=== PATIENT | female | born 1940 | race Caucasian/White ===

== ENCOUNTER → 2017-02-10 | Outpatient (CLI) | payer BC, OTHER ==
[~2017-02-10] MED LIST: ADVIN25050 INH; ALLGDUNK; ASPEC81 PO; ATEN50TA8 PO; CLCC1250 PO; DYZ PO; GLC500 PO; LEVAAER2 INH; LISI5TAB3 PO; MOME50SP5; PRED10TA PO; SIMV40TA2 PO
--- NOTE | 2017-02-10 16:16 | MAMMOGRAPHY REPORT ---
BILATERAL DIGITAL SCREENING MAMMOGRAM WITH CAD: 02/10/2017 CLINICAL HISTORY: Routine screening. TECHNIQUE: Bilateral CC and MLO views were obtained. Current study was also evaluated with a Compute r Aided Detection (CAD) system. COMPARISON: Comparison is made to exams dated: 04/10/2015 mammogram, 02/22/2014 mammogram, 02/21/2013 ma mmogram - [facility], 02/20/2012 mammogram, 02/18/2011 mammogram, and 02/14/2010 mammo gram. BREAST COMPOSITION: There are scattered areas of fibroglandular density in both breasts. FINDINGS: There is a 5 mm nodular asymmetry in the slightly inferior middle one third of the right b reast, only seen on the MLO view, that is increasingly prominent compared to prior mammograms. Altho ugh this could represent normal overlapping fibroglandular tissue, additional spot compression tomosy nthesis views and possibly ultrasound are recommended. No other suspicious mass, architectural distortion or cluster of microcalcifications is seen bilatera lly. IMPRESSION: ACR BI-RADS CATEGORY 0: INCOMPLETE EVALUATION: NEED ADDITIONAL IMAGING EVALUATION The 5 mm asymmetry in the inferior right breast needs additional evaluation. The patient will be called to schedule an appointment. Approximately 10% of breast cancers are not detected with mammography. A negative mammographic report should not delay biopsy if a clinically suggestive mass is present. Teodora Cornell M.D. ay/:02/10/2017 15:35:36 [employer] Inserter: Jenifer RESENDIZ(R)(Nitish), [facility] letter sent: Addl Imaging 0 BI-RADS Code: ACR BI-RADS Category 0: Incomplete Evaluation: Need Additional Imaging Evaluation
== END | disposition home or self-care (01) ==
LOC: C.MAMM 14:54
PROVIDERS: ATTEND Internal Medicine
DX: Z12.31 Encounter for screening mammogram for malignant neoplasm of breast (principal)

== ENCOUNTER → 2017-02-17 | Outpatient (CLI) | payer BC, OTHER ==
--- NOTE | 2017-02-17 14:43 | MAMMOGRAPHY REPORT ---
UNILATERAL RIGHT DIGITAL DIAGNOSTIC MAMMOGRAM TOMOSYNTHESIS AND TARGETED RIGHT ULTRASOUND: 02/17/2017 CLINICAL HISTORY: 76-year-old woman called back from screening mammography for an asymmetry in the in ferior right breast, best seen on the MLO view. TECHNIQUE: Spot compression right CC and MLO 2-D digital and tomosynthesis images were obtained. COMPARISON: Comparison is made to exams dated: 04/10/2015 mammogram, 02/22/2014 mammogram, 02/10/2017 margarita mogram, 02/21/2013 mammogram - [facility], 02/20/2012 mammogram, and 02/18/2011 mammog poornima. BREAST COMPOSITION: There are scattered areas of fibroglandular density in the right breast. FINDINGS: There is persistence of an oval circumscribed 5.1 x 7.9 x 6.3 mm mass in the 6:00 middle to anterior right breast. No associated architectural distortion or microcalcification. No other foca l area of architectural distortion or obvious mass is seen in the visualized right breast. Further e valuation with ultrasound was performed. Targeted ultrasound was performed in the 12:00, retroareolar and 6:00 axes of the right breast. In t he 6:00 periareolar right breast, there is an oval parallel circumscribed anechoic benign simple cyst with posterior acoustic enhancement. It measures 8.4 x 2.7 x 4.6 mm and correlates well in size, sh ape and location as the mammographic mass. This is benign and no further workup is needed at this ti me. IMPRESSION: ACR BI-RADS CATEGORY 2: BENIGN, TARGETED ULTRASOUND ACR BI-RADS CATEGORY 2: BENIGN The right inferior mammographic asymmetry represents a circumscribed oval mass, as seen on the additi onal mammographic views and tomosynthesis images, which correlates with a benign anechoic simple cyst on ultrasound. This is benign and no further workup is needed at this time. Recommend return to an nual screening mammography schedule. These results and recommendations were discussed with the patient at the time of the exam. Approximately 10% of breast cancers are not detected with mammography. A negative mammographic report should not delay biopsy if a clinically suggestive mass is present. Teodora Cornell M.D. ay/:02/17/2017 14:22:51 [place] Guide: Jenifer Feliciano, [facility] letter sent: Normal 09/08 BI-RADS Code: ACR BI-RADS Category 2: Benign Ultrasound BI-RADS: ACR BI-RADS Category 2: Benign
== END | disposition home or self-care (01) ==
LOC: C.MAMM 13:47
PROVIDERS: ATTEND Internal Medicine
DX: N64.89 Other specified disorders of breast (principal)

== ENCOUNTER 2024-05-01 13:24 | Inpatient (IN) ==
--- NOTE | 2024-05-01 13:48 | Emergency Department Note ---
Impression & Plan Acute and chronic respiratory failure with hypercapnia, Acute exacerbation of chronic obstructive pulmonary disease ED Provider Note Provider: Miles Gonzalez MD DATE OF SERVICE: 05/01/2024 CHIEF COMPLAINT: Trouble breathing, weakness HISTORY OF PRESENT ILLNESS: Patient is a 83-year-old female past medical history significant for COPD on chronic 2 L oxygen at home presenting here via ambulance from home. States increased weakness and losing weight the last several weeks at least. Last day or so has been more short of breath. Nebulizers at home not helping. No significant sick contacts at home. Reports some congestion that happens when she gets sick but chronic unchanged cough. States some palpitations today but no syncope or trauma. Chronic neuropathy of the lower legs but no new significant focal numbness or weakness or severe headache. Denies abdominal pain or nausea or vomiting but decreased intake and appetite. Received 3 DuoNebs for EMS with some improvement of her breathing. Still working to breathe and states hard to get out full sentences. Follows with pulmonary and [place]. States she was last this sick in 2007. PAST MEDICAL HISTORY: As noted above MEDICATIONS: Reviewed home medications SOCIAL HISTORY: lives at home with who is ill with cancer PHYSICAL EXAM: GENERAL: alert and oriented in no acute distress on stretcher Head: normocephalic and atraumatic EYES: No injection, discharge or icterus. EOMI. NECK: Trachea midline. Supple. ENT: Mucous membranes pink and moist. LUNGS: Airway patent. Significant work of breathing. 5-6 word dyspnea. Faint breath sounds bilaterally. HEART: Regular tachycardic rate and rhythm. No chest wall tenderness ABDOMEN: Soft and non-tender, without guarding or rebound. SKIN: Acyanotic, warm, dry, without rashes EXTREMITIES: Without swelling, tenderness or deformity NEUROLOGICAL: No focal deficits moving all extremities. No aphasia. No facial droop or slurred speech. EK bpm sinus tachycardia. LVH changes without clear acute ST segment elevation with some nonseptic inferior lateral T wave inversion. QTc 470. CONTINUOUS CARDIAC MONITORING: was ordered and showed a heart rate of 100s- 120spm in sinus tachycardia & later heart rate of the 90s in sinus rhythm. Patient's laboratory studies and imaging reviewed. Differential includes Reactive airway disease, pneumonia, pneumothorax, COPD, CHF, infections, cardiac ischemia, pulmonary embolism, musculoskeletal, gastrointestinal, as well as other pathologies. IMPRESSION/MEDICAL DECISION MAKING: Patient appears to be struggling to breathe but not hypoxic on her baseline 2 L oxygen. Some DuoNebs prior to arrival. Some tachycardia. Denies fever but concern for possible COPD exacerbation. X-ray to be obtained to exclude pneumonia or pneumothorax. Does not seem fluid overloaded on clinical exam. Denies significant chest pain. EKG obtained given the tachycardia but appears not to be A-fib or significant arrhythmia. Will give some steroid as well as additional breathing treatment. Given her work of breathing will initiate BiPAP. VBG sent but does not appear severely encephalopathic. Respiratory viral panel sent to look for possible viral etiology to her symptoms. Blood work here with minimal lactate elevation of 2.4 but a significant hypercarbia of 91 with a pH of 7.1. Again BiPAP was initiated. Small fluid bolus given. Chest x-ray per my review without evidence of pneumonia, pneumothorax, or significant fluid on the lungs. Troponin minimally up at 29 question demand related to her respiratory status. No significant electrolyte abnormality signs of renal dysfunction. Leukocytosis of 15.6. Unclear if this is reactive but do not again see an obvious pneumonia. Will cover with a dose of azithromycin given her COPD for any atypical component and anti-inflammatory effect. Does have a history of CAD-will avoid stronger antibiotics at this point without an elevated procalcitonin. Improving with BiPAP. Will admit for further care here at the hospital. Respiratory viral panel does later returned negative. VBG with improving acidosis and hypercarbia. DIAGNOSIS: Acute on chronic hypoxic respiratory failure, acute COPD exacerbation DISPOSITION: Hospitalist will evaluate Patient was agreeable with this plan. Critical Care I have personally spent 42 minutes of critical care time in the direct management of this patient. This includes bedside care, interpretation of diagnostic studies, and testing, discussion with consultants, patient, and family members, and other required patient management activities. These 42 minutes is in excess of all separately billable procedures. Past Med/Surg History Problem List (Updated 05/01/24 @ 16:58 by Radha Brown PA-C) Hyperglycemia Elevated troponin Acute respiratory acidosis Acute exacerbation of chronic obstructive pulmonary disease (Acute) Acute and chronic respiratory failure with hypercapnia (Acute) Medical History HLD (hyperlipidemia) HTN (hypertension) Anxiety COPD (chronic obstructive pulmonary disease) Surgical History No pertinent past surgical history Family History Other Hypertension Social History (Updated 05/01/24 @ 16:22 by Radha Brown PA-C) Smoking Status: Former smoker Tobacco Type: Cigarettes Smoking End Date: 2007; Hx Alcohol Use: Yes Alcohol Intake Frequency: Monthly or Less Hx Substance Use: No Feels Safe at Home: Yes Allergies Allergies Allergy/AdvReac Type Severity Reaction Status Date / Time No Known Allergies Allergy Mild Verified 05/25/08 10:49 bee venom protein (honey bee) AdvReac Intermediate SWELLING Verified 05/01/24 14:54 Home Meds Home Medications Medication Instructions Recorded Confirmed aspirin 81 mg tablet,delayed 81 mg PO DAILY ##0 05/25/08 05/01/24 release fexofenadine-pseudoephedrine ER 1 tab PO QAM ##0 05/25/08 05/01/24 180 mg-240 mg tablet,ext.release 24 hr (Katie-D 24 Hour) fluticasone fur. 100 mcg-umeclid 1 inh inhalation DAILY 05/01/24 05/01/24 62.5 mcg-vilant 25 mcg inhalat.powder (Trelegy Ellipta) food supplemt, lactose-reduced 1 ea PO DAILY 05/01/24 05/01/24 (Ensure oral liquid) hydrocortisone 2.5 % topical cream 1 applic topical DAILY 05/01/24 05/01/24 levalbuterol tartrate 45 1 puff inhalation DAILY 05/01/24 05/01/24 mcg/actuation aerosol inhaler lisinopril 10 mg tablet 10 mg PO DAILY 05/01/24 05/01/24 rosuvastatin 20 mg tablet 20 mg PO DAILY 05/01/24 05/01/24 Results & Data (ED) Vital Signs Vital Signs - 24 hr 05/01/24 13:31 05/01/24 13:35 05/01/24 13:35 Temperature 36.8 C Temperature Source Oral Pulse Rate 113 H 111 H Pulse Rate [Apical] Pulse Rate from SpO2 Sensor Respiratory Rate 28 H Respiratory Effort / Characteristics Respiratory Depth Blood Pressure 142/92 H Blood Pressure Mean 108 Pulse Oximetry 95 Oxygen Delivery Method Nasal Cannula Nasal Cannula Oxygen Flow Rate 2 Fraction of Inspired Oxygen Sepsis Recent Fever Within 48 Hours No Sepsis New/Unexplained Change in Mental Status No Sepsis Action Taken by Nursing Physician Notified 05/01/24 14:08 05/01/24 14:08 05/01/24 14:30 Temperature Temperature Source Pulse Rate 103 H 96 H Pulse Rate [Apical] 103 H Pulse Rate from SpO2 Sensor Respiratory Rate 22 22 19 Respiratory Effort / Characteristics Spontaneous Accessory Muscle Use Short of Breath Spontaneous Accessory Muscle Use Respiratory Depth Deep Blood Pressure 109/53 L Blood Pressure Mean 78 Pulse Oximetry 97 97 98 Oxygen Delivery Method BiPAP BiPAP Oxygen Flow Rate Fraction of Inspired Oxygen 30 30 Sepsis Recent Fever Within 48 Hours Sepsis New/Unexplained Change in Mental Status Sepsis Action Taken by Nursing 05/01/24 14:35 05/01/24 15:00 05/01/24 15:30 Temperature Temperature Source Pulse Rate 102 H 99 H Pulse Rate [Apical] Pulse Rate from SpO2 Sensor 97 H Respiratory Rate 27 H 24 Respiratory Effort / Characteristics Respiratory Depth Blood Pressure 114/78 119/86 Blood Pressure Mean 93 97 Pulse Oximetry 97 96 98 Oxygen Delivery Method BiPAP Oxygen Flow Rate Fraction of Inspired Oxygen Sepsis Recent Fever Within 48 Hours Sepsis New/Unexplained Change in Mental Status Sepsis Action Taken by Nursing 05/01/24 16:00 05/01/24 17:00 05/01/24 17:11 Temperature Temperature Source Pulse Rate 92 H 80 89 Pulse Rate [Apical] Pulse Rate from SpO2 Sensor 94 H 81 Respiratory Rate 26 H 17 Respiratory Effort / Characteristics Respiratory Depth Blood Pressure 122/61 129/66 Blood Pressure Mean 88 87 Pulse Oximetry 97 96 Oxygen Delivery Method Oxygen Flow Rate Fraction of Inspired Oxygen Sepsis Recent Fever Within 48 Hours Sepsis New/Unexplained Change in Mental Status Sepsis Action Taken by Nursing 05/01/24 17:42 Temperature Temperature Source Pulse Rate 94 H Pulse Rate [Apical] Pulse Rate from SpO2 Sensor 96 H Respiratory Rate 20 Respiratory Effort / Characteristics Respiratory Depth Blood Pressure 138/64 Blood Pressure Mean 88 Pulse Oximetry 93 Oxygen Delivery Method Oxygen Flow Rate Fraction of Inspired Oxygen Sepsis Recent Fever Within 48 Hours Sepsis New/Unexplained Change in Mental Status Sepsis Action Taken by Nursing Laboratory Data 05/01/24 13:30 05/01/24 13:30 Lab Results 05/01/24 05/01/24 05/01/24 Range/Units 13:30 14:04 15:21 WBC 15.68 H (4.8-10.8) K/ul RBC 4.92 (4.20-5.40) M/uL Hgb 15.2 (12.0-16.0) g/dl Hct 46.7 (37.0-47.0) % MCV 94.9 (80.0-100.0) fL MCH 30.9 (25.0-34.0) pg MCHC 32.5 (32.0-36.0) g/dL RDW Std Deviation 45.8 (36.4-46.3) fL RDW Coeff of Aries 13.1 (11.5-14.5) % Plt Count 235 (130-400) K/uL MPV 10.5 (9.4-12.4) fL Immature Gran % (Auto) 0.3 % Neut % (Auto) 85.7 % Lymph % (Auto) 8.1 % Donley % (Auto) 4.8 % Eos % (Auto) 0.6 % Baso % (Auto) 0.5 % Neut # (Auto) 13.43 H (1.40-6.50) K/uL Lymph # (Auto) 1.27 (1.20-3.40) K/uL Donley # (Auto) 0.75 H (0.11-0.59) K/uL Eos # (Auto) 0.10 (0.00-0.50) K/uL Baso # (Auto) 0.08 (0.00-0.20) K/uL Immature Gran # (Auto) 0.05 (0.01-0.20) K/uL PT 10.4 (9.0-12.0) Seconds INR 1.0 (0.9-1.1) APTT 24 (21-31) Seconds PTT Ratio 0.9 ABG pH (7.35-7.45) ABG pCO2 (35-46) mmHg ABG pO2 (80-95) mmHg ABG HCO3 (19-24) mmol/L ABG O2 Saturation (90-95) % ABG Base Excess (-9-1.8) mEq/L Yair Test (Pos) VBG pH 7.13 L (7.36-7.41) VBG pCO2 91 H (38-50) mmHg VBG pO2 25 mmHg VBG HCO3 30 mmol/L VBG O2 Saturation < 60.0 % VBG Base Excess -1.5 mEq/L Oxygen Given Sodium 140 (136-145) mmol/L Potassium 4.3 (3.5-5.1) mmol/L Chloride 102 (98-107) mmol/L Carbon Dioxide 32 (21-32) mmol/L Anion Gap 6 (3-11) BUN 18 (6-23) mg/dl Creatinine 0.82 (0.6-1.2) mg/dl Est Cr Clr Drug Dosing 34.0 ml/min Est GFR ( Amer) 76.2 ml/min Est GFR (Non-Af Amer) 65.7 ml/min BUN/Creatinine Ratio 22.0 H (10-20) Glucose 237 H (70-99(Fasting)) mg/dl Lactate 2.4 H* 2.2 H* (0.4-2.0) mmol/L Calcium 9.3 (8.6-10.3) mg/dl Magnesium 2.2 (1.7-2.4) mg/dl Total Bilirubin 0.6 (0.2-1.0) mg/dl AST 22 (13-39) U/L ALT 16 (7-52) U/L Alkaline Phosphatase 73 (34-104) U/L Troponin I High Sens 29.6 H 49.1 H D (0-14) pg/ml Total Protein 7.0 (6.0-8.3) gm/dl Albumin 4.3 (3.4-5.0) gm/dl Globulin 2.7 (2.5-4.0) gm/dl Albumin/Globulin Ratio 1.6 (0.9-2) Procalcitonin 0.03 (0-0.5) ng/ml Adenovirus (PCR) Not Detected (NotDetected) B. pertussis DNA (PCR) Not Detected (NotDetected) B.parapertussis DNA PCR Not Detected (NotDetected) C. pneumoniae DNA (PCR) Not Detected (NotDetected) Coronavirus OC43 (PCR) Not Detected (NotDetected) Coronavirus HKU1 (PCR) Not Detected (NotDetected) Coronavirus 229E (PCR) Not Detected (NotDetected) SARS-CoV-2 (PCR) Not Detected (NotDetected) Coronavirus NL63 (PCR) Not Detected (NotDetected) Human Metapneumovir PCR Not Detected (NotDetected) Influenza Type A (PCR) Not Detected (NotDetected) Influenza Type B (PCR) Not Detected (NotDetected) M. pneumoniae (PCR) Not Detected (NotDetected) Parainfluenza 1 (PCR) Not Detected (NotDetected) Parainfluenza 2 (PCR) Not Detected (NotDetected) Parainfluenza 3 (PCR) Not Detected (NotDetected) Parainfluenza 4 (PCR) Not Detected (NotDetected) RSV (PCR) Not Detected (NotDetected) Entero/Rhino (PCR) Not Detected (NotDetected) 05/01/24 05/01/24 05/01/24 Range/Units 16:16 17:49 18:02 WBC (4.8-10.8) K/ul RBC (4.20-5.40) M/uL Hgb (12.0-16.0) g/dl Hct (37.0-47.0) % MCV (80.0-100.0) fL MCH (25.0-34.0) pg MCHC (32.0-36.0) g/dL RDW Std Deviation (36.4-46.3) fL RDW Coeff of Aries (11.5-14.5) % Plt Count (130-400) K/uL MPV (9.4-12.4) fL Immature Gran % (Auto) % Neut % (Auto) % Lymph % (Auto) % Donley % (Auto) % Eos % (Auto) % Baso % (Auto) % Neut # (Auto) (1.40-6.50) K/uL Lymph # (Auto) (1.20-3.40) K/uL [place]ley # (Auto) (0.11-0.59) K/uL Eos # (Auto) (0.00-0.50) K/uL Baso # (Auto) (0.00-0.20) K/uL Immature Gran # (Auto) (0.01-0.20) K/uL PT (9.0-12.0) Seconds INR (0.9-1.1) APTT (21-31) Seconds PTT Ratio ABG pH 7.43 (7.35-7.45) ABG pCO2 47 H (35-46) mmHg ABG pO2 77 L (80-95) mmHg ABG HCO3 31 H (19-24) mmol/L ABG O2 Saturation 96.6 H (90-95) % ABG Base Excess 5.8 H (-9-1.8) mEq/L Yair Test Pos (Pos) VBG pH 7.29 L (7.36-7.41) VBG pCO2 73 H (38-50) mmHg VBG pO2 33 mmHg VBG HCO3 35 mmol/L VBG O2 Saturation < 60.0 % VBG Base Excess 5.9 mEq/L Oxygen Given 2 L Sodium (136-145) mmol/L Potassium (3.5-5.1) mmol/L Chloride (98-107) mmol/L Carbon Dioxide (21-32) mmol/L Anion Gap (3-11) BUN (6-23) mg/dl Creatinine (0.6-1.2) mg/dl Est Cr Clr Drug Dosing ml/min Est GFR ( Amer) ml/min Est GFR (Non-Af Amer) ml/min BUN/Creatinine Ratio (10-20) Glucose (70-99(Fasting)) mg/dl Lactate 3.1 H* (0.4-2.0) mmol/L Calcium (8.6-10.3) mg/dl Magnesium (1.7-2.4) mg/dl Total Bilirubin (0.2-1.0) mg/dl AST (13-39) U/L ALT (7-52) U/L Alkaline Phosphatase (34-104) U/L Troponin I High Sens (0-14) pg/ml Total Protein (6.0-8.3) gm/dl Albumin (3.4-5.0) gm/dl Globulin (2.5-4.0) gm/dl Albumin/Globulin Ratio (0.9-2) Procalcitonin (0-0.5) ng/ml Adenovirus (PCR) (NotDetected) B. pertussis DNA (PCR) (NotDetected) B.parapertussis DNA PCR (NotDetected) C. pneumoniae DNA (PCR) (NotDetected) Coronavirus OC43 (PCR) (NotDetected) Coronavirus HKU1 (PCR) (NotDetected) Coronavirus 229E (PCR) (NotDetected) SARS-CoV-2 (PCR) (NotDetected) Coronavirus NL63 (PCR) (NotDetected) Human Metapneumovir PCR (NotDetected) Influenza Type A (PCR) (NotDetected) Influenza Type B (PCR) (NotDetected) M. pneumoniae (PCR) (NotDetected) Parainfluenza 1 (PCR) (NotDetected) Parainfluenza 2 (PCR) (NotDetected) Parainfluenza 3 (PCR) (NotDetected) Parainfluenza 4 (PCR) (NotDetected) RSV (PCR) (NotDetected) Entero/Rhino (PCR) (NotDetected) Administered Medications Discontinued Medications Albuterol (Albut/Ipratrop 3mg/0.5mg Neb 3 Ml Vial) 12 ml NEB ONE ONE; Protocol Stop: 05/01/24 13:47 Last Admin: 05/01/24 13:57 Dose: 12 ml Documented By: JONATHAN Sodium Chloride (Nss) 250 mls @ 999 mls/hr IV .Q16M ONE Stop: 05/01/24 14:15 Last Infusion: 05/01/24 15:03 Dose: Infused Documented By: Admin: 05/01/24 14:10 Dose: 999 mls/hr Documented By: ANNY Azithromycin 500 mg/ Dextrose 255 mls @ 127.5 mls/hr IV NOW STA Stop: 05/01/24 16:25 Last Infusion: 05/01/24 17:06 Dose: Infused Documented By: Admin: 05/01/24 15:03 Dose: 127.5 mls/hr Documented By: ANNY Methylprednisolone (Methylprednisolone 125 Mg/2 Ml Vial) 60 mg IV NOW STA Stop: 05/01/24 13:47 Last Admin: 05/01/24 14:07 Dose: 60 mg Documented By: ANNY Imaging Data Radiologist's Impression: Chest X-Ray 05/01/24 13:46 XR chest 1V portable HISTORY: Dyspnea COMPARISON: Chest 05/28/2008. FINDINGS: No pneumothorax. No pleural effusions. Hyperexpanded lungs with emphysema again noted. No focal lung consolidations to suggest a pneumonia. No evidence for bone edema. The heart is normal in size. Calcifications within the aortic knob. No acute fractures. IMPRESSION: 1. No acute process within the chest. 2. Emphysema. ACT 112: Negative or not required by law. Electronically signed by: Noe Lloyd M.D. 05/01/2024 3:22 PM Discharge Plan Visit Data Chief Complaint: Respiratory Distress ED Provider: Miles Gonzalez Discharge Problem: Acute and chronic respiratory failure with hypercapnia, Acute exacerbation of chronic obstructive pulmonary disease Patient Disposition: Admitted As Inpatient Forms Stand Alone Forms: [facility] Prescriptions Prescriptions: No Action aspirin 81 mg Tablet,Delayed Release (Dr/Ec) 81 mg PO DAILY Qty: 0 fexofenadine-pseudoephedrine [Katie-D 24 Hour] 180-240 mg Tablet Extended Release 24 Hr 1 tab PO QAM Qty: 0 lisinopril 10 mg tablet 10 mg PO DAILY hydrocortisone 2.5 % cream 1 applic TOPICAL DAILY rosuvastatin 20 mg tablet 20 mg PO DAILY levalbuterol tartrate 45 mcg/actuation HFA aerosol inhaler 1 puff INHALATION DAILY Trelegy Ellipta 100-62.5-25 mcg blister with device 1 inh INHALATION DAILY Ensure Liquid 1 ea PO DAILY Referrals Referrals: Kerrie Kidd [Primary Care Provider] -
[2024-05-01 13:55] LABS: Base Excess VBG -1.5 mEq/L; HCO3 VBG 30 mmol/L; Oxygen Saturation VBG < 60.0 %; PCO2 VBG 91 mmHg (38-50); PO2 VBG 25 mmHg; pH VBG 7.13 (7.36-7.41)
[2024-05-01] MEDS: ALBUT/IPRATROP 3MG/0.5MG NEB 3 ML VIAL NEB ONE (13:57)
[2024-05-01 14:01] LABS: Basophils # (auto) 0.08 K/uL (0.00-0.20); Basophils % (auto) 0.5 %; Eosinophils % (auto) 0.6 %; Hematocrit (blood only) 46.7 % (37.0-47.0); Hemoglobin 15.2 g/dl (12.0-16.0); Immature Granulocytes # (auto) 0.05 K/uL (0.01-0.20); Immature Granulocytes % (auto) 0.3 %; Lymphocytes # (auto) 1.27 K/uL (1.20-3.40); Lymphocytes % (auto) 8.1 %; Mean Corpuscular Hemoglobin 30.9 pg (25.0-34.0); Mean Corpuscular Hgb Conc 32.5 g/dL (32.0-36.0); Mean Corpuscular Volume 94.9 fL (80.0-100.0); Mean Platelet Volume 10.5 fL (9.4-12.4); Monocytes # (auto) 0.75 K/uL (0.11-0.59); Monocytes % (auto) 4.8 %; Neutrophils # (auto) 13.43 K/uL (1.40-6.50); Neutrophils % (auto) 85.7 %; Platelet Count 235 K/uL (130-400); RDW Coefficient of Variation 13.1 % (11.5-14.5); RDW Standard Deviation 45.8 fL (36.4-46.3); Red Blood Count 4.92 M/uL (4.20-5.40); White Blood Count 15.68 K/ul (4.8-10.8)
[2024-05-01] MEDS: methylPREDNISolone 125 MG/2 ML VIAL IV STA (14:07)
[2024-05-01 14:09] LABS: Partial Thromboplastin Ratio 0.9; Partial Thromboplastin Time 24 Seconds (21-31); Prothrombin Time 10.4 Seconds (9.0-12.0)
[2024-05-01] MEDS: SODIUM CHLORIDE 0.9% 250 ML IV ONE (14:10)
[2024-05-01 14:15] LABS: Albumin Globulin Ratio 1.6 (0.9-2); Albumin Level 4.3 gm/dl (3.4-5.0); Bilirubin,Total 0.6 mg/dl (0.2-1.0); Calcium 9.3 mg/dl (8.6-10.3); Est GFR (African American) 76.2 ml/min; Est GFR (Non-African American) 65.7 ml/min; Globulin 2.7 gm/dl (2.5-4.0); Magnesium 2.2 mg/dl (1.7-2.4); Potassium 4.3 mmol/L (3.5-5.1)
[2024-05-01 14:21] LABS: Troponin I High Sensitivity 29.6 pg/ml (0-14)
[2024-05-01] MEDS: AZITHROMYCIN 500 MG in DEXTROSE 5% 250 ML IV STA (15:03)
--- NOTE | 2024-05-01 15:24 | XRay Report ---
XR chest 1V portable HISTORY: Dyspnea COMPARISON: Chest 05/28/2008. FINDINGS: No pneumothorax. No pleural effusions. Hyperexpanded lungs with emphysema again noted. No f ocal lung consolidations to suggest a pneumonia. No evidence for bone edema. The heart is normal in s ize. Calcifications within the aortic knob. No acute fractures. IMPRESSION: 1. No acute process within the chest. 2. Emphysema. ACT 112: Negative or not required by law. Electronically signed by: Noe Lloyd M.D. 05/01/2024 3:22 PM
--- NOTE | 2024-05-01 15:25 | History & Physical Report ---
Date of Service May 01, 2024 Assessment & Plan (1) Acute respiratory acidosis: (2) Acute exacerbation of chronic obstructive pulmonary disease: (3) Acute and chronic respiratory failure with hypercapnia: Plan: This is an 83-year-old female with PMH of COPD, chronic hypoxic respiratory failure on 2 L nasal cannula O2, hypertension, hyperlipidemia, anxiety and other medical problems listed below who presents with progressive shortness of breath over the past 3 to 4 days and was found to have a COPD exacerbation. Patient tachypneic on arrival, VBG pH 7.1 with pCO2 in 90s Afebrile, WBC 15.68K, procal 0.03, resp viral panel negative Meeting SIRs criteria but no clear infection Bipap initiated in ED with improvement, also received albuterol breathing tx, Solu-medrol 60mg IV and Azithromycin in ED Continue bipap with repeat VBG ABG at 1800, IV Solu-medrol 40mg Q8H, Duonebs QIDR, Azithromycin course, Mucinex, Mucomyst, incentive spirometry Remote hx of following with [facility] (4) Elevated troponin: Plan: Initial trop 29.6 -> 49.1 in setting of sinus tachycardia Continue trending troponin (5) Hyperglycemia: Plan: BSG 237, no known DM II hx, not on home meds Will obtain a1c, add SSI and glycemic consult given IV steroids and continue gentle IV fluids (6) HTN (hypertension): Plan: Normotensive. Continue lisinopril (7) HLD (hyperlipidemia): Plan: Continue statin (8) Anxiety: Plan: Previously on SSRI but discontinued weeks ago DVT Ppx: SQ heparin Code status: FULL PCP: Marti Dispo: Admitted to PCU Patient seen in collaboration with Dr. Paredes. Please see addendum. I spent a total of 75 minutes coordinating, documenting, and providing care for this patient excluding time spent in the performance of separately billed services. History of Present Illness Chief Complaint: SOB Primary Care Provider: Kerrie Kidd This is an 83-year-old female with PMH of COPD, chronic hypoxic respiratory failure on 2 L nasal cannula O2, hypertension, hyperlipidemia, anxiety and other medical problems listed below who presents with progressive shortness of breath over the past 3 to 4 days. Associated with productive cough with yellow sputum. Does have some pleuritic chest pain associated with it. No fever, chills, sore throat, nausea, vomiting, abdominal pain, dysuria. Struggles with chronic constipation, last bowel movement 2 days ago[address] with Dr[address] Kidd for primary care. Allergies Allergy/AdvReac Type Severity Reaction Status Date / Time No Known Allergies Allergy Mild Verified 05/25/08 10:49 bee venom protein (honey bee) AdvReac Intermediate SWELLING Verified 05/01/24 14:54 Home Medications Medication Instructions Recorded Confirmed Type aspirin 81 mg tablet,delayed 81 mg PO DAILY ##0 05/25/08 05/01/24 History release fexofenadine-pseudoephedrine ER 1 tab PO QAM ##0 05/25/08 05/01/24 History 180 mg-240 mg tablet,ext.release 24 hr (Katie-D 24 Hour) fluticasone fur. 100 mcg-umeclid 1 inh inhalation DAILY 05/01/24 05/01/24 History 62.5 mcg-vilant 25 mcg inhalat.powder (Trelegy Ellipta) food supplemt, lactose-reduced 1 ea PO DAILY 05/01/24 05/01/24 History (Ensure oral liquid) hydrocortisone 2.5 % topical cream 1 applic topical DAILY 05/01/24 05/01/24 History levalbuterol tartrate 45 1 puff inhalation DAILY 05/01/24 05/01/24 History mcg/actuation aerosol inhaler lisinopril 10 mg tablet 10 mg PO DAILY 05/01/24 05/01/24 History rosuvastatin 20 mg tablet 20 mg PO DAILY 05/01/24 05/01/24 History Past Med/Surg History Problem List (Updated 05/01/24 @ 16:58 by Radha Brown PA-C) Hyperglycemia Elevated troponin Acute respiratory acidosis Acute exacerbation of chronic obstructive pulmonary disease (Acute) Acute and chronic respiratory failure with hypercapnia (Acute) Medical History HLD (hyperlipidemia) HTN (hypertension) Anxiety COPD (chronic obstructive pulmonary disease) Surgical History No pertinent past surgical history Family History Other Hypertension Social History (Updated 05/01/24 @ 16:22 by Radha Brown PA-C) Smoking Status: Former smoker Tobacco Type: Cigarettes Smoking End Date: 2007; Hx Alcohol Use: Yes Alcohol Intake Frequency: Monthly or Less Hx Substance Use: No Feels Safe at Home: Yes Review of Systems Review of Systems: At least ten systems reviewed and negative except as noted in the HPI. Physical Exam Physical Exam: Please see Dr. Paredes's addendum for physical exam. Results & Data Results & Data Vital Signs (Past 12 Hours) Vital Signs Temp Pulse Pulse Resp BP Pulse Ox O2 Del Method 05/01/24 14:35 97 BiPAP 05/01/24 14:30 96 H 19 109/53 L 98 BiPAP 05/01/24 14:08 103 H 22 97 BiPAP 05/01/24 14:08 103 H 22 97 05/01/24 13:35 Nasal Cannula 05/01/24 13:35 36.8 C 111 H 28 H 142/92 H 95 Nasal Cannula 05/01/24 13:31 113 H O2 Flow Rate FiO2 05/01/24 14:35 05/01/24 14:30 05/01/24 14:08 30 05/01/24 14:08 30 05/01/24 13:35 05/01/24 13:35 2 05/01/24 13:31 Laboratory Results Short CBC 05/01/24 Range/Units 13:30 WBC 15.68 H (4.8-10.8) K/ul Hgb 15.2 (12.0-16.0) g/dl Hct 46.7 (37.0-47.0) % Plt Count 235 (130-400) K/uL BMP 05/01/24 13:30 Sodium 140 Potassium 4.3 Chloride 102 Carbon Dioxide 32 BUN 18 Creatinine 0.82 Glucose 237 H Calcium 9.3 Liver Function 05/01/24 Range/Units 13:30 Total Bilirubin 0.6 (0.2-1.0) mg/dl AST 22 (13-39) U/L ALT 16 (7-52) U/L Alkaline Phosphatase 73 (34-104) U/L Albumin 4.3 (3.4-5.0) gm/dl Diagnostic Findings Chest X-Ray 05/01/24 13:46 XR chest 1V portable HISTORY: Dyspnea COMPARISON: Chest 05/28/2008. FINDINGS: No pneumothorax. No pleural effusions. Hyperexpanded lungs with emphysema again noted. No focal lung consolidations to suggest a pneumonia. No evidence for bone edema. The heart is normal in size. Calcifications within the aortic knob. No acute fractures. IMPRESSION: 1. No acute process within the chest. 2. Emphysema. ACT 112: Negative or not required by law. Electronically signed by: Noe Lloyd M.D. 05/01/2024 3:22 PM ECG Additional Comments: EKG reviewed - sinus tach @ [address] elevation, inferior lateral T wave inversion. Supervising Physician Co-Signing Physician Notes 83-year-old lady with PMH of COPD, Chronic hypoxic resp failure on 2L NC O2, HTN, HLD, anxiety presented to the ED with complaint of shortness of breath. Patient reports having, worsening shortness of breath for the last 3 to 4 days, increased cough for about same duration with yellow sputum associated with chest tightness and palpitation. Patient utilizes 2 L oxygen at home, currently requiring BiPAP at bedside exam. Patient denies fever/ chest pain/sore throat. Patient reports quitting smoking in 2007, denies alcohol use. Is full code. Labs reviewed, leukocytosis noted, procalcitonin negative, lactate elevated. Respiratory pathogen panel negative. CXR with no acute process, emphysema noted. Active problems: Acute exacerbation of COPD likely secondary to viral bronchitis: VBG w/ CO2 of 91. Solu-Medrol 40 mg every 8 hours IV. DuoNebs every 6 hours, Mucomyst, Mucinex, formoterol and budesonide nebs twice daily, incentive spirometer. Utilize BPAP, repeat ABG at around 6 PM - shows improved CO2 clearance. Severe sepsis in the setting of likely viral bronchitis: Lactate elevated. Expect to improve with treatment of underlying condition. Continue with IV fluids at 60 mL an hour. On exam: GENERAL: Alert and oriented x3. NAD, on BPAP. Appears old/frail/weak. HEENT: No pallor, no icterus. Pupils equal, round and reactive to light. Oral mucosa moist. NECK: No JVD, no neck masses. HEART: S1 and S2 heard. Regular rate and rhythm. TAchy No murmur, no gallop. RESPIRATORY SYSTEM: Normal AP diameter. No accessory muscle use. No wheezing, no crackles. Severely decreased breath sound b/l. ABDOMEN: Soft, bowel sounds present, nontender, no distention. CENTRAL NERVOUS SYSTEM: No facial droop. Speech is clear. Obeys simple commands. Moves extremities. EXTREMITIES: No edema, no erythema seen. I have seen and examined the patient and have discussed the case with the provider above. I agree with the assessment and plan as stated.
[2024-05-01 15:35] LABS: Adenovirus PCR Not Detected (NotDetected); Bordetella parapertussis PCR Not Detected (NotDetected); Bordetella pertussis PCR Not Detected (NotDetected); Chlamydia pneumoniae PCR Not Detected (NotDetected); Coronavirus 229E PCR Not Detected (NotDetected); Coronavirus CoV-2 (COVID19)PCR Not Detected (NotDetected); Coronavirus HKU1 PCR Not Detected (NotDetected); Coronavirus NL63 PCR Not Detected (NotDetected); Coronavirus OC43PCR Not Detected (NotDetected); Human Metapneumovirus PCR Not Detected (NotDetected); Influenza A PCR Not Detected (NotDetected); Influenza B PCR Not Detected (NotDetected); Mycoplasma pneumoniae PCR Not Detected (NotDetected); Parainfluenza Virus 1 PCR Not Detected (NotDetected); Parainfluenza Virus 2 PCR Not Detected (NotDetected); Parainfluenza Virus 3 PCR Not Detected (NotDetected); Parainfluenza Virus 4 PCR Not Detected (NotDetected); Respiratory Syncytial VirusPCR Not Detected (NotDetected); Rhinovirus/Enterovirus PCR Not Detected (NotDetected)
[2024-05-01 16:31] LABS: Base Excess VBG 5.9 mEq/L; HCO3 VBG 35 mmol/L; Oxygen Saturation VBG < 60.0 %; PCO2 VBG 73 mmHg (38-50); PO2 VBG 33 mmHg; pH VBG 7.29 (7.36-7.41)
[2024-05-01 18:20] LABS: Base Excess ABG 5.8 mEq/L (-9-1.8); HCO3 ABG 31 mmol/L (19-24); Oxygen Saturation ABG 96.6 % (90-95); PCO2 ABG 47 mmHg (35-46); PO2 ABG 77 mmHg (80-95); pH ABG 7.43 (7.35-7.45)
[2024-05-01 18:26] LABS: Allen Test Pos (Pos)
[2024-05-01] MEDS ORDERED: ACETAMINOPHEN 325 MG TAB PO PRN (18:43)
[2024-05-01] MEDS ORDERED: ONDANSETRON INJ 2 MG/ML 2 ML VIAL IV PRN (18:43)
[2024-05-01 19:05] LABS: Estimated Average Glucose 123 mg/dl; Hemoglobin A1C 5.9 % (4.5-5.6)
[2024-05-01] MEDS: ACETYLCYSTEINE 20% INHAL SOLN 4ML ***DISPENSED BY RESP. INH SCH (20:19)
[2024-05-01] MEDS: ALBUT/IPRATROP 3MG/0.5MG NEB 3 ML VIAL NEB SCH (20:19)
[2024-05-01] MEDS: FORMOTEROL 20 MCG/2 ML VIAL NEB SCH (20:55)
[2024-05-01] MEDS: THIAMINE HCL 100 MG TAB PO SCH (20:59)
[2024-05-01] MEDS: guaiFENesin 600 MG TABCR PO SCH (20:59)
[2024-05-01] MEDS: methylPREDNISolone 40 MG in SYRINGE 0 ML IV SCH (20:59)
[2024-05-01] MEDS: SODIUM CHLORIDE 0.9% 1,000 ML IV SCH (21:01)
[2024-05-01] MEDS ORDERED: CARBOHYDRATES FOR HYPOGLYCEMIA PO PRN (23:30)
[2024-05-01] MEDS ORDERED: GLUCAGON FOR INJ 1 MG VIAL IM PRN (23:30)
[2024-05-01] MEDS ORDERED: DEXTROSE 50% 50 ML SYRINGE IV PRN (23:30)
[2024-05-01] MEDS ORDERED: GLUCOSE 40% GEL 15 GM TUBE PO PRN (23:30)
[2024-05-01] MEDS ORDERED: GLUCOSE 10 TAB/TUBE PO PRN (23:30)
[2024-05-02] MEDS: INSULIN ASPART PER UNIT CHARGE SC SCH (00:25)
[2024-05-02 06:13] LABS: Hematocrit (blood only) 42.5 % (37.0-47.0); Hemoglobin 13.9 g/dl (12.0-16.0); Mean Corpuscular Hemoglobin 30.3 pg (25.0-34.0); Mean Corpuscular Hgb Conc 32.7 g/dL (32.0-36.0); Mean Corpuscular Volume 92.6 fL (80.0-100.0); Mean Platelet Volume 10.5 fL (9.4-12.4); Platelet Count 190 K/uL (130-400); RDW Coefficient of Variation 13.2 % (11.5-14.5); RDW Standard Deviation 44.5 fL (36.4-46.3); Red Blood Count 4.59 M/uL (4.20-5.40)
[2024-05-02 06:27] LABS: BUN Creatinine Ratio 26.2 (10-20); Calcium 9.4 mg/dl (8.6-10.3); Creatinine Clr Calc Pharmacy 43.1 ml/min; Est GFR (African American) 94.5 ml/min; Est GFR (Non-African American) 81.5 ml/min; Potassium 4.6 mmol/L (3.5-5.1)
[2024-05-02] MEDS: BUDESONIDE 0.5 MG/2 ML VIAL (PULMICORT) NEB SCH (07:24)
[2024-05-02] MEDS ORDERED: PHARMACY GLYCEMIC MGMT CONSULT PRN (08:00)
[2024-05-02] MEDS: UMECLIDINIUM/VILANTEROL 62.5/25MCG 7 PUFFS/INHALER INH SCH (08:07)
[2024-05-02] MEDS: lisinopril 10 MG TAB PO SCH (08:08)
[2024-05-02] MEDS: ROSUVASTATIN CALCIUM 20 MG TAB PO SCH (08:08)
[2024-05-02] MEDS: ASPIRIN 81 MG ECTAB PO SCH (08:08)
[2024-05-02] MEDS ORDERED: FLUTICASONE FUROATE 100MCG 14 PUFFS/INHALER INH SCH (09:00)
[2024-05-02] MEDS ORDERED: NON-FORMULARY MEDICATION (Fluticasone-Umeclidin-Vilanter [Trelegy Ellipta] 100-62.5-25 mcg INH SCH (09:00)
[2024-05-02] MEDS ORDERED: LEVALBUTEROL TARTRATE 15 GM HFA.AER.AD INH SCH (09:00)
--- NOTE | 2024-05-02 09:04 | Hospitalist Progress Note ---
Date of Service May 02, 2024 Assessment & Plan (1) Acute respiratory acidosis: (2) Acute exacerbation of chronic obstructive pulmonary disease: (3) Acute and chronic respiratory failure with hypercapnia: (4) Elevated troponin: (5) Hyperglycemia: (6) HTN (hypertension): (7) HLD (hyperlipidemia): (8) Anxiety: Plan This is an 83-year-old female with PMH of COPD, chronic hypoxic respiratory failure on 2 L nasal cannula O2, hypertension, hyperlipidemia, anxiety and other medical problems listed below who presents with progressive shortness of breath over the past 3 to 4 days and was found to have a COPD exacerbation. Acute respiratory acidosis Acute exacerbation of chronic obstructive pulmonary disease Acute and chronic respiratory failure with hypercapnia Possible sepsis Patient tachypneic on arrival, tachycardic, VBG pH 7.1 with pCO2 in 90s Afebrile, WBC 15.68K resp viral panel negative Chest XR with no acute process, noting emphysema CTA chest pending UA pending Lactate elevated at 2.4, downtrended Meeting SIRs criteria but no clear infection Bipap initiated in ED with improvement, also received albuterol breathing tx, Solu-medrol 60mg IV and Azithromycin in ED Continue bipap, IV Solu-medrol 40mg Q8H, Duonebs QIDR, Azithromycin course, Mucinex, Mucomyst, incentive spirometry Remote hx of following with [place] Pulmonology consulted, appreciate recs Elevated troponin Initial trop 29.6 -> 49.1 in setting of sinus tachycardia Likely demand, doubt ACS Prediabetes Hyperglycemia BSG 237, no known DM II hx, not on home meds hgba1c of 5.9,, add SSI and glycemic consult given IV steroids and continue gentle IV fluids HTN (hypertension) Normotensive. Continue lisinopril HLD (hyperlipidemia) Continue statin Anxiety Previously on SSRI but discontinued weeks ago DVT Ppx: SQ heparin Code status: FULL PCP: Marti Dispo: Admitted to PCU Admission and Anticipated Discharge Date Admission Date: May 01, 2024 Subjective Pt was seen while sitting in bed. Mild distress at the time, using accessory muscles to breathe. States she had a rough episode with this many years ago. Review of Systems Review of Systems: All systems reviewed & are unremarkable except as noted in Subjective Physical Exam Physical Exam: General: Alert, oriented. mild distress, cachectic Psych: Appropriate mood and affect HEENT: NC/AT CV: RRR Resp: Breath sounds decreased bilaterally, no increased effort of breathing. Abdomen: Soft Extremities: No edema in lower extremities bilaterally. Results & Data Results & Data Vital Signs (Past 12 Hours) Vital Signs Temp Pulse Pulse Resp BP Pulse Ox O2 Del Method 05/02/24 07:59 36.6 C 91 H 17 152/73 H 96 Nasal Cannula 05/02/24 07:29 71 19 94 05/02/24 07:24 70 19 94 BiPAP 05/02/24 04:36 86 24 96 05/02/24 04:20 36.5 C 70 17 133/64 97 BiPAP 05/02/24 00:17 74 22 96 05/02/24 00:17 70 18 96 BiPAP 05/01/24 23:01 36.8 C 82 20 148/74 H 96 Nasal Cannula 05/01/24 21:58 89 05/01/24 21:34 98 H O2 Flow Rate FiO2 05/02/24 07:59 3 05/02/24 07:29 30 05/02/24 07:24 30 05/02/24 04:36 30 05/02/24 04:20 05/02/24 00:17 30 05/02/24 00:17 30 05/01/24 23:01 3 05/01/24 21:58 05/01/24 21:34 Diagnostic Findings Chest X-Ray 05/01/24 13:46 XR chest 1V portable HISTORY: Dyspnea COMPARISON: Chest 05/28/2008. FINDINGS: No pneumothorax. No pleural effusions. Hyperexpanded lungs with emphysema again noted. No focal lung consolidations to suggest a pneumonia. No evidence for bone edema. The heart is normal in size. Calcifications within the aortic knob. No acute fractures. IMPRESSION: 1. No acute process within the chest. 2. Emphysema. ACT 112: Negative or not required by law. Electronically signed by: Noe Lloyd M.D. 05/01/2024 3:22 PM
[2024-05-02] MEDS: OPTIRAY 320 125ml IV ONE (11:42)
[2024-05-02 11:46] LABS: Appearance Urine Clear (Clear); Bilirubin Urine Negative (Negative); Blood Urine Negative (Negative); Color Urine Yellow; Glucose Urine UA Negative (Negative); Ketones Urine Negative (Negative); Leukocyte Esterase Urine Negative (Negative); Nitrite Urine Negative (Negative); Protein Urine Negative (Negative); Urobilinogen Urine Negative (Negative)
--- NOTE | 2024-05-02 12:01 | Pulmonary Consultation ---
Date of Consultation May 02, 2024 Assessment & Plan (1) COPD with exacerbation: Patient with longstanding previous diagnosis of COPD. She does have significant emphysematous changes appreciated on plain films as well as CTA. Unable to appreciate any outpatient PFTs as she has not within network. 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 She uses Trelegy daily with Xopenex and and/or nebulized therapies daily as well. Presenting with COPD and acute exacerbation. Agree with continuing performance and budesonide for now. Can add Incruse while inpatient. She is without wheeze today. Would transition the patient to oral steroids starting tomorrow. Complete course of antibiotics with transition to oral therapy sooner than later. Can follow-up with her established outpatient pulmonary team at the time of discharge. (2) Acute and chronic respiratory failure with hypercapnia: Patient with 2 L supplemental oxygen at all times. During recent COPD exacerbation, she did turn her supplemental oxygen up to 3 L. She reports that she previously had an in home concentrator, however she had it removed as she uses an Inogen device slowly at this time. I did educate her that those are mainly used for portability rather than her continual oxygen supply. This may be something needs to be looked into in the outpatient setting. Additionally, when she arrived she was noted to be hypercapnic. Certainly this could be in the setting of an acute COPD exacerbation. That being said, consideration for follow-up outpatient sleep study and/or explosive ordnance handler ABG to assess possible need for NIV may be considered. As the patient has recovered at this time and is doing well without ongoing NIV needs, can discharge to home on her typical therapy otherwise. This can be managed by her outpatient pulmonary service if needed. Plan Thank you for allowing us to precipitate in the care of this pleasant patient. History of Present Illness Reason for Consultation: hypoxic, hypercap resp failure Requesting Physician: Dr. Del Castillo Attending Physician: Dora Del Castillo MD History of Present Illness Patient is an 83-year-old female with significant past medical history of COPD, chronic hypoxic respiratory failure on supplemental oxygen, hypertension, hyperlipidemia, anxiety who presented to the emergency department in the setting of acute on chronic hypoxic respiratory failure with hypercapnia. Patient notes that she had been having difficulty with breathing for the few days prior. She also reported productive cough with yellow sputum. She had no hemoptysis. No fevers or chills. She does carry a history of COPD for which she is managed by [facility]. She is currently on Trelegy, Xopenex, and as needed nebulizer therapies. She states that she uses her rescue inhaler at least daily. Her last hospitalization related to her breathing was 15 years ago at this institution. She previously followed with Dr. Alejo locally, but [facility] and [facility] Difficult to obtain history from the patient as a pertains to her pulmonary status. Allergies Allergy/AdvReac Type Severity Reaction Status Date / Time No Known Allergies Allergy Mild Verified 05/25/08 10:49 bee venom protein (honey bee) AdvReac Intermediate SWELLING Verified 05/01/24 14:54 Home Medications Medication Instructions Recorded Confirmed Type aspirin 81 mg tablet,delayed 81 mg PO DAILY ##0 05/25/08 05/01/24 History release fexofenadine-pseudoephedrine ER 1 tab PO QAM ##0 05/25/08 05/01/24 History 180 mg-240 mg tablet,ext.release 24 hr (Katie-D 24 Hour) fluticasone fur. 100 mcg-umeclid 1 inh inhalation DAILY 05/01/24 05/01/24 History 62.5 mcg-vilant 25 mcg inhalat.powder (Trelegy Ellipta) food supplemt, lactose-reduced 1 ea PO DAILY 05/01/24 05/01/24 History (Ensure oral liquid) hydrocortisone 2.5 % topical cream 1 applic topical DAILY 05/01/24 05/01/24 History levalbuterol tartrate 45 1 puff inhalation DAILY 05/01/24 05/01/24 History mcg/actuation aerosol inhaler lisinopril 10 mg tablet 10 mg PO DAILY 05/01/24 05/01/24 History rosuvastatin 20 mg tablet 20 mg PO DAILY 05/01/24 05/01/24 History Patient History Medical History HLD (hyperlipidemia) HTN (hypertension) Anxiety COPD (chronic obstructive pulmonary disease) Surgical History No pertinent past surgical history Family History Other Hypertension Social History (Updated 05/01/24 @ 16:22 by Radha Brown PA-C) Smoking Status: Former smoker Tobacco Type: Cigarettes Smoking End Date: 2007; Hx Alcohol Use: Yes Alcohol Intake Frequency: Monthly or Less Hx Substance Use: No Feels Safe at Home: Yes Review of Systems Review of Systems: A complete 10 point review of systems was reviewed with the patient with pertinent positives and negatives as per history of present illness. All else were negative. Physical Exam Physical Exam: VITAL SIGNS Vital signs and nursing notes were reviewed. GENERAL 83-year-old female appearing her stated age who is in no acute distress. Cachectic appearing. Communicates well with provider and answers questions appropriately. SKIN Without rashes or lesions. NOSE Midline and without cyanosis. MOUTH/OROPHARYNX Without perioral cyanosis. NECK Neck with FROM. LUNGS Chest wall evaluation demonstrates increased chest wall A:P diameter. Auscultation reveals delayed air entry without wheeze. CARDIAC RRR with S1/S2. No murmur, rubs, or gallops appreciated. ABDOMEN Abdominal inspection demonstrates a flat abdomen. BS normoactive all four quadrants. No tenderness, palpable masses, or ascites noted. EXTREMITIES Nail clubbing not present. No peripheral cyanosis. No pretibial edema present. +3/5 radial palpated throughout. PSYCH A&Ox3 and cooperates fully with examiner. Pt is very pleasant and interacts well with examiner. Results & Data Results & Data Vital Signs (Past 12 Hours) Vital Signs Temp Pulse Pulse Resp BP Pulse Ox O2 Del Method 05/02/24 11:11 36.4 C L 79 20 148/60 H 97 Nasal Cannula 05/02/24 08:00 Nasal Cannula 05/02/24 07:59 36.6 C 91 H 17 152/73 H 96 Nasal Cannula 05/02/24 07:29 71 19 94 05/02/24 07:24 70 19 94 BiPAP 05/02/24 04:36 86 24 96 05/02/24 04:20 36.5 C 70 17 133/64 97 BiPAP 05/02/24 00:17 74 22 96 05/02/24 00:17 70 18 96 BiPAP O2 Flow Rate FiO2 05/02/24 11:11 3 05/02/24 08:00 3 05/02/24 07:59 3 05/02/24 07:29 30 05/02/24 07:24 30 05/02/24 04:36 30 05/02/24 04:20 05/02/24 00:17 30 05/02/24 00:17 30 PG Care Time/CCT Total # of Minutes Spent Total Time Spent with Patient: Total time spent is greater than 50% in coordination of care (as documented) at patient's floor/unit and/or counseling patient: Coding Level of Care Code 43758 INT INP/OBS CARE 375MIN Diagnoses COPD with exacerbation J44.1 Acute and chronic respiratory failure with hypercapnia J96.22
--- NOTE | 2024-05-02 12:28 | CT Scan Report ---
CT ANGIOGRAM OF THE CHEST CLINICAL HISTORY: Dyspnea COMPARISON STUDY: Chest x-ray dated 05/01/2024. Chest CT dated 05/25/2008. TECHNIQUE: Following the IV administration of 118 cc of Optiray 320, CT angiogram of the chest was pe rformed from the upper abdomen to the thoracic inlet utilizing the pulmonary embolus protocol. Images are reviewed in the axial, sagittal, and coronal planes. 3-D MIPS images are created and assessed. I V contrast was administered without complication. A dose lowering technique was utilized adhering to the principles of ALARA. There is streak artifact from the left arm which could not be elevated abov e the chest. CT DOSE: 233.4 mGy.cm FINDINGS: Thyroid: Imaged portions of the thyroid gland are normal in size and attenuation. Thoracic aorta: There is atherosclerotic calcification of the thoracic area. There is mild ectasia of the ascending thoracic aorta which measures up to 3.8 cm in diameter. The remainder of the thoracic aorta is normal in caliber, and in the arch demonstrates standard 3-vessel anatomy. No dissection is seen. 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 Pulmonary vasculature: The main pulmonary arteries are dilated suggesting pulmonary artery hypertensi on. There are no filling defects identified in main, lobar, or segmental pulmonary branches to sugges t pulmonary embolus. Heart: The heart is enlarged and without pericardial effusion. The coronary arteries are densely calc ified. Lungs and pleural spaces: Evaluation of the lung parenchyma is modestly degraded by motion artifact. There is advanced emphysematous change. The trachea and central airways are clear. Subsegmental atele ctasis is noted in the lingula. There are scattered calcified granulomas. Scarring/atelectasis is not ed at the lung bases. Mediastinum: There is no mediastinal lymphadenopathy. Marla: Clear. Axillae: There is no axillary lymphadenopathy. Upper abdomen: Partially visualized upper abdominal viscera is within normal limits. Skeletal structures: The skeletal structures are osteopenic. Degenerative change and kyphoscoliosis i s noted in the thoracic spine. No lytic or blastic bony lesions are seen. IMPRESSION: 1. There is no evidence of pulmonary embolus in the main, lobar, or segmental pulmonary arteries. 2. Cardiomegaly and advanced emphysema. 3. Advanced coronary artery atherosclerosis. 4. There is no airspace consolidation or pleural effusion. 5. 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 6. Additional findings as above. ACT 112: Negative or not required by law. Electronically signed by: Kenneth Lam M.D. 05/02/2024 12:26 PM
--- NOTE | 2024-05-02 13:55 | Pharmacy Report ---
Pharmacy Glycemic Short Note 2 - Date of Service May 02, 2024 - Glycemic Short BSG Results (Last 24 hours): 05/01/24 05/02/24 05/02/24 13:30 00:17 05:35 Glucose 237 H 162 H POC Glucose 176 H OUTPATIENT ANTIDIABETIC REGIMEN: * none * HbA1c 5.9% (05/01/24) ASSESSMENT: * Barbara is an 83 YOF admitted with shortness of breath/weakness/weight loss. Pharmacy has been consulted to assist with glycemic management while inpatient. She does not have a history of diabetes, but her current A1c is suggestive of pre-diabetes. Considering her age, A1c is excellent. * She was started on high-dose IV Solumedrol 40mg Q8H, BSGs slightly elevated, Novolog initiated at a weight based stress of 2, will hold basal insulin at this time and continue to monitor. PLAN FOR INPATIENT GLYCEMIC CONTROL: * Basal insulin * Hold * Bolus insulin * NovoLog per scale ACHS or Q6hrs while NPO * Goal Range: Low 110 mg/dL - High 140 mg/dL * Correction Factor: 55 mg/dL/unit * Nutritional / Prandial insulin per carb ratio of 1 unit per 19 grams CHO consumed
[2024-05-02] MEDS: AZITHROMYCIN 250 MG in DEXTROSE 5% 250 ML IV SCH (16:12)
[2024-05-02] MEDS: BUTT PASTE (ZINC OXIDE 16%) 171 APPLN/57 GM JAR EXT PRN (21:04)
[2024-05-03 03:08] LABS: Magnesium 2.1 mg/dl (1.7-2.4)
[2024-05-03] MEDS: POLYETHYLENE (MIRALAX) 17 GM PACK PO PRN (06:25)
[2024-05-03 06:52] LABS: Calcium 8.4 mg/dl (8.6-10.3); Magnesium 2.3 mg/dl (1.7-2.4)
[2024-05-03 06:58] LABS: BUN Creatinine Ratio 32.8 (10-20); Creatinine Clr Calc Pharmacy 44.4 ml/min; Est GFR (Non-African American) 81.9 ml/min; Phosphorus 2.8 mg/dl (2.5-4.9)
[2024-05-03] MEDS: IPRATROPIUM BROMIDE NEB SOLN 0.02% 0.5MG/2.5ML VIAL NEB SCH (07:03)
[2024-05-03] MEDS: LEVALBUTEROL 1.25 MG/3 ML NEB NEB SCH (07:03)
[2024-05-03 07:19] LABS: Basophils # (auto) 0.02 K/uL (0.00-0.20); Basophils % (auto) 0.1 %; Hematocrit (blood only) 41.5 % (37.0-47.0); Hemoglobin 13.3 g/dl (12.0-16.0); Immature Granulocytes # (auto) 0.45 K/uL (0.01-0.20); Immature Granulocytes % (auto) 2.5 %; Lymphocytes # (auto) 0.88 K/uL (1.20-3.40); Mean Corpuscular Hemoglobin 30.6 pg (25.0-34.0); Mean Corpuscular Volume 95.6 fL (80.0-100.0); Mean Platelet Volume 10.7 fL (9.4-12.4); Monocytes # (auto) 0.48 K/uL (0.11-0.59); Monocytes % (auto) 2.7 %; Neutrophils # (auto) 15.83 K/uL (1.40-6.50); Neutrophils % (auto) 89.7 %; Platelet Count 170 K/uL (130-400); RDW Coefficient of Variation 13.2 % (11.5-14.5); RDW Standard Deviation 46.6 fL (36.4-46.3); Red Blood Count 4.34 M/uL (4.20-5.40); White Blood Count 17.66 K/ul (4.8-10.8)
[2024-05-03] MEDS: predniSONE 20 MG TAB PO SCH (09:37)
[2024-05-03] MEDS ORDERED: LORazepam 2 MG/1 ML VIAL IV PRN (13:56)
[2024-05-03] MEDS ORDERED: LORazepam 0.5 MG TAB PO PRN (13:57)
--- NOTE | 2024-05-03 13:58 | Hospitalist Progress Note ---
Date of Service May 03, 2024 Assessment & Plan (1) Acute respiratory acidosis: (2) Acute exacerbation of chronic obstructive pulmonary disease: (3) Acute and chronic respiratory failure with hypercapnia: (4) Elevated troponin: (5) Hyperglycemia: (6) HTN (hypertension): (7) HLD (hyperlipidemia): (8) Anxiety: Plan This is an 83-year-old female with PMH of COPD, chronic hypoxic respiratory failure on 2 L nasal cannula O2, hypertension, hyperlipidemia, anxiety and other medical problems listed below who presents with progressive shortness of breath over the past 3 to 4 days and was found to have a COPD exacerbation. Acute respiratory acidosis Acute exacerbation of chronic obstructive pulmonary disease Acute and chronic respiratory failure with hypercapnia Possible sepsis Patient tachypneic on arrival, tachycardic, VBG pH 7.1 with pCO2 in 90s Afebrile, WBC 15.68K resp viral panel negative Chest XR with no acute process, noting emphysema CTA chest with no PE, but notes advanced emphysema UA unremarkable Blood Cx NGTD Lactate elevated at 2.4, downtrended Meeting SIRs criteria but no clear infection Bipap initiated in ED with improvement, also received albuterol breathing tx, Solu-medrol 60mg IV and Azithromycin in ED Continue bipap, IV Solu-medrol 40mg Q8H, Duonebs QIDR, Azithromycin course, Mucinex, Mucomyst, incentive spirometry Remote hx of following with [place] pul Pulmonology consulted, appreciate recs Saccular aneurysm Noted on CTA chest, "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 Continue lisinopril HLD (hyperlipidemia) Continue statin Anxiety Previously on SSRI but discontinued weeks ago DVT Ppx: SQ heparin Code status: FULL PCP: Marti Dispo: PT/OT ordered for further recs Admission and Anticipated Discharge Date Admission Date: May 01, 2024 Subjective pt was seen with at bedside. States she feels like she is currently back to her baseline. Notes she uses 2L at home. Review of Systems Review of Systems: All systems reviewed & are unremarkable except as noted in Subjective Physical Exam Physical Exam: General: Alert, oriented. mild distress, cachectic Psych: Appropriate mood and affect HEENT: NC/AT CV: RRR Resp: Breath sounds decreased bilaterally, no increased effort of breathing. Abdomen: Soft Extremities: No edema in lower extremities bilaterally. Results & Data Results & Data Vital Signs (Past 12 Hours) Vital Signs Temp Pulse Pulse Resp BP Pulse Ox O2 Del Method 05/03/24 12:11 36.8 C 87 18 138/71 95 Nasal Cannula 05/03/24 11:10 81 18 95 Nasal Cannula 05/03/24 07:45 36.7 C 77 20 149/79 H 96 Nasal Cannula 05/03/24 07:04 67 18 98 Nasal Cannula 05/03/24 03:32 71 05/03/24 02:50 36 C L 60 17 131/68 97 BiPAP O2 Flow Rate FiO2 05/03/24 12:11 2 05/03/24 11:10 2 05/03/24 07:45 2 05/03/24 07:04 3 05/03/24 03:32 05/03/24 02:50 30 Diagnostic Findings Chest X-Ray 05/01/24 13:46 XR chest 1V portable HISTORY: Dyspnea COMPARISON: Chest 05/28/2008. FINDINGS: No pneumothorax. No pleural effusions. Hyperexpanded lungs with emphysema again noted. No focal lung consolidations to suggest a pneumonia. No evidence for bone edema. The heart is normal in size. Calcifications within the aortic knob. No acute fractures. IMPRESSION: 1. No acute process within the chest. 2. Emphysema. ACT 112: Negative or not required by law. Electronically signed by: Noe Lloyd M.D. 05/01/2024 3:22 PM Chest CTA 05/02/24 09:09 CT ANGIOGRAM OF THE CHEST CLINICAL HISTORY: Dyspnea COMPARISON STUDY: Chest x-ray dated 05/01/2024. Chest CT dated 05/25/2008. TECHNIQUE: Following the IV administration of 118 cc of Optiray 320, CT angiogram of the chest was performed from the upper abdomen to the thoracic inlet utilizing the pulmonary embolus protocol. Images are reviewed in the axial, sagittal, and coronal planes. 3-D MIPS images are created and assessed. IV contrast was administered without complication. A dose lowering technique was utilized adhering to the principles of ALARA. There is streak artifact from the left arm which could not be elevated above the chest. CT DOSE: 233.4 mGy.cm FINDINGS: Thyroid: Imaged portions of the thyroid gland are normal in size and attenuation. Thoracic aorta: There is atherosclerotic calcification of the thoracic area. There is mild ectasia of the ascending thoracic aorta which measures up to 3.8 cm in diameter. The remainder of the thoracic aorta is normal in caliber, and in the arch demonstrates standard 3-vessel anatomy. No dissection is seen. 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 Pulmonary vasculature: The main pulmonary arteries are dilated suggesting pulmonary artery hypertension. There are no filling defects identified in main, lobar, or segmental pulmonary branches to suggest pulmonary embolus. Heart: The heart is enlarged and without pericardial effusion. The coronary arteries are densely calcified. Lungs and pleural spaces: Evaluation of the lung parenchyma is modestly degraded by motion artifact. There is advanced emphysematous change. The trachea and central airways are clear. Subsegmental atelectasis is noted in the lingula. There are scattered calcified granulomas. Scarring/atelectasis is noted at the lung bases. Mediastinum: There is no mediastinal lymphadenopathy. Marla: Clear. Axillae: There is no axillary lymphadenopathy. Upper abdomen: Partially visualized upper abdominal viscera is within normal limits. Skeletal structures: The skeletal structures are osteopenic. Degenerative change and kyphoscoliosis is noted in the thoracic spine. No lytic or blastic bony lesions are seen. IMPRESSION: 1. There is no evidence of pulmonary embolus in the main, lobar, or segmental pulmonary arteries. 2. Cardiomegaly and advanced emphysema. 3. Advanced coronary artery atherosclerosis. 4. There is no airspace consolidation or pleural effusion. 5. 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 6. Additional findings as above. ACT 112: Negative or not required by law. Electronically signed by: Kenneth Lam M.D. 05/02/2024 12:26 PM
[2024-05-04 06:30] LABS: Basophils # (auto) 0.02 K/uL (0.00-0.20); Basophils % (auto) 0.1 %; Hematocrit (blood only) 41.5 % (37.0-47.0); Hemoglobin 13.2 g/dl (12.0-16.0); Immature Granulocytes # (auto) 0.13 K/uL (0.01-0.20); Immature Granulocytes % (auto) 0.8 %; Lymphocytes # (auto) 1.72 K/uL (1.20-3.40); Mean Corpuscular Hemoglobin 30.2 pg (25.0-34.0); Mean Corpuscular Hgb Conc 31.8 g/dL (32.0-36.0); Mean Platelet Volume 10.8 fL (9.4-12.4); Monocytes # (auto) 1.11 K/uL (0.11-0.59); Monocytes % (auto) 7.1 %; Platelet Count 169 K/uL (130-400); RDW Coefficient of Variation 13.6 % (11.5-14.5); RDW Standard Deviation 47.7 fL (36.4-46.3); Red Blood Count 4.37 M/uL (4.20-5.40); White Blood Count 15.68 K/ul (4.8-10.8)
[2024-05-04 07:10] LABS: BUN Creatinine Ratio 32.4 (10-20); Calcium 8.5 mg/dl (8.6-10.3); Creatinine Clr Calc Pharmacy 41.9 ml/min; Est GFR (African American) 93.1 ml/min; Est GFR (Non-African American) 80.3 ml/min; Magnesium 2.4 mg/dl (1.7-2.4); Phosphorus 2.2 mg/dl (2.5-4.9); Potassium 4.4 mmol/L (3.5-5.1)
--- NOTE | 2024-05-04 14:18 | Pharmacy Report ---
Pharmacy Glycemic Short Note 2 - Date of Service May 04, 2024 - Glycemic Short BSG Results (Last 24 hours): 05/03/24 05/03/24 05/04/24 17:21 20:20 05:37 Glucose 115 H POC Glucose 176 H 205 H 05/04/24 05/04/24 07:50 11:39 Glucose POC Glucose 98 165 H OUTPATIENT ANTIDIABETIC REGIMEN: * none * HbA1c 5.9% (05/01/24) ASSESSMENT: 05/04: * Patient received 14 units of insulin on 05/03 * Patient's fasting BSG was acceptable this AM, will continue to hold basal insulin. * Patient has been changed from Solumedrol to prednisone 40 mg daily. Given high BSGs throughout the day on 05/03 and use of steroids, parameters were tightened with a focus on carb ratio. Given patient's BSG dropping overnight from HS dose, correction factor was loosened to prevent hypoglycemia. 05/02: * Barbara is an 83 YOF admitted with shortness of breath/weakness/weight loss. Pharmacy has been consulted to assist with glycemic management while inpatient. She does not have a history of diabetes, but her current A1c is suggestive of pre-diabetes. Considering her age, A1c is excellent. * She was started on high-dose IV Solumedrol 40mg Q8H, BSGs slightly elevated, Novolog initiated at a weight based stress of 2, will hold basal insulin at this time and continue to monitor. PLAN FOR INPATIENT GLYCEMIC CONTROL: * Basal insulin * Hold * Bolus insulin * NovoLog per scale ACHS or Q6hrs while NPO * Goal Range: Low 110 mg/dL - High 140 mg/dL * Correction Factor: 55 mg/dL/unit * Nutritional / Prandial insulin per carb ratio of 1 unit per 15 grams CHO consumed
--- NOTE | 2024-05-04 15:42 | Electrocardiogram Report ---
Test Reason : Blood Pressure : */* mmHG Vent. Rate : 115 BPM Atrial Rate : 115 BPM P-R Int : 120 ms QRS Dur : 94 ms QT Int : 340 ms P-R-T Axes : 85 82 236 degrees QTcB Int : 470 ms Sinus tachycardia Left ventricular hypertrophy with repolarization abnormality ( Bradford product ) with QRS widening a nd strain pattern Right axis deviation Abnormal ECG When compared with ECG of 28-May-2008 13:19, LVH and QRS widening with strain pattern is now present Confirmed by Idania Holden (Jessica) on 05/01/2024 7:23:06 PM Referred By: REFERRED SELF Confirmed By: Idania Holden
--- NOTE | 2024-05-04 15:49 | Hospitalist Progress Note ---
Date of Service May 04, 2024 Assessment & Plan (1) Acute respiratory acidosis: (2) Acute exacerbation of chronic obstructive pulmonary disease: (3) Acute and chronic respiratory failure with hypercapnia: (4) Elevated troponin: (5) Hyperglycemia: (6) HTN (hypertension): (7) HLD (hyperlipidemia): (8) Anxiety: Plan This is an 83-year-old female with PMH of COPD, chronic hypoxic respiratory failure on 2 L nasal cannula O2, hypertension, hyperlipidemia, anxiety and other medical problems listed below who presents with progressive shortness of breath and was found to have a COPD exacerbation. #Acute exacerbation of chronic obstructive pulmonary disease #Acute and chronic respiratory failure with hypercapnia Patient tachypneic on arrival, tachycardic, VBG pH 7.1 with pCO2 in 90s Bipap initiated in ED with improvement, also received albuterol breathing tx, Solu-medrol 60mg IV and Azithromycin in ED Afebrile, WBC 15.68K resp viral panel negative Chest XR with no acute process, noting emphysema CTA chest with no PE, but notes advanced emphysema UA unremarkable Blood Cx NGTD Remote hx of following with [place] pulm Pulmonology consulted, appreciate recs Continue perforomist and budesonide Continue Incruse while inpatient Continue course of oral steroids Transition to PO azithromycin Transition levalbuterol to PRN #Abnormal EKG #Elevated troponin Initial trop 29.6 -> 49.1 in setting of sinus tachycardia and hypoxia Likely demand, doubt ACS ECHO ordered for eval #Prediabetes #Hyperglycemia BSG 237, no known DM II hx, not on home meds hgba1c of 5.9,, add SSI #HTN (hypertension) Continue lisinopril #HLD (hyperlipidemia) Continue statin #Anxiety Previously on SSRI but discontinued weeks ago behavioral liaison to aid in coping mechanisms #Saccular aneurysm Noted on CTA chest, "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" PCP/outpt follow up DVT Ppx: SQ heparin Code status: FULL PCP: Marti Dispo: PT/OT: recommends rehab Admission and Anticipated Discharge Date Admission Date: May 01, 2024 Subjective Anxious at bedside chair Initially declined rehab, but reports not feeling well enough overall to go home Reports multiple chronic concerns as well as shortness of breath, however, able to speak multiple complete sentences without taking a breath--encouraged patient to stop and inhale prior to continuing Denies chest pain at time of exam, but reports palpitations on exertion when trying to catch her breath Physical Exam Constitutional: WD/WN, vitals as above Respiratory: diminished bilaterally however no wheezing noted Results & Data Results & Data Vital Signs (Past 12 Hours) Vital Signs Temp Pulse Pulse Pulse Pulse Pulse Resp 05/04/24 15:22 110 H 20 05/04/24 13:07 05/04/24 12:36 05/04/24 11:36 36.9 C 94 H 20 05/04/24 11:09 118 H 92 H 83 05/04/24 11:08 118 H 26 H 05/04/24 08:00 52 L 05/04/24 07:52 36.8 C 75 21 05/04/24 07:34 68 16 Resp Resp Resp BP Pulse Ox Pulse Ox Pulse Ox 05/04/24 15:22 96 05/04/24 13:07 90 05/04/24 12:36 05/04/24 11:36 171/71 H 94 05/04/24 11:09 26 H 19 19 90 05/04/24 11:08 91 05/04/24 08:00 05/04/24 07:52 137/84 96 05/04/24 07:34 96 Pulse Ox Pulse Ox O2 Del Method O2 Flow Rate O2 Flow Rate O2 Flow Rate O2 Flow Rate 05/04/24 15:22 Nasal Cannula 2 05/04/24 13:07 3 05/04/24 12:36 Nasal Cannula 2 05/04/24 11:36 Nasal Cannula 2 05/04/24 11:09 91 87 L 3 2 05/04/24 11:08 Nasal Cannula 3 05/04/24 08:00 05/04/24 07:52 Nasal Cannula 3 05/04/24 07:34 Nasal Cannula 2 Laboratory Results Short CBC 05/04/24 Range/Units 05:37 WBC 15.68 H (4.8-10.8) K/ul Hgb 13.2 (12.0-16.0) g/dl Hct 41.5 (37.0-47.0) % Plt Count 169 (130-400) K/uL BMP 05/04/24 05:37 Sodium 142 Potassium 4.4 Chloride 108 H Carbon Dioxide 31 BUN 22 Creatinine 0.68 Glucose 115 H Calcium 8.5 L Medications Administered Home Medications Medication Instructions Recorded Confirmed Last Taken aspirin 81 mg tablet,delayed 81 mg PO DAILY ##0 05/25/08 05/01/24 Unknown release fexofenadine-pseudoephedrine ER 1 tab PO QAM ##0 05/25/08 05/01/24 Unknown 180 mg-240 mg tablet,ext.release 24 hr (Katie-D 24 Hour) fluticasone fur. 100 mcg-umeclid 1 inh inhalation DAILY 05/01/24 05/01/24 Unknown 62.5 mcg-vilant 25 mcg inhalat.powder (Trelegy Ellipta) food supplemt, lactose-reduced 1 ea PO DAILY 05/01/24 05/01/24 Unknown (Ensure oral liquid) hydrocortisone 2.5 % topical cream 1 applic topical DAILY 05/01/24 05/01/24 Unknown levalbuterol tartrate 45 1 puff inhalation DAILY 05/01/24 05/01/24 Unknown mcg/actuation aerosol inhaler lisinopril 10 mg tablet 10 mg PO DAILY 05/01/24 05/01/24 Unknown rosuvastatin 20 mg tablet 20 mg PO DAILY 05/01/24 05/01/24 Unknown Active Medications Generic Name Dose Route Start Last Admin Trade Name Freq PRN Reason Stop Dose Admin Acetylcysteine 5 ml 05/01/24 19:00 05/04/24 07:31 Acetylcysteine 20% Inhal Soln 4ml Dispensed By Resp. INH 05/31/24 18:59 5 ml Q12R NALDO Administration Aspirin 81 mg 05/02/24 09:00 05/04/24 08:50 Aspirin 81 Mg Ectab PO 06/01/24 08:59 81 mg DAILY NALDO Administration Budesonide 0.5 mg 05/02/24 07:00 05/04/24 07:31 Budesonide 0.5 Mg/2 Ml Vial (Pulmicort) NEB 06/01/24 06:59 0.5 mg BIDR NALDO Administration Formoterol Fumarate 20 mcg 05/01/24 21:00 05/04/24 07:31 Formoterol 20 Mcg/2 Ml Vial NEB 05/31/24 20:59 20 mcg BID NALDO Administration Guaifenesin 600 mg 05/01/24 21:00 05/04/24 08:50 Guaifenesin 600 Mg Tabcr PO 05/31/24 20:59 600 mg Q12 NALDO Administration Azithromycin 250 mg/ Dextrose 252.5 mls @ 125 mls/hr 05/02/24 14:00 05/04/24 15:35 IV 05/08/24 13:59 125 mls/hr Q24H NALDO Administration Insulin Aspart 0 units 05/01/24 23:30 05/04/24 12:45 Insulin Aspart Per Unit Charge SC 05/31/24 23:29 3 units ACHS NALDO Administration Ipratropium Kemp 0.5 mg 05/03/24 07:00 05/04/24 15:22 Ipratropium Kemp Neb Soln 0.02% 0.5mg/2.5ml Vial NEB 06/02/24 06:59 0.5 mg QIDR NALDO Administration Lisinopril 10 mg 05/02/24 09:00 05/04/24 08:50 Lisinopril 10 Mg Tab PO 06/01/24 08:59 10 mg DAILY NALDO Administration Petrolatum 1 appln 05/02/24 15:35 05/03/24 20:39 Butt Paste (Zinc Oxide 16%) 171 Appln/57 Gm Jar EXT 06/01/24 20:59 1 appln TID PRN Administration excoriated skin Polyethylene Glycol 17 gm 05/01/24 18:43 05/03/24 06:25 Polyethylene (Miralax) 17 Gm Pack PO 05/31/24 18:42 17 gm DAILY PRN Administration Constipation Prednisone 40 mg 05/03/24 09:00 05/04/24 08:50 Prednisone 20 Mg Tab PO 05/08/24 08:59 40 mg DAILY NALDO Administration Rosuvastatin Calcium 20 mg 05/02/24 09:00 05/04/24 08:50 Rosuvastatin Calcium 20 Mg Tab PO 06/01/24 08:59 20 mg DAILY NALDO Administration Thiamine HCl 100 mg 05/01/24 21:00 05/04/24 08:50 Thiamine Hcl 100 Mg Tab PO 05/08/24 20:59 100 mg BID NALDO Administration
[2024-05-04] MEDS: POT PHOSPHATE MONOBASIC W/ SOD TAB PO SCH (18:03)
--- NOTE | 2024-05-05 05:33 | Electrocardiogram Report ---
Test Reason : Blood Pressure : */* mmHG Vent. Rate : 72 BPM Atrial Rate : 72 BPM P-R Int : 126 ms QRS Dur : 118 ms QT Int : 402 ms P-R-T Axes : 73 -15 226 degrees QTcB Int : 440 ms Normal sinus rhythm Septal infarct , age undetermined Abnormal ECG When compared with ECG of 01-May-2024 13:58, Vent. rate has decreased by 43 bpm QRS duration has increased ST less depressed in Inferior leads Confirmed by Lobito Beavers ([id number]) on 05/05/2024 5:32:52 AM Referred By: REFERRED SELF Confirmed By: Lobito Beavers
[2024-05-05 07:26] LABS: Hematocrit (blood only) 41.3 % (37.0-47.0); Hemoglobin 13.6 g/dl (12.0-16.0); Mean Corpuscular Hemoglobin 30.5 pg (25.0-34.0); Mean Corpuscular Hgb Conc 32.9 g/dL (32.0-36.0); Mean Corpuscular Volume 92.6 fL (80.0-100.0); Mean Platelet Volume 10.5 fL (9.4-12.4); Platelet Count 156 K/uL (130-400); RDW Coefficient of Variation 13.3 % (11.5-14.5); RDW Standard Deviation 45.2 fL (36.4-46.3); Red Blood Count 4.46 M/uL (4.20-5.40); White Blood Count 14.43 K/ul (4.8-10.8)
[2024-05-05 08:02] LABS: BUN Creatinine Ratio 35.1 (10-20); Calcium 8.4 mg/dl (8.6-10.3); Creatinine Clr Calc Pharmacy 49.6 ml/min; Est GFR (African American) 98.7 ml/min; Est GFR (Non-African American) 85.1 ml/min; Magnesium 2.2 mg/dl (1.7-2.4); Phosphorus 2.7 mg/dl (2.5-4.9); Potassium 3.8 mmol/L (3.5-5.1)
[2024-05-05] MEDS: AZITHROMYCIN 250 MG TAB PO SCH (09:11)
[2024-05-05] MEDS: THIAMINE HCL 100 MG TAB PO SCH (09:13)
[2024-05-05] MEDS: IPRATROPIUM BROMIDE NEB SOLN 0.02% 0.5MG/2.5ML VIAL NEB PRN (12:41)
[2024-05-05] MEDS: LEVALBUTEROL 1.25 MG/3 ML NEB NEB PRN (12:42)
--- NOTE | 2024-05-05 13:08 | Discharge Summary ---
Discharge Summary Date of Service May 05, 2024 Principal Dx & Hospital Course #1 = Principal Diagnosis (1) Acute respiratory acidosis: (2) Acute exacerbation of chronic obstructive pulmonary disease: (3) Acute and chronic respiratory failure with hypercapnia: (4) Elevated troponin: (5) Hyperglycemia: (6) HTN (hypertension): (7) HLD (hyperlipidemia): (8) Anxiety: Plan This is an 83-year-old female with PMH of COPD, chronic hypoxic respiratory failure on 2 L nasal cannula O2, hypertension, hyperlipidemia, anxiety and other medical problems listed below who presents with progressive shortness of breath and was found to have a COPD exacerbation. Patient required Bipap and IV steroids. Pulm consulted who felt patient is likely endstage paged upon ct findings, pulm cachexia and o2 use. Patient improved and back at baseline. Patient's course complicated by anxiety. Patient is able to speak in multiple full sentences without inhalation, then reports palpitations and further exacerbates symptoms. No events noted on telemetry. Encouraged patient to consider rehab, but declined for home health services. Patient encouraged to follow up with Pulm, but reports displeasure with most label pinker--gave information for patient to contact for follow up. PCP follow up arranged. Patient denied any further questions. #Acute exacerbation of chronic obstructive pulmonary disease #Acute and chronic respiratory failure with hypercapnia Patient tachypneic on arrival, tachycardic, VBG pH 7.1 with pCO2 in 90s Bipap initiated in ED with improvement, also received albuterol breathing tx, Solu-medrol 60mg IV and Azithromycin in ED Afebrile, WBC 15.68K resp viral panel negative Chest XR with no acute process, noting emphysema CTA chest with no PE, but notes advanced emphysema UA unremarkable Blood Cx NGTD Remote hx of following with [facility] Pulmonology consulted, appreciate recs -encouraged op Follow Transition to PO azithromycin, one day left of course Resume home inhalers Prednisone taper recommended #Abnormal EKG #Elevated troponin Initial trop 29.6 -> 49.1 in setting of sinus tachycardia and hypoxia Likely demand, doubt ACS ECHO stable EF, no other acute abnormalities, Follow up OP #Prediabetes #Hyperglycemia BSG 237, no known DM II hx, not on home meds hgba1c of 5.9 Stable #HTN (hypertension) Continue lisinopril #HLD (hyperlipidemia) Continue statin #Anxiety Previously on SSRI but discontinued weeks ago behavioral liaison to aid in coping mechanisms -declined therapy or other medications to aid in coping #Saccular aneurysm Noted on CTA chest, "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" PCP/outpt follow up Notes For Next Care Provider Prescription for home o2 ordered Inogen not "working well" per patient Consider Palliative OP consult for endstage COPD Medication Changes From Visit Azithromycin 250mg tablet, 1 dose left to take tomorrow morning 05/06 Prednisone 10mg tablets: Take 4 tablets (40mg) tomorrow 05/06, then take 2 tablets (20mg) for three days, then take 1 tablet (10mg) for three days Admission HPI Per Admitting Provider This is an 83-year-old female with PMH of COPD, chronic hypoxic respiratory failure on 2 L nasal cannula O2, hypertension, hyperlipidemia, anxiety and other medical problems listed below who presents with progressive shortness of breath over the past 3 to 4 days. Associated with productive cough with yellow sputum. Does have some pleuritic chest pain associated with it. No fever, chills, sore throat, nausea, vomiting, abdominal pain, dysuria. Struggles with chronic constipation, last bowel movement 2 days ago[address] Follow[address] with Dr. Kidd for primary care. Admission Exam Per Admitting Provider GENERAL: Alert and oriented x3. NAD, on BPAP. Appears old/frail/weak. HEENT: No pallor, no icterus. Pupils equal, round and reactive to light. Oral mucosa moist. NECK: No JVD, no neck masses. HEART: S1 and S2 heard. Regular rate and rhythm. TAchy No murmur, no gallop. RESPIRATORY SYSTEM: Normal AP diameter. No accessory muscle use. No wheezing, no crackles. Severely decreased breath sound b/l. ABDOMEN: Soft, bowel sounds present, nontender, no distention. CENTRAL NERVOUS SYSTEM: No facial droop. Speech is clear. Obeys simple commands. Moves extremities. EXTREMITIES: No edema, no erythema seen. Discharge Exam Constitutional WD/WN, vitals as above thin cachectic Respiratory diminshed, however, able to converse without breathlessness Cardiovascular RRR, no murmur, no edema Updated Medication List Medication Instructions Recorded Confirmed Type aspirin 81 mg tablet,delayed 81 mg PO DAILY ##0 05/25/08 05/01/24 History release fexofenadine-pseudoephedrine ER 1 tab PO QAM ##0 05/25/08 05/01/24 History 180 mg-240 mg tablet,ext.release 24 hr (Katie-D 24 Hour) fluticasone fur. 100 mcg-umeclid 1 inh inhalation DAILY 05/01/24 05/01/24 History 62.5 mcg-vilant 25 mcg inhalat.powder (Trelegy Ellipta) food supplemt, lactose-reduced 1 ea PO DAILY 05/01/24 05/01/24 History (Ensure oral liquid) hydrocortisone 2.5 % topical cream 1 applic topical DAILY 05/01/24 05/01/24 History levalbuterol tartrate 45 1 puff inhalation DAILY 05/01/24 05/01/24 History mcg/actuation aerosol inhaler lisinopril 10 mg tablet 10 mg PO DAILY 05/01/24 05/01/24 History rosuvastatin 20 mg tablet 20 mg PO DAILY 05/01/24 05/01/24 History azithromycin 250 mg tablet 250 mg PO QAM #1 tab 05/05/24 Rx guaifenesin 600 mg tablet, 600 mg PO Q12 #60 tabs 05/05/24 Rx extended release 12 hr (Mucinex) prednisone 10 mg tablet See Rx Instructions .Route 05/05/24 Rx .COMPLEX #13 tabs Hospital Stay Data Consultations 05/01/24 14:47 ED Decision to Admit Stat 05/02/24 11:25 Consult Pulmonology Routine 05/04/24 15:59 Consult Behavioral Health Liaison Routine Diagnostic Imagining Performed 05/02/24 09:09 CT angio chest PE protocol Urgent Pending Results Patient Have Any Pending Studies at Discharge: No Discharge Instructions Given to Patient (Per Discharging Provider) You were admitted for a severe COPD exacerbation. You were treated with steriods and antibiotics You will need to continue the following Azithromycin 250mg tablet, 1 dose left to take tomorrow morning 05/06 Prednisone 10mg tablets: Take 4 tablets (40mg) tomorrow 05/06, then take 2 tablets (20mg) for three days, then take 1 tablet (10mg) for three days You can continue mucinex two times a day to help keep mucus thin. Please resume your home medications a previously prescribed. Total Time Total Time Spent Total Time Spent (In Minutes): 45
--- NOTE | 2024-05-09 14:02 | Coding Query ---
CODING QUERY To promote full compliance with coding requirements relating to patient care, provider participation is requested in all cases of electrical installer uncertainty. Please assist us with the question(s) below: Clinical Indicators: ED Note: * 115 bpm sinus tachycardia * Leukocytosis of 15.6. Unclear if this is reactive but do not again see an obvious pneumonia. * lactate elevation of 2.4 * significant hypercarbia of 91 with a pH of 7.1 H&P: * Vitals: Temp - 36.8; Pulse - 96; Resp - 19; BP - 109/53 * Acute and chronic respiratory failure with hypercapnia * Acute respiratory acidosis * Afebrile, WBC 15.68K, procal 0.03, resp viral panel negative * Meeting SIRs criteria but no clear infection * Acute exacerbation of COPD likely secondary to viral bronchitis * Severe sepsis in the setting of likely viral bronchitis Coding Question(s): Based on the above clinical indicators, are you able to clarify if severe sepsis was: (x ) Ruled in [severe sepsis was documented in admitting note by myself] ( ) Ruled out ( ) Other (please specify): ( ) Unable to determine. Thank you Lalita Sepulveda Principal Diagnosis: "that condition established after study, to be chiefly responsible for occasioning the admission of the patient to the hospital for care." Co-Existing Principal Diagnosis: "when two or more diagnoses equally meet the criteria for principal diagnosis as determined by the circumstances of admission, diagnostic work up, and/or therapy provided, and the Alphabetic Index, Tabular List, or another coding guideline does not provide sequencing direction, any one of the diagnoses may be sequenced first." "When the physician has documented what appears to be a current diagnosis in the body of the record, but has not included the diagnosis in the final diagnostic statement, the physician should be asked whether the diagnosis should be added." (Source [facility] 2 QTR90. p3-4) JOSÉ MIGUEL
== END 2024-05-05 14:47 | disposition home health service (06) | DRG 871 ==
LOC: ED 13:24 → 4W 15:28 → SUATTDRO 15:28 → 4W 17:51

== ENCOUNTER 2025-07-18 13:47 | Inpatient (IN) ==
--- NOTE | 2025-07-18 14:08 | Emergency Department Note ---
Impression & Plan COPD with exacerbation Plan for hospitalization for COPD, troponin elevation ED Provider Note NAME: GALA BARRETT AGE: 84 SEX: F ARRIVES VIA: Ambulance INFORMANT: [Patient][, ] ED PROVIDER(S): Emile Bui MD CHIEF COMPLAINT: Shortness of breath PLAN: Disposition: Hospitalized Condition: [Good] Outpatient prescription management: [none] Referral: [] MEDICAL DECISION MAKING: Patient with shortness of breath that she attributes more to anxiety and being out of the house, she does have chronic ongoing dyspnea. She was given Solu- Medrol prehospital, DuoNebs and she is at her baseline oxygenation although she appears somewhat dyspneic. Will check a VBG, lab work, EKG shows some chronic LVH. Plan to reassess after medications, oral lorazepam. Patient with an elevated troponin, has trended up. Will continue to trend, will give aspirin will hold off on heparinization for now. Patient at her baseline oxygenation. Plan to do CTA as well to rule out pulmonary embolism. Triage Nursing notes reviewed and agree them. [Additional history obtained from] [] [Prior medical records reviewed] [] Vital Signs: reviewed and remarkable for [no significant abnormalities] Differential diagnosis: COPD, acute coronary syndrome, pulmonary embolism, pneumonia. ER treatment provided: Given Ativan, breathing treatment, was given Solu-Medrol prehospital, 145 mg Laboratory studies: [See below] Troponin with positive delta, minimal leukocytosis. Imaging studies: [See below] [] Consultation(s): [none] HPI: Patient is a 84-year-old with history of COPD, presents to the emergency department with shortness of breath. 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 She was then referred to the emergency department for evaluation. She states this feels like her anxiety. She has tried medication in the past and none of them have been very helpful. She does have a mild cough which is not atypical for her. Denies any fevers, denies pain, specifically no chest pain or lower extremity pain or swelling. ROS: See above HPI for pertinent positives & negatives. A total of [10] systems reviewed and were otherwise negative. PAST MEDICAL HISTORY:[See Below] PAST SURGICAL HISTORY:[See Below] FAMILY HISTORY:[See Below] SOCIAL HISTORY:[See Below] HOME MEDICATIONS:[See Below] ALLERGIES:[See Below] VITALS:[See Below] PHYSICAL EXAMINATION: Gen: No acute distress, generally well appearing Eyes: PERRL, no redness or injection, EOMI Neck: Supple, normal ROM CV: S1, S2, No murmurs, no lower extremity edema Pulm: Decreased air entry bilaterally, mild tachypnea, slight increased work of breathing but able to speak in full sentences. GI: Abd soft, nontender, normal bowel sounds, no distension : No CVA tenderness, no suprapubic abdominal tenderness or distension Neuro: No acute focal neuro deficits, normal strength and sensation Skin: No rashes, wounds, or erythema. ED COURSE: Times/Reassessments: Patient reassessed, she is feeling markedly improved, Ativan seem to help and she attributes her symptoms to anxiety. She does have significant COPD history, chest x-ray consistent with emphysema but no active pneumonia, blood work is reassuring. Plan to treat with a course of steroids, but if troponin remains flat, likely could be discharged home. We also do an ambulatory trial to assess for work of breathing. 1645: Patient reassessed, she feels like her breathing is improved. However her troponin did bump from 30-62. I suspect that the troponin elevation is due to some tachycardia that she had prehospital and some hypoxia. Her EKG shows a slight change in V6, but this may be positional. We are repeating EKG now. She denied chest pain on arrival and continues to deny any chest pain. When she was admitted 1 year ago, had a similar troponin elevation that was attributed to her COPD. Emile Bui MD Past Med/Surg History Problem List (Updated 07/18/25 @ 18:52 by Kenney Gould MD) Severe malnutrition COPD with exacerbation (Acute) Medical History HLD (hyperlipidemia) HTN (hypertension) Anxiety COPD (chronic obstructive pulmonary disease) Surgical History No pertinent past surgical history Family History Other Hypertension Social History (Updated 05/01/24 @ 16:22 by Radha Brown PA-C) Smoking Status: Former smoker Tobacco Type: Cigarettes Cigarettes Per Day: 2-3; Hx Alcohol Use: Yes Alcohol type: wine Alcohol Intake Frequency: Monthly or Less Hx Substance Use: No Preferred Language: Dominican Communication Ability: Effective Dial Printer Required: No Beliefs That Will Affect Care: None Current Living Situation: Spouse Other Information That Helps Us Care for You: No Feels Safe at Home: Yes Assistive Devices: Glasses and Oxygen - Continuous Allergies Allergies Allergy/AdvReac Type Severity Reaction Status Date / Time bee venom protein (honey bee) Allergy Intermediate EXTRA Verified 07/18/25 16:33 SWELLING AT SITES Home Meds Home Medications Medication Instructions Recorded Confirmed fluticasone fur. 100 mcg-umeclid 1 inh inhalation DAILY 05/01/24 07/18/25 62.5 mcg-vilant 25 mcg inhalat.powder (Trelegy Ellipta) levalbuterol tartrate 45 1 puff inhalation DAILY PRN 05/01/24 07/18/25 mcg/actuation aerosol inhaler Shortness Of Breath Or Wheezing rosuvastatin 20 mg tablet 20 mg PO HS 05/01/24 07/18/25 aspirin 81 mg chewable tablet 81 mg PO DAILY PRN CHEST 07/18/25 07/18/25 PAIN/PALPATATIONS cholecalciferol (vitamin D3) 25 25 mcg PO DAILY 07/18/25 07/18/25 mcg (1,000 unit) capsule (Vitamin D3) ipratropium 0.5 mg-albuterol 3 mg 3 ml inhalation DIRECTED PRN 07/18/25 07/18/25 (2.5 mg base)/3 mL nebulization Shortness Of Breath Or Wheezing soln lisinopril 5 mg tablet 5 mg PO DAILY 07/18/25 07/18/25 montelukast 10 mg tablet 10 mg PO DAILY PRN Congestion 07/18/25 07/18/25 nitroglycerin 0.4 mg sublingual 0.4 mg sublingual DIRECTED PRN 07/18/25 07/18/25 tablet Chest Pain Results & Data (ED) Vital Signs Vital Signs - 24 hr 07/18/25 13:48 07/18/25 14:20 07/18/25 14:22 Temperature 36.9 C Temperature Source Oral Pulse Rate 80 Pulse Rate from SpO2 Sensor Respiratory Rate 30 H Respiratory Effort / Characteristics Short of Breath Short of Breath Blood Pressure 154/95 H Blood Pressure Mean 114 Blood Pressure Position Semi-fowlers Pulse Oximetry 95 Oxygen Delivery Method Nasal Cannula Nasal Cannula Nasal Cannula Oxygen Flow Rate 4 4 4 Sepsis Recent Fever Within 48 Hours No Sepsis New/Unexplained Change in Mental Status No Sepsis Action Taken by Nursing No Action Required 07/18/25 14:51 07/18/25 15:00 07/18/25 15:00 Temperature Temperature Source Pulse Rate 106 H 108 H 109 H Pulse Rate from SpO2 Sensor 106 H 110 H Respiratory Rate 32 H 30 H Respiratory Effort / Characteristics Blood Pressure 163/92 H 171/92 H Blood Pressure Mean 115 118 Blood Pressure Position Pulse Oximetry 93 93 Oxygen Delivery Method Nasal Cannula Nasal Cannula Oxygen Flow Rate 2 2 Sepsis Recent Fever Within 48 Hours Sepsis New/Unexplained Change in Mental Status Sepsis Action Taken by Nursing 07/18/25 15:15 07/18/25 15:15 07/18/25 15:15 Temperature Temperature Source Pulse Rate Pulse Rate from SpO2 Sensor Respiratory Rate Respiratory Effort / Characteristics Blood Pressure 154/80 H 154/80 H 154/80 H Blood Pressure Mean 116 116 116 Blood Pressure Position Pulse Oximetry Oxygen Delivery Method Oxygen Flow Rate Sepsis Recent Fever Within 48 Hours Sepsis New/Unexplained Change in Mental Status Sepsis Action Taken by Nursing 07/18/25 15:15 07/18/25 15:15 07/18/25 15:30 Temperature Temperature Source Pulse Rate 103 H Pulse Rate from SpO2 Sensor 103 H Respiratory Rate 29 H Respiratory Effort / Characteristics Blood Pressure 154/80 H 142/77 H Blood Pressure Mean 116 99 Blood Pressure Position Pulse Oximetry 93 Oxygen Delivery Method Nasal Cannula Oxygen Flow Rate 2 Sepsis Recent Fever Within 48 Hours Sepsis New/Unexplained Change in Mental Status Sepsis Action Taken by Nursing 07/18/25 15:30 07/18/25 15:30 07/18/25 15:30 Temperature Temperature Source Pulse Rate Pulse Rate from SpO2 Sensor Respiratory Rate Respiratory Effort / Characteristics Blood Pressure 142/77 H 142/77 H 142/77 H Blood Pressure Mean 99 99 99 Blood Pressure Position Pulse Oximetry Oxygen Delivery Method Oxygen Flow Rate Sepsis Recent Fever Within 48 Hours Sepsis New/Unexplained Change in Mental Status Sepsis Action Taken by Nursing 07/18/25 15:30 07/18/25 15:30 07/18/25 16:00 Temperature Temperature Source Pulse Rate 103 H 100 H Pulse Rate from SpO2 Sensor 101 H 102 H Respiratory Rate 28 H 24 Respiratory Effort / Characteristics Blood Pressure 142/77 H 148/80 H Blood Pressure Mean 99 102 Blood Pressure Position Pulse Oximetry 94 90 Oxygen Delivery Method Nasal Cannula Nasal Cannula Oxygen Flow Rate 2 2 Sepsis Recent Fever Within 48 Hours Sepsis New/Unexplained Change in Mental Status Sepsis Action Taken by Nursing 07/18/25 16:15 07/18/25 17:00 07/18/25 17:45 Temperature Temperature Source Pulse Rate 96 H 87 85 Pulse Rate from SpO2 Sensor 98 H 92 H Respiratory Rate 19 22 22 Respiratory Effort / Characteristics Blood Pressure 117/66 116/67 122/67 Blood Pressure Mean 83 83 85 Blood Pressure Position Pulse Oximetry 94 92 94 Oxygen Delivery Method Nasal Cannula Nasal Cannula Nasal Cannula Oxygen Flow Rate 2 2 2 Sepsis Recent Fever Within 48 Hours Sepsis New/Unexplained Change in Mental Status Sepsis Action Taken by Nursing 07/18/25 18:00 Temperature Temperature Source Pulse Rate 92 H Pulse Rate from SpO2 Sensor 94 H Respiratory Rate 24 Respiratory Effort / Characteristics Blood Pressure 127/72 Blood Pressure Mean 90 Blood Pressure Position Pulse Oximetry 94 Oxygen Delivery Method Nasal Cannula Oxygen Flow Rate 2 Sepsis Recent Fever Within 48 Hours Sepsis New/Unexplained Change in Mental Status Sepsis Action Taken by [facility] Medications Current Medication List: was personally reviewed by me Laboratory Data Attestation: I reviewed the patient's lab results. Uptrending troponins, mild leukocytosis 07/18/25 14:04 07/18/25 14:04 Lab Results 07/18/25 07/18/25 Range/Units 14:04 15:49 WBC 14.01 H (4.8-10.8) K/ul RBC 4.99 (4.20-5.40) M/uL Hgb 15.3 (12.0-16.0) g/dL Hct 46.6 (37.0-47.0) % MCV 93.4 (80.0-100.0) fL MCH 30.7 (25.0-34.0) pg MCHC 32.8 (32.0-36.0) g/dL RDW Std Deviation 43.8 (36.4-46.3) fL RDW Coeff of Aries 12.8 (11.5-14.5) % Plt Count 182 (130-400) K/uL MPV 10.7 (9.4-12.4) fL Immature Gran % (Auto) 0.5 % Neut % (Auto) 83.9 % Lymph % (Auto) 7.9 % Zapata % (Auto) 6.9 % Eos % (Auto) 0.2 % Baso % (Auto) 0.6 % Neut # (Auto) 11.76 H (1.40-6.50) K/uL Lymph # (Auto) 1.11 L (1.20-3.40) K/uL Zapata # (Auto) 0.96 H (0.11-0.59) K/uL Eos # (Auto) 0.03 (0.00-0.50) K/uL Baso # (Auto) 0.08 (0.00-0.20) K/uL Immature Gran # (Auto) 0.07 (0.01-0.20) K/uL VBG pH 7.33 L (7.36-7.41) VBG pCO2 63 H (38-50) mmHg VBG pO2 51 mmHg VBG HCO3 33 mmol/L VBG O2 Saturation 77.8 % VBG Base Excess 5.3 mEq/L Sodium 141 (136-145) mmol/L Potassium 3.8 (3.5-5.1) mmol/L Chloride 105 (98-107) mmol/L Carbon Dioxide 30 (21-32) mmol/L Anion Gap 6 (3-11) BUN 20 (6-23) mg/dl Creatinine 0.73 (0.6-1.2) mg/dl Est Cr Clr Drug Dosing 36.5 ml/min eGFR 80.54 BUN/Creatinine Ratio 27.4 H (10-20) Glucose 219 H (70-99(Fasting)) mg/dl Calcium 9.5 (8.6-10.3) mg/dl Total Bilirubin 0.7 (0.2-1.0) mg/dl AST 21 (13-39) U/L ALT 12 (7-52) U/L Alkaline Phosphatase 70 (34-104) U/L Troponin I High Sens 35.9 H 62.5 H* D (0-14) pg/ml B-Natriuretic Peptide 86 (0-100) pg/ml Total Protein 6.6 (6.0-8.3) gm/dl Albumin 4.1 (3.4-5.0) gm/dl Globulin 2.5 (2.5-4.0) gm/dl Albumin/Globulin Ratio 1.6 (0.9-2) Administered Medications Albuterol (Albut/Ipratrop 3mg/0.5mg Neb 3 Ml Vial) 3 ml INH Q6H NALDO; Protocol Stop: 08/17/25 20:39 Last Admin: 07/18/25 22:15 Dose: 3 ml Documented By: LGB Fluticasone Furoate (Fluticasone Furoate 100mcg 14 Puffs/Inhaler) 1 puffs INH DAILY NALDO; Protocol Stop: 08/17/25 20:59 Last Admin: 07/18/25 21:32 Dose: 1 puffs Documented By: TASIA Heparin Sodium (Porcine) (Heparin Sod 5,000 Unit/0.5 Ml Vial) 5,000 units SQ Q12 NALDO Stop: 08/17/25 20:59 Last Admin: 07/18/25 21:36 Dose: 5,000 units Documented By: TASIA Methylprednisolone 40 mg/ (Syringe) 0.64 mls @ 1.5 mls/min IV BID NALDO Stop: 08/17/25 20:59 Last Admin: 07/18/25 21:34 Dose: 1.5 mls/min Documented By: TASIA Rosuvastatin Calcium (Rosuvastatin Calcium 20 Mg Tab) 20 mg PO HS NALDO Stop: 08/17/25 20:59 Last Admin: 07/18/25 21:34 Dose: 20 mg Documented By: TASIA Umeclidinium/Vilanterol (Umeclidinium/Vilanterol 62.5/25mcg 7 Puffs/Inhaler) 1 puffs INH DAILY NALDO; Protocol Stop: 08/17/25 20:59 Last Admin: 07/18/25 21:33 Dose: 1 puffs Documented By: TASIA Discontinued Medications Albuterol (Albut/Ipratrop 3mg/0.5mg Neb 3 Ml Vial) 3 ml INH NOW STA Stop: 07/18/25 14:09 Last Admin: 07/18/25 14:28 Dose: 3 ml Documented By: [id number] Aspirin (Aspirin Chew 324 Mg) 324 mg PO NOW STA Stop: 07/18/25 16:51 Last Admin: 07/18/25 16:56 Dose: 324 mg Documented By: [id number] Digoxin (Digoxin 0.125 Mg Tab) 0.125 mg PO NOW ONE Stop: 07/18/25 17:26 Last Admin: 07/18/25 17:37 Dose: Not Given Documented By: [id number] Sodium Chloride (Nss) 500 mls @ 999 mls/hr IV .Q31M STA Stop: 07/18/25 14:38 Last Infusion: 07/18/25 15:28 Dose: Infused Documented By: [id number] Admin: 07/18/25 14:28 Dose: 999 mls/hr Documented By: [id number] Sodium Chloride (Nss) 500 mls @ 999 mls/hr IV .Q31M ONE Stop: 07/18/25 17:55 Last Admin: 07/18/25 17:37 Dose: Not Given Documented By: [id number] Ioversol (Optiray 320 125ml) 115 ml IV ONCE ONE Stop: 07/18/25 17:21 Last Admin: 07/18/25 17:21 Dose: 115 ml Documented By: REGGIE Lorazepam (Lorazepam 1 Mg Tab) 1 mg PO NOW STA Stop: 07/18/25 14:09 Last Admin: 07/18/25 14:28 Dose: 1 mg Documented By: [id number] Imaging Data Attestation: I personally reviewed and interpreted this imaging study as follows: My Impression: Emphysema, no active pneumonia, Negative for PE Radiologist's Impression: Chest X-Ray 07/18/25 14:08 XR chest 1V portable CLINICAL HISTORY: Dyspnea COMPARISON STUDY: 05/01/2024 FINDINGS: Heart size and pulmonary vasculature are normal. Stable hyperexpanded lungs. No consolidation or pleural effusion. No pneumothorax. IMPRESSION: Emphysema without evidence of acute pneumonia. ACT 112: Negative or not required by law. Electronically signed by: Florentino Carvajal M.D. 07/18/2025 2:23 PM Chest CTA 07/18/25 16:50 Clinical history: Rule out pulmonary embolism Technique: Axial computed tomography images were obtained of the chest after the administration of intravenous contrast according to the CT angiogram protocol Comparison is made to the prior CT dated 05/02/2024 Findings: There is no definite sign of pulmonary embolism. There is severe emphysema. There is mild atelectasis or scar in the lingula and left lower lobe. There is a small calcified granuloma in the right upper lobe anterior segment. There is no pleural effusion or pneumothorax. There is no sign of pulmonary fibrosis or other diffuse interstitial process. No endobronchial lesion is seen There is no mediastinal, hilar, or axillary adenopathy. The thoracic aorta appears unremarkable with no sign of aneurysm or dissection. 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 There is no pericardial effusion. There is coronary atherosclerosis The visualized upper abdomen appears unremarkable. No fracture is seen. No focal osseous lesion is evident Impression: 1. No definite sign of pulmonary embolism 2. Emphysema Electronically signed by Eh Cason 07-18-2025 6:58 PM Discharge Plan Visit Data Chief Complaint: Shortness of Breath/Dyspnea Stated Complaint: sob,wheezing ED Provider: Emile Bui Discharge Problem: COPD with exacerbation Patient Disposition: Admitted As Inpatient Condition: Serious Discharge Instructions Interventions: ED Discharge Assessment Last Done: 07/18/25 20:54
[2025-07-18 14:14] LABS: Base Excess VBG 5.3 mEq/L; HCO3 VBG 33 mmol/L; Oxygen Saturation VBG 77.8 %; PCO2 VBG 63 mmHg (38-50); PO2 VBG 51 mmHg; pH VBG 7.33 (7.36-7.41)
[2025-07-18 14:19] LABS: Hematocrit (blood only) 46.6 % (37.0-47.0); Hemoglobin 15.3 g/dL (12.0-16.0); Immature Granulocytes # (auto) 0.07 K/uL (0.01-0.20); Immature Granulocytes % (auto) 0.5 %; Mean Corpuscular Hemoglobin 30.7 pg (25.0-34.0); Mean Corpuscular Volume 93.4 fL (80.0-100.0); Platelet Count 182 K/uL (130-400); RDW Standard Deviation 43.8 fL (36.4-46.3); Red Blood Count 4.99 M/uL (4.20-5.40); White Blood Count 14.01 K/ul (4.8-10.8)
--- NOTE | 2025-07-18 14:24 | XRay Report ---
XR chest 1V portable CLINICAL HISTORY: Dyspnea COMPARISON STUDY: 05/01/2024 FINDINGS: Heart size and pulmonary vasculature are normal. Stable hyperexpanded lungs. No consolidati on or pleural effusion. No pneumothorax. IMPRESSION: Emphysema without evidence of acute pneumonia. ACT 112: Negative or not required by law. Electronically signed by: Florentino Carvajal M.D. 07/18/2025 2:23 PM
[2025-07-18] MEDS: SODIUM CHLORIDE 0.9% 500 ML IV STA (14:28)
[2025-07-18] MEDS: LORazepam 1 MG TAB PO STA (14:28)
[2025-07-18] MEDS: ALBUT/IPRATROP 3MG/0.5MG NEB 3 ML VIAL INH STA (14:28)
[2025-07-18 14:37] LABS: Alanine Aminotransferase 12.0 U/L (7-52); Albumin Globulin Ratio 1.6 (0.9-2); Albumin Level 4.1 gm/dl (3.4-5.0); Alkaline Phosphatase 70.0 U/L (34-104); Anion Gap 6.0 (3-11); Bilirubin,Total 0.7 mg/dl (0.2-1.0); Blood Urea Nitrogen 20.0 mg/dl (6-23); Calcium 9.5 mg/dl (8.6-10.3); Carbon Dioxide 30.0 mmol/L (21-32); Chloride 105.0 mmol/L (98-107); Creatinine Clr Calc Pharmacy 36.5 ml/min; Globulin 2.5 gm/dl (2.5-4.0); Glucose 219.0 mg/dl (70-99(Fasting)); Potassium 3.8 mmol/L (3.5-5.1); Sodium 141.0 mmol/L (136-145); Total Protein 6.6 gm/dl (6.0-8.3)
[2025-07-18] MEDS: ASPIRIN CHEW 324 MG PO STA (16:56)
[2025-07-18] MEDS: OPTIRAY 320 125ml IV ONE (17:21)
--- NOTE | 2025-07-18 17:25 | History & Physical Report ---
Date of Service July 18, 2025 Assessment & Plan (1) COPD with exacerbation: Plan: Has been complaining of more than usual shortness of breath recently with minimal cough but no phlegm Was seen in [facility] office and was very anxious Started to have more shortness of breath with chest tightness but no definitive chest pain Was sent in from [facility] office to emergency room Noted to have acute exacerbation of COPD likely noninfective CTA-NO PE Started with intravenous Solu-Medrol and will be continued 40 mg IV twice daily Uses 2 L nasal cannula at home continuously Will use nebulized bronchodilators [id number] and continue with her other m edications (2) Elevated troponin: Plan: Noted to have tachycardia and also minimally elevated troponin at 35.9 Second troponin came further elevation to 62.5 EKG was in sinus rhythm with nonspecific ST-T wave changes Will get serial troponins Will get cardiology consult as she was in the cardiology office prior to admission (3) Anxiety: Plan: Has significant anxiety disorder Gets anxiety attack easily in the form of palpitation and shortness of breath Not been taking any medications for anxiety Will try hydroxyzine and try to avoid benzodiazepines (4) HTN (hypertension): Plan: Blood pressure seems to be well-controlled and will continue current medications (5) Severe malnutrition: Plan: Nutritional assessment (6) HLD (hyperlipidemia): Plan: Continue statin DVT prophylaxis Subcu heparin CODE STATUS Full Discussed with the in the room History of Present Illness Chief Complaint: Shortness of breath Primary Care Provider: Elvia Kidd MD She is an 84-year-old female with significant past medical history of COPD, chronic hypoxic respiratory failure on 2 L of nasal cannula at home, hypertension, hyperlipidemia, anxiety and other medical problems as mentioned below was sent in from the [facility] office with increasing shortness of breath and anxiety. She denies any chest pain or palpitation or any swelling of the legs. denies any fever and/or chills, does not have any abdominal pain nausea or vomiting. She was noted to have acute exacerbation of COPD and needed to rule out pulmonary embolism. She received intravenous Solu-Medrol and nebulized bronchodilator and was admitted to medical telemetry unit for continuation of care. She also received oral dose of lorazepam for anxiety. She also complained that she has been losing weight along for a long time. She was explained that this is more likely her chronic respiratory failure and COPD. Allergies Allergy/AdvReac Type Severity Reaction Status Date / Time bee venom protein (honey bee) Allergy Intermediate EXTRA Verified 07/18/25 16:33 SWELLING AT SITES Home Medications Medication Instructions Recorded Confirmed Type fluticasone fur. 100 mcg-umeclid 1 inh inhalation DAILY 05/01/24 07/18/25 History 62.5 mcg-vilant 25 mcg inhalat.powder (Trelegy Ellipta) levalbuterol tartrate 45 1 puff inhalation DAILY PRN 05/01/24 07/18/25 History mcg/actuation aerosol inhaler Shortness Of Breath Or Wheezing rosuvastatin 20 mg tablet 20 mg PO HS 05/01/24 07/18/25 History aspirin 81 mg chewable tablet 81 mg PO DAILY PRN CHEST 07/18/25 07/18/25 History PAIN/PALPATATIONS cholecalciferol (vitamin D3) 25 25 mcg PO DAILY 07/18/25 07/18/25 History mcg (1,000 unit) capsule (Vitamin D3) ipratropium 0.5 mg-albuterol 3 mg 3 ml inhalation DIRECTED PRN 07/18/25 07/18/25 History (2.5 mg base)/3 mL nebulization Shortness Of Breath Or Wheezing soln lisinopril 5 mg tablet 5 mg PO DAILY 07/18/25 07/18/25 History montelukast 10 mg tablet 10 mg PO DAILY PRN Congestion 07/18/25 07/18/25 History nitroglycerin 0.4 mg sublingual 0.4 mg sublingual DIRECTED PRN 07/18/25 07/18/25 History tablet Chest Pain Past Med/Surg History Problem List (Updated 07/18/25 @ 18:52 by Kenney Gould MD) Severe malnutrition COPD with exacerbation (Acute) Medical History HLD (hyperlipidemia) HTN (hypertension) Anxiety COPD (chronic obstructive pulmonary disease) Surgical History No pertinent past surgical history Family History Other Hypertension Social History (Updated 05/01/24 @ 16:22 by Radha Kevin, PA-C) Smoking Status: Former smoker Tobacco Type: Cigarettes Hx Alcohol Use: Yes Alcohol Intake Frequency: Monthly or Less Hx Substance Use: No Preferred Language: Icelandic Communication Ability: Effective Feels Safe at Home: Yes Assistive Devices: Oxygen - Continuous and Walker Review of Systems Review of Systems: All systems reviewed and are unremarkable except as noted below Physical Exam Physical Exam: Lying in bed with moderate shortness of breath at rest Constitutional: + ill appearing and + thin Eyes: PERRL, conjunctivae normal, anicteric sclerae Neck: trachea midline, no thyromegaly Respiratory: + respiratory distress, + labored breath ing and + retractions Auscultation: lungs clear to auscultation bilaterally and + wheezes (Minimal wheezing bilaterally) Cardiovascular: Rate/Rhythm: regular rate and regular rhythm; not tachycardic Heart Sounds: normal S1 and normal S2; no murmur Extremities: no edema Gastrointestinal (Abdomen): Inspection/Auscultation: normal bowel sounds; a bdomen not distended Percussion/Palpation: abdomen soft; abdomen nontender Musculoskeletal: Osteoarthritic changes but no acute arthritis involving any of the joint Skin: Scattered bruising generalized Neurologic: normal touch/pain/proprioception and moves all extremities; no focal motor deficits Lymphatic: no cervical or axillary lymphadenopathy Results & Data Results & Data Vital Signs (Past 12 Hours) Vital Signs Temp Pulse Resp BP Pulse Ox O2 Del Method O2 Flow Rate 07/18/25 16:00 100 H 27 H 148/80 H 90 Room Air 2 07/18/25 15:30 103 H 28 H 94 07/18/25 15:30 142/77 H 07/18/25 15:30 142/77 H 07/18/25 15:30 142/77 H 07/18/25 15:30 142/77 H 07/18/25 15:30 142/77 H 07/18/25 15:15 103 H 29 H 93 07/18/25 15:15 154/80 H 07/18/25 15:15 154/80 H 07/18/25 15:15 154/80 H 07/18/25 15:15 154/80 H 07/18/25 15:00 109 H 30 H 171/92 H 93 Nasal Cannula 2 07/18/25 15:00 108 H 07/18/25 14:51 106 H 32 H 163/92 H 93 Nasal Cannula 2 07/18/25 14:22 Nasal Cannula 4 07/18/25 14:20 Nasal Cannula 4 07/18/25 13:48 36.9 C 80 30 H 154/95 H 95 Nasal Cannula 4 Laboratory Results Short CBC 07/18/25 Range/Units 14:04 WBC 14.01 H (4.8-10.8) K/ul Hgb 15.3 (12.0-16.0) g/dL Hct 46.6 (37.0-47.0) % Plt Count 182 (130-400) K/uL BMP 07/18/25 14:04 Sodium 141 Potassium 3.8 Chloride 105 Carbon Dioxide 30 BUN 20 Creatinine 0.73 Glucose 219 H Calcium 9.5 Liver Function 07/18/25 Range/Units 14:04 Total Bilirubin 0.7 (0.2-1.0) mg/dl AST 21 (13-39) U/L ALT 12 (7-52) U/L Alkaline Phosphatase 70 (34-104) U/L Albumin 4.1 (3.4-5.0) gm/dl Diagnostic Findings Laboratory Results WBC 14.01 K/ul (4.8-10.8) H 07/18/25 14:04 RBC 4.99 M/uL (4.20-5.40) 07/18/25 14:04 Hgb 15.3 g/dL (12.0-16.0) 07/18/25 14:04 Hct 46.6 % (37.0-47.0) 07/18/25 14:04 MCV 93.4 fL (80.0-100.0) 07/18/25 14:04 MCH 30.7 pg (25.0-34.0) 07/18/25 14:04 MCHC 32.8 g/dL (32.0-36.0) 07/18/25 14:04 RDW Std Deviation 43.8 fL (36.4-46.3) 07/18/25 14:04 RDW Coeff of Aries 12.8 % (11.5-14.5) 07/18/25 14:04 Plt Count 182 K/uL (130-400) 07/18/25 14:04 MPV 10.7 fL (9.4-12.4) 07/18/25 14:04 Immature Gran % (Auto) 0.5 % 07/18/25 14:04 Neut % (Auto) 83.9 % 07/18/25 14:04 Lymph % (Auto) 7.9 % 07/18/25 14:04 Price % (Auto) 6.9 % 07/18/25 14:04 Eos % (Auto) 0.2 % 07/18/25 14:04 Baso % (Auto) 0.6 % 07/18/25 14:04 Neut # (Auto) 11.76 K/uL (1.40-6.50) H 07/18/25 14:04 Lymph # (Auto) 1.11 K/uL (1.20-3.40) L 07/18/25 14:04 Price # (Auto) 0.96 K/uL (0.11-0.59) H 07/18/25 14:04 Eos # (Auto) 0.03 K/uL (0.00-0.50) 07/18/25 14:04 Baso # (Auto) 0.08 K/uL (0.00-0.20) 07/18/25 14:04 Immature Gran # (Auto) 0.07 K/uL (0.01-0.20) 07/18/25 14:04 VBG pH 7.33 (7.36-7.41) L 07/18/25 14:04 VBG pCO2 63 mmHg (38-50) H 07/18/25 14:04 VBG pO2 51 mmHg 07/18/25 14:04 VBG HCO3 33 mmol/L 07/18/25 14:04 VBG O2 Saturation 77.8 % 07/18/25 14:04 VBG Base Excess 5.3 mEq/L 07/18/25 14:04 Sodium 141 mmol/L (136-145) 07/18/25 14:04 Potassium 3.8 mmol/L (3.5-5.1) 07/18/25 14:04 Chloride 105 mmol/L (98-107) 07/18/25 14:04 Carbon Dioxide 30 mmol/L (21-32) 07/18/25 14:04 Anion Gap 6 (3-11) 07/18/25 14:04 BUN 20 mg/dl (6-23) 07/18/25 14:04 Creatinine 0.73 mg/dl (0.6-1.2) 07/18/25 14:04 Est Cr Clr Drug Dosing 36.5 ml/min 07/18/25 14:04 eGFR 80.54 07/18/25 14:04 BUN/Creatinine Ratio 27.4 (10-20) H 07/18/25 14:04 Glucose 219 mg/dl (70-99(Fasting)) H 07/18/25 14:04 Calcium 9.5 mg/dl (8.6-10.3) 07/18/25 14:04 Total Bilirubin 0.7 mg/dl (0.2-1.0) 07/18/25 14:04 AST 21 U/L (13-39) 07/18/25 14:04 ALT 12 U/L (7-52) 07/18/25 14:04 Alkaline Phosphatase 70 U/L (34-104) 07/18/25 14:04 Troponin I High Sens 62.5 pg/ml (0-14) H* D 07/18/25 15:49 B-Natriuretic Peptide 86 pg/ml (0-100) 07/18/25 14:04 Total Protein 6.6 gm/dl (6.0-8.3) 07/18/25 14:04 Albumin 4.1 gm/dl (3.4-5.0) 07/18/25 14:04 Globulin 2.5 gm/dl (2.5-4.0) 07/18/25 14:04 Albumin/Globulin Ratio 1.6 (0.9-2) 07/18/25 14:04 Impressions Chest X-Ray 07/18/25 14:08 XR chest 1V portable CLINICAL HISTORY: Dyspnea COMPARISON STUDY: 05/01/2024 FINDINGS: Heart size and pulmonary vasculature are normal. Stable hyperexpanded lungs. No consolidation or pleural effusion. No pneumothorax. IMPRESSION: Emphysema without evidence of acute pneumonia. ACT 112: Negative or not required by law. Electronically signed by: Florentino Carvajal M.D. 07/18/2025 2:23 PM
[2025-07-18] MEDS: SODIUM CHLORIDE 0.9% 500 ML IV ONE (17:37)
[2025-07-18] MEDS: DIGOXIN 0.125 MG TAB PO ONE (17:37)
--- NOTE | 2025-07-18 18:59 | CT Scan Report ---
Clinical history: Rule out pulmonary embolism Technique: Axial computed tomography images were obtained of the chest after the administration of intravenous contrast according to the CT angiogram protocol Comparison is made to the prior CT dated 05/02/2024 Findings: There is no definite sign of pulmonary embolism. There is severe emphysema. There is mild atelectasis or scar in the lingula and left lower lobe. There is a small calcified granuloma in the right upper lobe anterior segment. There is no pleural effusion or pneumothorax. There is no sign of pulmonary fibrosis or other diffuse interstitial process. No endobronchial lesion is seen There is no mediastinal, hilar, or axillary adenopathy. The thoracic aorta appears unremarkable with no sign of aneurysm or dissection. 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 There is no pericardial effusion. There is coronary atherosclerosis The visualized upper abdomen appears unremarkable. No fracture is seen. No focal osseous lesion is evident Impression: 1. No definite sign of pulmonary embolism 2. Emphysema Electronically signed by Eh Cason 07-18-2025 6:58 PM
[2025-07-18] MEDS ORDERED: NON-FORMULARY MEDICATION (Fluticasone-Umeclidin-Vilanter [Trelegy Ellipta] 100-62.5-25 mcg INH SCH (20:40)
[2025-07-18] MEDS: FLUTICASONE FUROATE 100MCG 14 PUFFS/INHALER INH SCH (21:32)
[2025-07-18] MEDS: UMECLIDINIUM/VILANTEROL 62.5/25MCG 7 PUFFS/INHALER INH SCH (21:33)
[2025-07-18] MEDS: ROSUVASTATIN CALCIUM 20 MG TAB PO SCH (21:34)
[2025-07-18] MEDS: HEPARIN SOD 5,000 UNIT/0.5 ML VIAL SQ SCH (21:36)
[2025-07-18] MEDS: ALBUT/IPRATROP 3MG/0.5MG NEB 3 ML VIAL INH SCH (22:15)
[2025-07-19 06:03] LABS: Appearance Urine Clear (Clear); Glucose Urine UA Negative (Negative)
[2025-07-19] MEDS: ALBUT/IPRATROP 3MG/0.5MG NEB 3 ML VIAL INH SCH (07:02)
[2025-07-19] MEDS: CHOLECALCIFEROL 25 MCG (1000 UNITS) TAB PO SCH (08:00)
[2025-07-19] MEDS: NITROGLYCERIN SL 0.4 MG/TAB TAB SL PRN (08:15)
[2025-07-19] MEDS ORDERED: LEVALBUTEROL HCL 0.63 MG/3 ML NEB NEB PRN (08:21)
[2025-07-19 08:27] LABS: Hematocrit (blood only) 43.2 % (37.0-47.0); Hemoglobin 14.7 g/dL (12.0-16.0); Mean Corpuscular Hemoglobin 31.3 pg (25.0-34.0); Mean Corpuscular Volume 92.1 fL (80.0-100.0); Platelet Count 184 K/uL (130-400); RDW Standard Deviation 42.7 fL (36.4-46.3); Red Blood Count 4.69 M/uL (4.20-5.40); White Blood Count 9.67 K/ul (4.8-10.8)
[2025-07-19 08:46] LABS: Anion Gap 7.0 (3-11); Blood Urea Nitrogen 16.0 mg/dl (6-23); Calcium 10.1 mg/dl (8.6-10.3); Carbon Dioxide 31.0 mmol/L (21-32); Chloride 102.0 mmol/L (98-107); Creatinine Clr Calc Pharmacy 38.2 ml/min; Glucose 151.0 mg/dl (70-99(Fasting)); Magnesium 2.3 mg/dl (1.7-2.4); Potassium 4.3 mmol/L (3.5-5.1); Sodium 140.0 mmol/L (136-145)
[2025-07-19 08:51] LABS: Immature Granulocytes # (auto) 0.03 K/uL (0.01-0.20); Immature Granulocytes % (auto) 0.3 %
--- NOTE | 2025-07-19 12:05 | Cardiology Consultation ---
Date of Consultation July 19, 2025 Assessment & Plan (1) NSTEMI (non-ST elevated myocardial infarction): (2) Intermittent palpitations: Plan NSTEMI - likely type II in nature given significant COPD exacerbation - troponin elevation is minimal, likely in response to respiratory distress - I would consider obtaining her previous cardiology records through [facility]. - Last echocardiogram performed on 05/05/2024, a new order has been placed for reassessment. - Obtain lipid panel. Palpitations - Per patient, these appear frequently and there may be a degree of associated symptoms - Upon discharge, would recommend for the patient to follow-up with cardiology and be placed on an outpatient monitor to assess her burden. From there, we can determine treatment options if any. Supervising Physician Co-Signing Physician Notes Patient interviewed and examined, reviewed in detail with Vidya Baez. Her symptoms are not likely related to CAD, her troponin elevation is most consistent with demand ischemia. I would not investigate further. History of Present Illness Reason for Consultation: increased trop Requesting Physician: Jose Gould Attending Physician: Dameon Davalos MD History of Present Illness Barbara is an 84-year-old female past medical history significant for COPD with chronic oxygen dependence who was admitted yesterday on 07/18/25 after being sent to the ER from our office. She had an appointment with our office yesterday though she was found to be in respiratory distress in which she was transferred to the ER and was subsequently admitted. Cardiology was consulted given she was to be seen in our office earlier in the day. In the ER, her EKG revealed sinus tachycardia with a rate of 109. There are minimal ST depressions present to the lateral leads. She had a troponin peak of 63.3 with the most recent being 29. CTA of the chest simply revealed her known emphysema. Per review of telemetry, she appears to be in normal sinus rhythm today with a rate ranging from 60s to 70s. Her last echocardiogram was completed in April 2024. LV and LVSF were normal. EF 55 to 60%. Grade 1 diastolic function. Abnormal septal motion noted. Mild MR. Mild aortic sclerosis. She was to be established with Dr. Garcia on the day of hospital admission for further evaluation of her palpitations. Barbara tells me that her palpitations occur almost on a daily basis. When her palpitations began she starts to feel short of breath and has to sit down. She states her palpitations make her feel quite anxious. She does not experience any dizziness or near syncope with her palpitations. She has never had a syncopal event before. She does not develop any chest pain or pressure with these palpitations. She has not noticed any swelling to her lower extremities. Previously, she followed with Dr. Pemberton through [facility] for palpitations from the early 1999s to about 2018 she believes. She tells me she had 2 cardiac catheterizations completed and a dobutamine stress test in the past all of which did not show any concerns. Since Dr. Pemberton had retired, she had not followed with any cardiologists. Allergies Allergy/AdvReac Type Severity Reaction Status Date / Time bee venom protein (honey bee) Allergy Intermediate EXTRA Verified 07/18/25 16:33 SWELLING AT SITES Home Medications Medication Instructions Recorded Confirmed Type fluticasone fur. 100 mcg-umeclid 1 inh inhalation DAILY 05/01/24 07/18/25 History 62.5 mcg-vilant 25 mcg inhalat.powder (Trelegy Ellipta) levalbuterol tartrate 45 1 puff inhalation DAILY PRN 05/01/24 07/18/25 History mcg/actuation aerosol inhaler Shortness Of Breath Or Wheezing rosuvastatin 20 mg tablet 20 mg PO HS 05/01/24 07/18/25 History aspirin 81 mg chewable tablet 81 mg PO DAILY PRN CHEST 07/18/25 07/18/25 History PAIN/PALPATATIONS cholecalciferol (vitamin D3) 25 25 mcg PO DAILY 07/18/25 07/18/25 History mcg (1,000 unit) capsule (Vitamin D3) ipratropium 0.5 mg-albuterol 3 mg 3 ml inhalation DIRECTED PRN 07/18/25 07/18/25 History (2.5 mg base)/3 mL nebulization Shortness Of Breath Or Wheezing soln lisinopril 5 mg tablet 5 mg PO DAILY 07/18/25 07/18/25 History montelukast 10 mg tablet 10 mg PO DAILY PRN Congestion 07/18/25 07/18/25 History nitroglycerin 0.4 mg sublingual 0.4 mg sublingual DIRECTED PRN 07/18/25 07/18/25 History tablet Chest Pain Patient History Medical History HLD (hyperlipidemia) HTN (hypertension) Anxiety COPD (chronic obstructive pulmonary disease) Surgical History No pertinent past surgical history Family History Other Hypertension Social History (Updated 05/01/24 @ 16:22 by Radha Brown PA-C) Smoking Status: Former smoker Tobacco Type: Cigarettes Cigarettes Per Day: 2-3; Hx Alcohol Use: Yes Alcohol type: wine Alcohol Intake Frequency: Monthly or Less Hx Substance Use: No Preferred Language: Latvian Communication Ability: Effective Water Trainer Required: No Beliefs That Will Affect Care: None Current Living Situation: Spouse Other Information That Helps Us Care for You: No Feels Safe at Home: Yes Assistive Devices: Hospital Bed, Oxygen - Continuous and Walker Review of Systems Review of Systems: per HPI Physical Exam Physical Exam: Physical Exam: Thin, frail elderly woman AOx3. Mood affect appear normal. All questions appropriately. HEENT: Sclerae are anicteric. Pupils are equal and reactive to light and accommodation. Extraocular movements were intact. Neuro: Cranial nerves intact Lungs: Harsh expiratory wheezes are present bilaterally. Able to talk in 3-4 word sentences before becoming short of breath. Cardiac: The rhythm was regular. S1 and S2 were normal. There are no murmurs on examination. The PMI was not markedly displaced on palpation. Extremities: Patient has bilateral radial pulses that are equal in intensity. There is no evidence cyanosis or clubbing. There was no evidence of significant peripheral edema bilaterally. Skin: There are no rashes noted on examination today. Results & Data Vital Signs (Past 12 Hours) Vital Signs Temp Pulse Pulse Resp BP Pulse Ox O2 Del Method 07/19/25 11:16 36.7 C 80 20 128/71 91 Nasal Cannula 07/19/25 08:27 87 126/73 91 Nasal Cannula 07/19/25 08:14 81 147/67 H 96 Nasal Cannula 07/19/25 08:03 36.4 C L 74 20 136/80 92 Nasal Cannula 07/19/25 08:00 Nasal Cannula 07/19/25 07:02 73 18 95 Nasal Cannula 07/19/25 06:45 75 07/19/25 03:34 36.8 C 76 20 150/72 H 90 Nasal Cannula O2 Flow Rate 07/19/25 11:16 2 07/19/25 08:27 2 07/19/25 08:14 2 07/19/25 08:03 2 07/19/25 08:00 2 07/19/25 07:02 2 07/19/25 06:45 07/19/25 03:34 2 PG Care Time/CCT Total # of Minutes Spent Total Time Spent with Patient: Total time spent is greater than 50% in coordination of care (as documented) at patient's floor/unit and/or counseling patient: Coding [place] [address] INT INP/OBS CARE 3/75MIN Patient Type Established Diagnoses NSTEMI (non-ST elevated myocardial infarction) I21.4 Intermittent palpitations R00.2
--- NOTE | 2025-07-19 14:01 | Hospitalist Progress Note ---
Date of Service July 19, 2025 Assessment & Plan (1) COPD with exacerbation: Plan: Acute COPD Exacerbation --Chest CTA:No definite sign of pulmonary embolism. Emphysema - BioFire pending - Procalcitonin pending check sputum culture Continue IV Solu-Medrol, nebs Xopenex as needed Continue supplemental oxygen to keep saturations 88 to 92% Pulmonology consulted (2) Elevated troponin: Plan: NSTEMI type II OK PACs --Palpitations likely due to above --ECHO pending --Lipid Panel pending Troponin trended down Appreciate cardiology input Needs follow-up with cardiology on discharge Monitor and replete electrolytes as needed (3) Anxiety: Plan: Not been taking any medications for anxiety Will try hydroxyzine and try to avoid benzodiazepines Monitor (4) HTN (hypertension): Plan: Continue lisinopril Monitor BP (5) Severe malnutrition: Plan: Nutritional assessment (6) HLD (hyperlipidemia): Plan: Continue statin DVT Px: SQ Heparin CODE STATUS Full Code Admission and Anticipated Discharge Date Admission Date: July 18, 2025 Subjective Patient is seen and examined at bedside States having transient chest pain associated with palpitations Also reports shortness of breath No significant cough today Family at bedside Saturating well on 2 L supplemental oxygen Review of Systems Review of Systems: All systems reviewed & are unremarkable except as noted in Subjective Physical Exam Physical Exam: Physical Exam: Vitals signs as noted above General Appearance:Thin, frail, Elderly, no apparent distress Head: normocephalic, Atraumatic Eyes: normal inspection, EOMI Neck: supple, Trachea midline Respiratory/Chest: Diminished breath sounds, wheezes, mild accessory muscle use Cardiovascular: S1, S2, No murmur Abdomen/GI:Soft, Non tender, Bowel sounds present Extremities/Musculoskeletal:normal inspection, no edema Neurologic/Psych:AAOX3, grossly no focal neurological deficits Skin: normal color, warm Results & Data Results & Data Vital Signs (Past 12 Hours) Vital Signs Temp Pulse Pulse Resp BP Pulse Ox O2 Del Method 07/19/25 13:25 92 H 24 94 Nasal Cannula 07/19/25 11:16 36.7 C 80 20 128/71 91 Nasal Cannula 07/19/25 08:27 87 126/73 91 Nasal Cannula 07/19/25 08:14 81 147/67 H 96 Nasal Cannula 07/19/25 08:03 36.4 C L 74 20 136/80 92 Nasal Cannula 07/19/25 08:00 Nasal Cannula 07/19/25 07:02 73 18 95 Nasal Cannula 07/19/25 06:45 75 07/19/25 03:34 36.8 C 76 20 150/72 H 90 Nasal Cannula O2 Flow Rate 07/19/25 13:25 2 07/19/25 11:16 2 07/19/25 08:27 2 07/19/25 08:14 2 07/19/25 08:03 2 07/19/25 08:00 2 07/19/25 07:02 2 07/19/25 06:45 07/19/25 03:34 2 Laboratory Results Short CBC 07/18/25 07/19/25 Range/Units 14:04 07:19 WBC 14.01 H 9.67 (4.8-10.8) K/ul Hgb 15.3 14.7 (12.0-16.0) g/dL Hct 46.6 43.2 (37.0-47.0) % Plt Count 182 184 (130-400) K/uL BMP 07/18/25 07/19/25 14:04 07:19 Sodium 141 140 Potassium 3.8 4.3 Chloride 105 102 Carbon Dioxide 30 31 BUN 20 16 Creatinine 0.73 0.65 Glucose 219 H 151 H Calcium 9.5 10.1 Liver Function 07/18/25 Range/Units 14:04 Total Bilirubin 0.7 (0.2-1.0) mg/dl AST 21 (13-39) U/L ALT 12 (7-52) U/L Alkaline Phosphatase 70 (34-104) U/L Albumin 4.1 (3.4-5.0) gm/dl Urine 07/19/25 Range/Units 05:49 Urine Color Yellow Urine Appearance Clear (Clear) Urine pH 6.0 (4.5-7.5) Ur Specific [place] 1.042 H (1.000-1.030) Urine Protein Negative (Negative) Urine Glucose (UA) Negative (Negative)
[2025-07-19 15:28] LABS: Chlamydia pneumoniae PCR Not Detected (NotDetected); Coronavirus 229E PCR Not Detected (NotDetected); Coronavirus CoV-2 (COVID19)PCR Not Detected (NotDetected); Coronavirus HKU1 PCR Not Detected (NotDetected); Coronavirus NL63 PCR Not Detected (NotDetected); Coronavirus OC43PCR Not Detected (NotDetected); Human Metapneumovirus PCR Not Detected (NotDetected); Parainfluenza Virus 1 PCR Not Detected (NotDetected); Parainfluenza Virus 2 PCR Not Detected (NotDetected); Parainfluenza Virus 3 PCR Not Detected (NotDetected); Parainfluenza Virus 4 PCR Not Detected (NotDetected); Respiratory Syncytial VirusPCR Not Detected (NotDetected); Rhinovirus/Enterovirus PCR Not Detected (NotDetected)
--- NOTE | 2025-07-19 16:02 | Pulmonary Consultation ---
Date of Consultation July 19, 2025 Assessment & Plan (1) COPD with exacerbation: * Unlikely infectious * Adding Azithromycin was considered, but the patient has prolonged QR-interval (2) End stage chronic obstructive pulmonary disease: * Continue home bronchodilators (3) Pulmonary cachexia due to chronic obstructive pulmonary disease: * Patient counseled regarding need to improve nutrition * Consider Nutrition consult for Pulmonary Cachexia (4) Chronic hypoxic respiratory failure, on home oxygen therapy: * Continue home Oxygen (5) Chronic hypercapnic respiratory failure: * This can be contributing to patient's dyspnea and anxiety * Will try BiPAP, and consider qualifying patient for NIV if tolerated * Patient counseled regarding potential benefit from BiPAP, and she is willing to try it. History of Present Illness Reason for Consultation: COPD Attending Physician: Dameon Davalos MD History of Present Illness The patient is a very pleasant 85-year-old male who presented to the ED with hemoptysis. He reported a several-day history of cough and worsening shortness of breath, requiring continuous supplemental oxygen, whereas he typically used oxygen only at night. Over the preceding 24 hours, he began to notice blood in his sputum. CXR in the ED was interpreted as being stable when compared to study from January 21, 2025. However, chest CTA was compared to study from January 11, 2025 and was interpreted as showing mild RML and RLL ground-glass opacities, increase in small bilateral pleural effusions, and slight increase in several LLL densities. The patient was treated with IV antibiotics initially, but antibiotics were later held as his presentation was not suggestive of bacterial pneumonia. He was started on IV Lasix for volume overload, prednisone for reactive airway disease, and Duoneb, with continuation of his home inhalers and Roflumilast. Echocardiogram was mostly unremarkable except for septal motion abnormality, moderate Aortic stenosis, and slight increase in RVSP consistent with PASP of around 45 mmHg. Pulmonary consultation was requested due to concern for recurrent malignancy versus worsening radiation pneumonitis. 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 The patient had a prior admission in January 2025 for pneumonia. There is history of Pseudomonas aeruginosa growing from sputum back in March 2022 but not since then (at least not in our system). Note from 07/19/2025: The patient continues to report dyspnea on minimal exertion. Her dyspnea at rest is slightly better than at time of admission. She hasn't been able to expectorate any sputum. Allergies Allergy/AdvReac Type Severity Reaction Status Date / Time bee venom protein (honey bee) Allergy Intermediate EXTRA Verified 07/18/25 16:33 SWELLING AT SITES Home Medications Medication Instructions Recorded Confirmed Type fluticasone fur. 100 mcg-umeclid 1 inh inhalation DAILY 05/01/24 07/18/25 History 62.5 mcg-vilant 25 mcg inhalat.powder (Trelegy Ellipta) levalbuterol tartrate 45 1 puff inhalation DAILY PRN 05/01/24 07/18/25 History mcg/actuation aerosol inhaler Shortness Of Breath Or Wheezing rosuvastatin 20 mg tablet 20 mg PO HS 05/01/24 07/18/25 History aspirin 81 mg chewable tablet 81 mg PO DAILY PRN CHEST 07/18/25 07/18/25 History PAIN/PALPATATIONS cholecalciferol (vitamin D3) 25 25 mcg PO DAILY 07/18/25 07/18/25 History mcg (1,000 unit) capsule (Vitamin D3) ipratropium 0.5 mg-albuterol 3 mg 3 ml inhalation DIRECTED PRN 07/18/25 07/18/25 History (2.5 mg base)/3 mL nebulization Shortness Of Breath Or Wheezing soln lisinopril 5 mg tablet 5 mg PO DAILY 07/18/25 07/18/25 History montelukast 10 mg tablet 10 mg PO DAILY PRN Congestion 07/18/25 07/18/25 History nitroglycerin 0.4 mg sublingual 0.4 mg sublingual DIRECTED PRN 07/18/25 07/18/25 History tablet Chest Pain Patient History Medical History HLD (hyperlipidemia) HTN (hypertension) Anxiety COPD (chronic obstructive pulmonary disease) Surgical History No pertinent past surgical history Family History Other Hypertension Social History (Updated 05/01/24 @ 16:22 by Radha Brown PA-C) Smoking Status: Former smoker Tobacco Type: Cigarettes Cigarettes Per Day: 2-3; Hx Alcohol Use: Yes Alcohol type: wine Alcohol Intake Frequency: Monthly or Less Hx Substance Use: No Preferred Language: Occitan Communication Ability: Effective Forder Operator Required: No Beliefs That Will Affect Care: None Current Living Situation: Spouse Other Information That Helps Us Care for You: No Feels Safe at Home: Yes Assistive Devices: Hospital Bed, Oxygen - Continuous and Walker Review of Systems Review of Systems: All systems reviewed & are unremarkable except as noted in HPI & below Physical Exam Physical Exam: General: In no acute distress, using Oxygenvia nasal cannula. Cachectic. Skin: Warm and dry to touch. Noobvious lesions. Eyes: Anicteric.Noconjunctival hyperemia or exudates.No periorbital edema. ENT: No oral thrush. No oropharyngeal erythema or exudates. Neck: No palpable masses or adenopathy. Respiratory: Diffusely decreased breath sounds, no wheezing or crackles. Chronic use of accessory muscles but no prolonged exhalation. Cardiac: Distant sounds, regular rhythm, no murmurs, no gallops, no rubs; could not appreciate JV pulse elevation. GI: Soft, nontender. Extremities: Mild clubbing,no cyanosis,no edema. Neuro: No gross motor deficits. Seems appropriate. No facial-droop. Speech is clear. Results & Data Results & Data Vital Signs (Past 12 Hours) Vital Signs Temp Pulse Pulse Resp BP Pulse Ox O2 Del Method 07/19/25 15:17 36.6 C 86 20 129/73 92 Nasal Cannula 07/19/25 13:53 89 07/19/25 13:25 92 H 24 94 Nasal Cannula 07/19/25 11:16 36.7 C 80 20 128/71 91 Nasal Cannula 07/19/25 08:27 87 126/73 91 Nasal Cannula 07/19/25 08:14 81 147/67 H 96 Nasal Cannula 07/19/25 08:03 36.4 C L 74 20 136/80 92 Nasal Cannula 07/19/25 08:00 Nasal Cannula 07/19/25 07:02 73 18 95 Nasal Cannula 07/19/25 06:45 75 O2 Flow Rate 07/19/25 15:17 2 07/19/25 13:53 07/19/25 13:25 2 07/19/25 11:16 2 07/19/25 08:27 2 07/19/25 08:14 2 07/19/25 08:03 2 07/19/25 08:00 2 07/19/25 07:02 2 07/19/25 06:45 Laboratory Results 07/19/25 07/19/25 07/19/25 Unknown 07:19 05:49 WBC 9.67 RBC 4.69 Hgb 14.7 Hct 43.2 MCV 92.1 MCH 31.3 MCHC 34.0 RDW Std Deviation 42.7 RDW Coeff of Aries 12.7 Plt Count 184 MPV 11.2 Immature Gran % (Auto) 0.3 Neut % (Auto) 90.6 Lymph % (Auto) 7.3 [place] % (Auto) 1.7 Eos % (Auto) 0.0 Baso % (Auto) 0.1 Neut # (Auto) 8.76 H Lymph # (Auto) 0.71 L [place] # (Auto) 0.16 Eos # (Auto) 0.00 Baso # (Auto) 0.01 Immature Gran # (Auto) 0.03 Sodium 140 Potassium 4.3 Chloride 102 Carbon Dioxide 31 Anion Gap 7 BUN 16 Creatinine 0.65 Est Cr Clr Drug Dosing 38.2 eGFR 86.23 BUN/Creatinine Ratio 24.6 H Glucose 151 H Calcium 10.1 Phosphorus 3.1 Magnesium 2.3 Troponin I High Sens 29.0 H D Urine Color Yellow Urine Appearance Clear Urine pH 6.0 Ur Specific [place] 1.042 H Urine Protein Negative Urine Glucose (UA) Negative Urine Ketones Negative Urine Blood Negative Urine Nitrite Negative Urine Bilirubin Negative Urine Urobilinogen Negative Ur Leukocyte Esterase Negative Urine Comment Adenovirus (PCR) Not Detected B. pertussis DNA (PCR) Not Detected B.parapertussis DNA PCR Not Detected C. pneumoniae DNA (PCR) Not Detected Coronavirus OC43 (PCR) Not Detected Coronavirus HKU1 (PCR) Not Detected Coronavirus 229E (PCR) Not Detected SARS-CoV-2 (PCR) Not Detected Coronavirus NL63 (PCR) Not Detected Human Metapneumovir PCR Not Detected Influenza Type A (PCR) Not Detected Influenza Type B (PCR) Not Detected M. pneumoniae (PCR) Not Detected Parainfluenza 1 (PCR) Not Detected Parainfluenza 2 (PCR) Not Detected Parainfluenza 3 (PCR) Not Detected Parainfluenza 4 (PCR) Not Detected RSV (PCR) Not Detected Entero/Rhino (PCR) Not Detected 07/18/25 07/18/25 21:38 15:49 WBC RBC Hgb Hct MCV MCH MCHC RDW Std Deviation RDW Coeff of Aries Plt Count MPV Immature Gran % (Auto) Neut % (Auto) Lymph % (Auto) [place] % (Auto) Eos % (Auto) Baso % (Auto) Neut # (Auto) Lymph # (Auto) [place] # (Auto) Eos # (Auto) Baso # (Auto) Immature Gran # (Auto) Sodium Potassium Chloride Carbon Dioxide Anion Gap BUN Creatinine Est Cr Clr Drug Dosing eGFR BUN/Creatinine Ratio Glucose Calcium Phosphorus Magnesium Troponin I High Sens 63.3 H* 62.5 H* D Urine Color Urine Appearance Urine pH Ur Specific [place] Urine Protein Urine Glucose (UA) Urine Ketones Urine Blood Urine Nitrite Urine Bilirubin Urine Urobilinogen Ur Leukocyte Esterase Urine Comment Adenovirus (PCR) B. pertussis DNA (PCR) B.parapertussis DNA PCR C. pneumoniae DNA (PCR) Coronavirus OC43 (PCR) Coronavirus HKU1 (PCR) Coronavirus 229E (PCR) SARS-CoV-2 (PCR) Coronavirus NL63 (PCR) Human Metapneumovir PCR Influenza Type A (PCR) Influenza Type B (PCR) M. pneumoniae (PCR) Parainfluenza 1 (PCR) Parainfluenza 2 (PCR) Parainfluenza 3 (PCR) Parainfluenza 4 (PCR) RSV (PCR) Entero/Rhino (PCR) Diagnostic Findings Chest CTA 07/18/25 16:50 Clinical history: Rule out pulmonary embolism Technique: Axial computed tomography images were obtained of the chest after the administration of intravenous contrast according to the CT angiogram protocol Comparison is made to the prior CT dated 05/02/2024 Findings: There is no definite sign of pulmonary embolism. There is severe emphysema. There is mild atelectasis or scar in the lingula and left lower lobe. There is a small calcified granuloma in the right upper lobe anterior segment. There is no pleural effusion or pneumothorax. There is no sign of pulmonary fibrosis or other diffuse interstitial process. No endobronchial lesion is seen There is no mediastinal, hilar, or axillary adenopathy. The thoracic aorta appears unremarkable with no sign of aneurysm or dissection. 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 There is no pericardial effusion. There is coronary atherosclerosis The visualized upper abdomen appears unremarkable. No fracture is seen. No focal osseous lesion is evident Impression: 1. No definite sign of pulmonary embolism 2. Emphysema Electronically signed by Eh Cason 07-18-2025 6:58 PM Medications Administered Home Medications Medication Instructions Recorded Confirmed Last Taken fluticasone fur. 100 mcg-umeclid 1 inh inhalation DAILY 05/01/24 07/18/25 07/17/25 62.5 mcg-vilant 25 mcg inhalat.powder (Trelegy Ellipta) levalbuterol tartrate 45 1 puff inhalation DAILY PRN 05/01/24 07/18/25 07/18/25 mcg/actuation aerosol inhaler Shortness Of Breath Or Wheezing rosuvastatin 20 mg tablet 20 mg PO HS 05/01/24 07/18/25 07/17/25 aspirin 81 mg chewable tablet 81 mg PO DAILY PRN CHEST 07/18/25 07/18/25 07/18/25 PAIN/PALPATATIONS cholecalciferol (vitamin D3) 25 25 mcg PO DAILY 07/18/25 07/18/25 07/18/25 mcg (1,000 unit) capsule (Vitamin D3) ipratropium 0.5 mg-albuterol 3 mg 3 ml inhalation DIRECTED PRN 07/18/25 07/18/25 07/18/25 (2.5 mg base)/3 mL nebulization Shortness Of Breath Or Wheezing soln lisinopril 5 mg tablet 5 mg PO DAILY 07/18/25 07/18/25 07/17/25 montelukast 10 mg tablet 10 mg PO DAILY PRN Congestion 07/18/25 07/18/25 Unknown nitroglycerin 0.4 mg sublingual 0.4 mg sublingual DIRECTED PRN 07/18/25 07/18/25 Unknown tablet Chest Pain Active Medications Generic Name Dose Route Start Last Admin Trade Name Freq PRN Reason Stop Dose Admin Albuterol 3 ml 07/19/25 07:00 07/19/25 13:25 Albut/Ipratrop 3mg/0.5mg Neb 3 Ml Vial INH 08/18/25 06:59 3 ml Q6R NALDO Administration Protocol Fluticasone Furoate 1 puffs 07/18/25 21:00 07/19/25 08:00 Fluticasone Furoate 100mcg 14 Puffs/Inhaler INH 08/17/25 20:59 1 puffs DAILY NALDO Administration Protocol Heparin Sodium (Porcine) 5,000 units 07/18/25 21:00 07/19/25 08:00 Heparin Sod 5,000 Unit/0.5 Ml Vial SQ 08/17/25 20:59 5,000 units Q12 NALDO Administration Hydroxyzine HCl 10 mg 07/19/25 08:24 07/19/25 09:35 Hydroxyzine Hcl 10 Mg Tab PO 08/18/25 08:23 10 mg Q8H PRN Administration Anxiety Methylprednisolone 40 mg/ 0.64 mls @ 1.5 mls/min 07/18/25 21:00 07/19/25 08:00 Syringe IV 08/17/25 20:59 1.5 mls/min BID NALDO Administration Lisinopril 5 mg 07/19/25 09:00 07/19/25 08:00 Lisinopril 5 Mg Tab PO 08/18/25 08:59 5 mg DAILY NALDO Administration Nitroglycerin 0.4 mg 07/18/25 20:40 07/19/25 08:15 Nitroglycerin Sl 0.4 Mg/Tab Tab SL 08/17/25 20:39 0.4 mg Q5M PRN Administration Chest Pain Rosuvastatin Calcium 20 mg 07/18/25 21:00 07/18/25 21:34 Rosuvastatin Calcium 20 Mg Tab PO 08/17/25 20:59 20 mg HS NALDO Administration Umeclidinium/Vilanterol 1 puffs 07/18/25 21:00 07/19/25 08:00 Umeclidinium/Vilanterol 62.5/25mcg 7 Puffs/Inhaler INH 08/17/25 20:59 1 puffs DAILY NALDO Administration Protocol Vitamin D 25 mcg 07/19/25 09:00 07/19/25 08:00 Cholecalciferol 25 Mcg (1000 Units) Tab PO 08/18/25 08:59 25 mcg DAILY NALDO Administration PG Care Time/CCT Total # of Minutes Spent Total Time Spent with Patient: Total time spent is greater than 50% in coordination of care (as documented) at patient's floor/unit and/or counseling patient: 65 minutes Coding Level of Care Code 55722 IN/OBS CONSULT LVL 4,60M Diagnoses COPD with exacerbation J44.1 End stage chronic obstructive pulmonary disease J44.9 Pulmonary cachexia due to chronic obstructive pulmonary disease R64; J44.9 Chronic hypoxic respiratory failure, on home oxygen therapy J96.11; Z99.81 Chronic hypercapnic respiratory failure J96.12 Time Spent (min) 65
[2025-07-20 07:54] LABS: Hematocrit (blood only) 40.8 % (37.0-47.0); Hemoglobin 13.6 g/dL (12.0-16.0); Mean Corpuscular Hemoglobin 30.6 pg (25.0-34.0); Mean Corpuscular Volume 91.9 fL (80.0-100.0); Platelet Count 170 K/uL (130-400); RDW Standard Deviation 43.2 fL (36.4-46.3); Red Blood Count 4.44 M/uL (4.20-5.40); White Blood Count 16.57 K/ul (4.8-10.8)
[2025-07-20 08:21] LABS: Anion Gap 7.0 (3-11); Blood Urea Nitrogen 28.0 mg/dl (6-23); Calcium 9.6 mg/dl (8.6-10.3); Carbon Dioxide 28.0 mmol/L (21-32); Chloride 104.0 mmol/L (98-107); Cholesterol 158.0 mg/dl (0-200); Creatinine Clr Calc Pharmacy 29.2 ml/min; Glucose 185.0 mg/dl (70-99(Fasting)); HDL Cholesterol 75.0 mg/dl; Potassium 4.3 mmol/L (3.5-5.1); Sodium 139.0 mmol/L (136-145); Triglycerides 87.0 mg/dl (0-150)
[2025-07-20] MEDS: PNEUMOCOCCAL VACCINE (PCV20) 20-VAL CONJ-DIP CRM/PF 0.5 ML SYR IM ONE (09:08)
[2025-07-20] MEDS: INFLUENZA VACC TS2025-26(65y+)/PF (IIV3) 0.5mL Syr IM ONE (09:09)
[2025-07-20] MEDS ORDERED: POLYETHYLENE (MIRALAX) 17 GM PACK PO PRN (10:07)
[2025-07-20] MEDS: DOCUSATE SODIUM 100 MG CAP PO SCH (11:06)
[2025-07-20] MEDS: LEVALBUTEROL TARTRATE 15 GM HFA.AER.AD INH PRN (11:25)
--- NOTE | 2025-07-20 12:37 | Hospitalist Progress Note ---
Date of Service July 20, 2025 Assessment & Plan (1) COPD with exacerbation: Plan: Acute COPD Exacerbation --Chest CTA:No definite sign of pulmonary embolism. Emphysema - BioFire negative - Procalcitonin normal Continue IV Solu-Medrol, nebs Xopenex as needed Continue supplemental oxygen to keep saturations 88 to 92% Appreciate pulmonology input Continue BiPAP at bedtime and as needed Will obtain nocturnal oximetry and ABG to check for qualification of BiPAP at home Needs follow-up with pulmonology on discharge Leukocytosis due to steroids (2) Elevated troponin: Plan: NSTEMI type II [place] PACs --Palpitations likely due to above --ECHO pending --Lipid Panel: Within normal limits Troponin trended down Appreciate cardiology input Needs follow-up with cardiology on discharge Monitor and replete electrolytes as needed (3) Anxiety: Plan: Not been taking any medications for anxiety Will try hydroxyzine and try to avoid benzodiazepines Monitor (4) HTN (hypertension): Plan: Continue lisinopril BP Elevated likely due to steroids Will increase lisinopril to 10 mg daily Monitor and adjust medications as needed Prediabetes Hyperglycemia likely due to steroids Update HbA1c (5) Severe malnutrition: Plan: Nutritional assessment (6) HLD (hyperlipidemia): Plan: Continue statin DVT Px: SQ Heparin CODE STATUS Full Code Admission and Anticipated Discharge Date Admission Date: July 18, 2025 Subjective Patient is seen and examined at bedside Subjectively feels better today Less dyspnea, palpitations Chest tightness improving Discussed with pulmonology today Family at bedside No significant cough today Was able to tolerate BiPAP overnight Review of Systems Review of Systems: All systems reviewed & are unremarkable except as noted in Subjective Physical Exam Physical Exam: Physical Exam: Vitals signs as noted above General Appearance:Thin, frail, Elderly, no apparent distress Head: normocephalic, Atraumatic Eyes: normal inspection, EOMI Neck: supple, Trachea midline Respiratory/Chest: Diminished breath sounds, wheezes, mild accessory muscle use Cardiovascular: S1, S2, No murmur Abdomen/GI:Soft, Non tender, Bowel sounds present Extremities/Musculoskeletal:normal inspection, no edema Neurologic/Psych:AAOX3, grossly no focal neurological deficits Skin: normal color, warm Results & Data Results & Data Vital Signs (Past 12 Hours) Vital Signs Temp Pulse Pulse Resp BP BP Pulse Ox 07/20/25 11:44 36.9 C 95 H 25 H 165/80 H 91 07/20/25 07:25 68 18 98 07/20/25 07:00 36.8 C 73 18 129/73 96 07/20/25 06:52 70 07/20/25 03:33 36.6 C 83 18 140/77 93 07/20/25 02:12 83 15 94 07/20/25 01:39 83 17 93 O2 Del Method O2 Flow Rate 07/20/25 11:44 Nasal Cannula 2 07/20/25 07:25 Nasal Cannula 2 07/20/25 07:00 Nasal Cannula 2 07/20/25 06:52 07/20/25 03:33 Nasal Cannula 2 07/20/25 02:12 2 07/20/25 01:39 2 Laboratory Results Short CBC 07/20/25 Range/Units 07:29 WBC 16.57 H (4.8-10.8) K/ul Hgb 13.6 (12.0-16.0) g/dL Hct 40.8 (37.0-47.0) % Plt Count 170 (130-400) K/uL BMP 07/20/25 07:29 Sodium 139 Potassium 4.3 Chloride 104 Carbon Dioxide 28 BUN 28 H Creatinine 0.85 Glucose 185 H Calcium 9.6
[2025-07-20] MEDS: ASPIRIN 81 MG CHEW PO PRN (13:54)
--- NOTE | 2025-07-20 15:45 | XCELERA ---
[id number] \\[email or web address]\[id number]
--- NOTE | 2025-07-20 16:33 | Pulmonology Progress Note ---
Date of Service July 20, 2025 Assessment & Plan (1) COPD with exacerbation: Plan: * Unlikely infectious * Adding Azithromycin was considered, but the patient has prolonged QR-interval (2) End stage chronic obstructive pulmonary disease: Plan: * Continue home bronchodilators (3) Pulmonary cachexia due to chronic obstructive pulmonary disease: Plan: * Patient counseled regarding need to improve nutrition * Consider Nutrition consult for Pulmonary Cachexia (4) Chronic hypoxic respiratory failure, on home oxygen therapy: Plan: * Continue home Oxygen (5) Chronic hypercapnic respiratory failure: Plan: * This can be contributing to patient's dyspnea and anxiety * Moderate tolerance of BiPAP. Discussed with Dr. Davalos arranging for BiPAP for home. * Patient counseled regarding potential benefit from BiPAP, and she is willing to try it. Admission and Anticipated Discharge Date Admission Date: July 18, 2025 Subjective The patient is a very pleasant 85-year-old male who presented to the ED with hemoptysis. He reported a several-day history of cough and worsening shortness of breath, requiring continuous supplemental oxygen, whereas he typically used oxygen only at night. Over the preceding 24 hours, he began to notice blood in his sputum. CXR in the ED was interpreted as being stable when compared to study from January 21, 2025. However, chest CTA was compared to study from January 11, 2025 and was interpreted as showing mild RML and RLL ground-glass opacities, increase in small bilateral pleural effusions, and slight increase in several LLL densities. The patient was treated with IV antibiotics initially, but antibiotics were later held as his presentation was not suggestive of bacterial pneumonia. He was started on IV Lasix for volume overload, prednisone for reactive airway disease, and Duoneb, with continuation of his home inhalers and Roflumilast. Echocardiogram was mostly unremarkable except for septal motion abnormality, moderate Aortic stenosis, and slight increase in RVSP consistent with PASP of around 45 mmHg. Pulmonary consultation was requested due to concern for recurrent malignancy versus worsening radiation pneumonitis. 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 The patient had a prior admission in January 2025 for pneumonia. There is history of Pseudomonas aeruginosa growing from sputum back in March 2022 but not since then (at least not in our system). Note from 07/19/2025: The patient continues to report dyspnea on minimal exertion. Her dyspnea at rest is slightly better than at time of admission. She hasn't been able to expectorate any sputum. Note from 07/20/2025: The patient used BiPAP until 3 am last night. She feels some better today in terms of her dyspnea. Long and detailed discussion with the patient in the presence of Dr. Davalos and the patient's . I recommended for the patient to use BiPAP as much as tolerable during sleep and naps, and PRN during the daytime. She had concerns about her difficulty with cooking. I explained to her that with her current level of exertional intolerance it may not be possible for her to keep up with house work, and that she may need to arrange for help, accordingly. Review of Systems Review of Systems: All systems reviewed & are unremarkable except as noted in HPI & below Physical Exam Physical Exam: General: In no acute distress, using Oxygenvia nasal cannula. Cachectic. Respiratory: Diffusely decreased breath sounds, no wheezing or crackles. Chronic use of accessory muscles but no prolonged exhalation. Cardiac: Distant sounds, regular rhythm, no murmurs, no gallops, no rubs; could not appreciate JV pulse elevation. GI: Soft, nontender. Extremities: Mild clubbing,no cyanosis,no edema. Neuro: No gross motor deficits. Seems appropriate. No facial-droop. Speech is clear. Results & Data Results & Data Vital Signs (Past 12 Hours) Vital Signs Temp Pulse Pulse Resp BP BP Pulse Ox 07/20/25 15:24 36.4 C L 106 H 30 H 170/79 H 93 07/20/25 14:18 100 H 07/20/25 13:11 102 H 22 93 07/20/25 12:42 36.8 C 84 18 124/72 95 07/20/25 12:40 07/20/25 11:44 36.9 C 95 H 25 H 165/80 H 91 07/20/25 07:25 68 18 98 07/20/25 07:00 36.8 C 73 18 129/73 96 07/20/25 06:52 70 O2 Del Method O2 Flow Rate 07/20/25 15:24 Nasal Cannula 2 07/20/25 14:18 07/20/25 13:11 Nasal Cannula 2 07/20/25 12:42 Nasal Cannula 2 07/20/25 12:40 Nasal Cannula 2 07/20/25 11:44 Nasal Cannula 2 07/20/25 07:25 Nasal Cannula 2 07/20/25 07:00 Nasal Cannula 2 07/20/25 06:52 Laboratory Results 07/20/25 07:29 WBC 16.57 H RBC 4.44 Hgb 13.6 Hct 40.8 MCV 91.9 MCH 30.6 MCHC 33.3 RDW Std Deviation 43.2 RDW Coeff of Aries 13.0 Plt Count 170 MPV 10.9 Sodium 139 Potassium 4.3 Chloride 104 Carbon Dioxide 28 Anion Gap 7 BUN 28 H Creatinine 0.85 Est Cr Clr Drug Dosing 29.2 eGFR 67.10 BUN/Creatinine Ratio 32.9 H Glucose 185 H Calcium 9.6 Triglycerides 87 Cholesterol 158 LDL Cholesterol, Calc 66 VLDL Cholesterol, Calc 17 HDL Cholesterol 75 Cholesterol/HDL Ratio 2.1 Procalcitonin 0.05 Medications Administered Home Medications Medication Instructions Recorded Confirmed Last Taken fluticasone fur. 100 mcg-umeclid 1 inh inhalation DAILY 05/01/24 07/18/25 07/17/25 62.5 mcg-vilant 25 mcg inhalat.powder (Trelegy Ellipta) levalbuterol tartrate 45 1 puff inhalation DAILY PRN 05/01/24 07/18/25 07/18/25 mcg/actuation aerosol inhaler Shortness Of Breath Or Wheezing rosuvastatin 20 mg tablet 20 mg PO HS 05/01/24 07/18/25 07/17/25 aspirin 81 mg chewable tablet 81 mg PO DAILY PRN CHEST 07/18/25 07/18/25 07/18/25 PAIN/PALPATATIONS cholecalciferol (vitamin D3) 25 25 mcg PO DAILY 07/18/25 07/18/25 07/18/25 mcg (1,000 unit) capsule (Vitamin D3) ipratropium 0.5 mg-albuterol 3 mg 3 ml inhalation DIRECTED PRN 07/18/25 07/18/25 07/18/25 (2.5 mg base)/3 mL nebulization Shortness Of Breath Or Wheezing soln lisinopril 5 mg tablet 5 mg PO DAILY 07/18/25 07/18/25 07/17/25 montelukast 10 mg tablet 10 mg PO DAILY PRN Congestion 07/18/25 07/18/25 Unknown nitroglycerin 0.4 mg sublingual 0.4 mg sublingual DIRECTED PRN 07/18/25 07/18/25 Unknown tablet Chest Pain Active Medications Generic Name Dose Route Start Last Admin Trade Name Josuéq PRN Reason Stop Dose Admin Albuterol 3 ml 07/19/25 07:00 07/20/25 13:11 Albut/Ipratrop 3mg/0.5mg Neb 3 Ml Vial INH 08/18/25 06:59 3 ml Q6R NALDO Administration Protocol Aspirin 81 mg 07/18/25 20:40 07/20/25 13:54 Aspirin 81 Mg Chew PO 08/17/25 20:39 81 mg DAILY PRN Administration CHEST PAIN/PALPATATIONS Docusate Sodium 100 mg 07/20/25 10:15 07/20/25 11:06 Docusate Sodium 100 Mg Cap PO 08/19/25 10:14 100 mg BID NALDO Administration Fluticasone Furoate 1 puffs 07/18/25 21:00 07/20/25 08:59 Fluticasone Furoate 100mcg 14 Puffs/Inhaler INH 08/17/25 20:59 1 puffs DAILY NALDO Administration Protocol Heparin Sodium (Porcine) 5,000 units 07/18/25 21:00 07/20/25 09:01 Heparin Sod 5,000 Unit/0.5 Ml Vial SQ 08/17/25 20:59 5,000 units Q12 NALDO Administration Hydroxyzine HCl 10 mg 07/19/25 08:24 07/20/25 13:57 Hydroxyzine Hcl 10 Mg Tab PO 08/18/25 08:23 10 mg Q8H PRN Administration Anxiety Methylprednisolone 40 mg/ 0.64 mls @ 1.5 mls/min 07/18/25 21:00 07/20/25 09:00 Syringe IV 08/17/25 20:59 1.5 mls/min BID NALDO Administration Levalbuterol HCl 1 puffs 07/18/25 20:40 07/20/25 11:25 Levalbuterol Tartrate 15 Gm Hfa.Aer.Ad INH 08/17/25 20:39 1 puffs DAILY PRN Administration Shortness Of Breath Or Wheezing Nitroglycerin 0.4 mg 07/18/25 20:40 07/19/25 08:15 Nitroglycerin Sl 0.4 Mg/Tab Tab SL 08/17/25 20:39 0.4 mg Q5M PRN Administration Chest Pain Rosuvastatin Calcium 20 mg 07/18/25 21:00 07/19/25 20:33 Rosuvastatin Calcium 20 Mg Tab PO 08/17/25 20:59 20 mg HS NALDO Administration Umeclidinium/Vilanterol 1 puffs 07/18/25 21:00 07/20/25 09:00 Umeclidinium/Vilanterol 62.5/25mcg 7 Puffs/Inhaler INH 08/17/25 20:59 1 puffs DAILY NALDO Administration Protocol Vitamin D 25 mcg 07/19/25 09:00 07/20/25 09:02 Cholecalciferol 25 Mcg (1000 Units) Tab PO 08/18/25 08:59 25 mcg DAILY NALDO Administration PG Care Time/CCT Total # of Minutes Spent Total Time Spent with Patient: Total time spent is greater than 50% in coordination of care (as documented) at patient's floor/unit and/or counseling patient: 40 minutes Coding Level of Care Code 62034 SUB INP/OBS CARE 2/35MIN Diagnoses COPD with exacerbation J44.1 End stage chronic obstructive pulmonary disease J44.9 Pulmonary cachexia due to chronic obstructive pulmonary disease R64; J44.9 Chronic hypoxic respiratory failure, on home oxygen therapy J96.11; Z99.81 Chronic hypercapnic respiratory failure J96.12 Time Spent (min) 40
[2025-07-21 05:52] LABS: HCO3 ABG 31 mmol/L (19-24); Oxygen Saturation ABG 97.2 % (90-95); PCO2 ABG 43 mmHg (35-46); PO2 ABG 80 mmHg (80-95)
[2025-07-21 05:53] LABS: Allen Test Pos (Pos)
[2025-07-21 07:27] LABS: Hematocrit (blood only) 43.2 % (37.0-47.0); Hemoglobin 14.5 g/dL (12.0-16.0); Mean Corpuscular Hemoglobin 31.2 pg (25.0-34.0); Mean Corpuscular Volume 92.9 fL (80.0-100.0); Platelet Count 160 K/uL (130-400); RDW Standard Deviation 44.5 fL (36.4-46.3); Red Blood Count 4.65 M/uL (4.20-5.40); White Blood Count 12.75 K/ul (4.8-10.8)
[2025-07-21 07:55] LABS: Anion Gap 7.0 (3-11); Blood Urea Nitrogen 29.0 mg/dl (6-23); Calcium 9.6 mg/dl (8.6-10.3); Carbon Dioxide 30.0 mmol/L (21-32); Chloride 103.0 mmol/L (98-107); Creatinine Clr Calc Pharmacy 31.1 ml/min; Glucose 198.0 mg/dl (70-99(Fasting)); Magnesium 2.4 mg/dl (1.7-2.4); Potassium 4.6 mmol/L (3.5-5.1); Sodium 140.0 mmol/L (136-145)
[2025-07-21 08:19] LABS: Hemoglobin A1C 5.9 % (4.5-5.6)
--- NOTE | 2025-07-21 08:20 | Electrocardiogram Report ---
Test Reason : Blood Pressure : */* mmHG Vent. Rate : 109 BPM Atrial Rate : 109 BPM P-R Int : 124 ms QRS Dur : 110 ms QT Int : 346 ms P-R-T Axes : 69 41 134 degrees QTcB Int : 465 ms Poor data quality, interpretation may be adversely affected Sinus tachycardia Left ventricular hypertrophy with repolarization abnormality ( Billy product ) Abnormal ECG When compared with ECG of 03-May-2024 04:45, Vent. rate has increased by 37 bpm Questionable change in QRS axis Confirmed by Aaron Frank ([id number]) on 07/21/2025 8:20:45 AM Referred By: REFERRED SELF Confirmed By: Aaron Frank
--- NOTE | 2025-07-21 08:27 | Electrocardiogram Report ---
Test Reason : Blood Pressure : */* mmHG Vent. Rate : 95 BPM Atrial Rate : 95 BPM P-R Int : 132 ms QRS Dur : 112 ms QT Int : 388 ms P-R-T Axes : 74 -27 134 degrees QTcB Int : 487 ms Sinus rhythm Premature atrial complexes Left ventricular hypertrophy with repolarization abnormality ( Zillah product ) Abnormal ECG When compared with ECG of 18-Jul-2025 13:57, (unconfirmed) QRS axis Shifted left T wave inversion no longer evident in Inferior leads Confirmed by Aaron Frank ([id number]) on 07/21/2025 8:27:24 AM Referred By: REFERRED SELF Confirmed By: Aaron Frank
--- NOTE | 2025-07-21 08:36 | Electrocardiogram Report ---
Test Reason : Blood Pressure : */* mmHG Vent. Rate : 70 BPM Atrial Rate : 70 BPM P-R Int : 130 ms QRS Dur : 116 ms QT Int : 434 ms P-R-T Axes : 79 -50 210 degrees QTcB Int : 468 ms Sinus rhythm with Premature atrial complexes Left axis deviation Left ventricular hypertrophy with QRS widening and repolarization abnormality ( Billy product ) Cannot rule out Septal infarct , age undetermined Abnormal ECG When compared with ECG of 18-Jul-2025 16:48, (unconfirmed) Premature atrial complexes are now Present T wave inversion now evident in Inferior leads Confirmed by Aaron Frank ([id number]) on 07/21/2025 8:36:24 AM Referred By: REFERRED SELF Confirmed By: Aaron Frank
--- NOTE | 2025-07-21 08:58 | Electrocardiogram Report ---
Test Reason : Blood Pressure : */* mmHG Vent. Rate : 95 BPM Atrial Rate : 95 BPM P-R Int : 126 ms QRS Dur : 112 ms QT Int : 384 ms P-R-T Axes : 93 -6 194 degrees QTcB Int : 482 ms Sinus rhythm with Premature atrial complexes Left ventricular hypertrophy with repolarization abnormality ( Billy product ) Abnormal ECG When compared with ECG of 19-Jul-2025 05:33, (unconfirmed) QRS axis Shifted right HR has increased Confirmed by Aaron Frank ([id number]) on 07/21/2025 8:58:37 AM Referred By: REFERRED SELF Confirmed By: Aaron Frank
[2025-07-21] MEDS: LORazepam Inj 0.5 MG in SYRINGE 0.25 ML IV ONE (12:37)
--- NOTE | 2025-07-21 15:20 | Hospitalist Progress Note ---
Date of Service July 21, 2025 Assessment & Plan (1) COPD with exacerbation: Plan: Acute COPD Exacerbation --Chest CTA:No definite sign of pulmonary embolism. Emphysema - BioFire negative - Procalcitonin normal Continue IV Solu-Medrol, nebs Xopenex as needed Continue supplemental oxygen to keep saturations 88 to 92% Appreciate pulmonology input Continue BiPAP at bedtime and as needed while hospitalized Nocturnal oximetry study, ABG reviewed. Patient does not qualify for BiPAP per pulmonology Needs follow-up with pulmonology on discharge Transition IV Solu-Medrol to prednisone tomorrow Plan to continue prednisone tapering course on discharge Plan to discharge in 1 to 2 days if patient continues to improve (2) Elevated troponin: Plan: NSTEMI type II MT PACs --Palpitations likely due to above --ECHO: Moderate concentric LVH. EF 45 to 50%. Mild hypokinesis of anterolateral wall from mid ventricle to apex. Right ventricle systolic pressure elevated at 30 to 40 mmHg. --Lipid Panel: Within normal limits Troponin trended down Appreciate cardiology input Needs follow-up with cardiology on discharge Monitor and replete electrolytes as needed Will defer to cardiology for further intervention/management (3) Anxiety: Plan: Not been taking any medications for anxiety Will try hydroxyzine and try to avoid benzodiazepines Monitor (4) HTN (hypertension): Plan: Continue lisinopril BP Elevated likely due to steroids Will increase lisinopril to 10 mg daily Monitor and adjust medications as needed Prediabetes Hyperglycemia likely due to steroids HbA1C:5.9 (5) Severe malnutrition: Plan: Nutritional assessment (6) HLD (hyperlipidemia): Plan: Continue statin DVT Px: SQ Heparin CODE STATUS Full Code Admission and Anticipated Discharge Date Admission Date: July 18, 2025 Subjective Patient is seen and examined at bedside States feeling better today Intermittently anxious Dyspnea slowly improving Discussed with pulmonology today Review of Systems Review of Systems: All systems reviewed & are unremarkable except as noted in Subjective Physical Exam Physical Exam: Physical Exam: Vitals signs as noted above General Appearance:Thin, frail, Elderly, no apparent distress Head: normocephalic, Atraumatic Eyes: normal inspection, EOMI Neck: supple, Trachea midline Respiratory/Chest: Diminished breath sounds, CTA, minimal accessory muscle use Cardiovascular: S1, S2, No murmur Abdomen/GI:Soft, Non tender, Bowel sounds present Extremities/Musculoskeletal:normal inspection, no edema Neurologic/Psych:AAOX3, grossly no focal neurological deficits Skin: normal color, warm Results & Data Results & Data Vital Signs (Past 12 Hours) Vital Signs Temp Pulse Pulse Resp BP BP Pulse Ox 07/21/25 13:09 90 20 96 07/21/25 12:06 96 H 186/87 H 07/21/25 11:55 36.7 C 118 H 25 H 184/101 H 91 07/21/25 10:00 07/21/25 08:24 36.5 C 78 20 168/78 H 91 07/21/25 07:19 89 16 94 07/21/25 06:45 100 H 07/21/25 03:37 36.5 C 73 18 150/81 H 94 O2 Del Method O2 Flow Rate 07/21/25 13:09 Nasal Cannula 2 07/21/25 12:06 07/21/25 11:55 Nasal Cannula 2 07/21/25 10:00 Nasal Cannula 2 07/21/25 08:24 Nasal Cannula 2 07/21/25 07:19 Nasal Cannula 2 07/21/25 06:45 07/21/25 03:37 Nasal Cannula 2 Laboratory Results Short CBC 07/21/25 Range/Units 06:58 WBC 12.75 H (4.8-10.8) K/ul Hgb 14.5 (12.0-16.0) g/dL Hct 43.2 (37.0-47.0) % Plt Count 160 (130-400) K/uL BMP 07/21/25 06:58 Sodium 140 Potassium 4.6 Chloride 103 Carbon Dioxide 30 BUN 29 H Creatinine 0.83 Glucose 198 H Calcium 9.6
[2025-07-22] MEDS: predniSONE 20 MG TAB PO SCH (09:55)
[2025-07-22] MEDS: METOPROLOL SUCC 25MG EXT REL TAB PO SCH ×2 (13:50→20:52)
--- NOTE | 2025-07-22 14:26 | Hospitalist Progress Note ---
Date of Service July 22, 2025 Assessment & Plan (1) COPD with exacerbation: Plan: Acute COPD Exacerbation Prior tobacco abuse --Chest CTA:No definite sign of pulmonary embolism. Emphysema - BioFire negative - Procalcitonin normal Continue IV Solu-Medrol>> transition to prednisone Continue nebs Xopenex as needed Continue supplemental oxygen Appreciate pulmonology input Nocturnal oximetry study, ABG reviewed. Patient does not qualify for BiPAP per pulmonology Needs follow-up with pulmonology on discharge Slowly improving (2) Elevated troponin: Plan: NSTEMI type II MA PACs --Palpitations likely due to above --ECHO: Moderate concentric LVH. EF 45 to 50%. Mild hypokinesis of anterolateral wall from mid ventricle to apex. Right ventricle systolic pressur e elevated at 30 to 40 mmHg. --Lipid Panel: Within normal limits Troponin trended down Appreciate cardiology input: Discussed with Dr. Frank on 07/21/2025: Recommends no further intervention Monitor and replete electrolytes as needed Advised to follow-up with cardiology as outpatient (3) Anxiety: Plan: Not been taking any medications for anxiety Will try hydroxyzine and try to avoid benzodiazepines Monitor Symptomatic PACs Started on low-dose metoprolol Anxiety contributing as well Monitor (4) HTN (hypertension): Plan: Continue lisinopril BP Elevated likely due to steroids Increased lisinopril to 10 mg daily Monitor and adjust medications as needed Prediabetes Hyperglycemia likely due to steroids HbA1C:5.9 (5) Severe malnutrition: Plan: Nutritional assessment (6) HLD (hyperlipidemia): Plan: Continue statin DVT Px: SQ Heparin CODE STATUS Full Code Admission and Anticipated Discharge Date Admission Date: July 18, 2025 Subjective Patient is seen and examined at bedside States that she feels not ready for discharge today Less dyspnea today Denies any significant cough Reports intermittent palpitations Chest tightness resolved Discussed with pulmonology today Saturating well on 2 L supplemental oxygen Review of Systems Review of Systems: All systems reviewed & are unremarkable except as noted in Subjective Physical Exam Physical Exam: Physical Exam: Vitals signs as noted above General Appearance:Thin, frail, Elderly, no apparent distress Head: normocephalic, Atraumatic Eyes: normal inspection, EOMI Neck: supple, Trachea midline Respiratory/Chest: Diminished breath sounds, CTA, minimal accessory muscle use Cardiovascular: S1, S2, No murmur Abdomen/GI:Soft, Non tender, Bowel sounds present Extremities/Musculoskeletal:normal inspection, no edema Neurologic/Psych:AAOX3, grossly no focal neurological deficits Skin: normal color, warm Results & Data Results & Data Vital Signs (Past 12 Hours) Vital Signs Temp Pulse Resp BP BP Pulse Ox O2 Del Method 07/22/25 13:13 97 H 24 94 Nasal Cannula 07/22/25 11:56 36.6 C 97 H 24 151/77 H 92 Nasal Cannula 07/22/25 08:25 36.8 C 91 H 20 153/80 H 94 Room Air 07/22/25 07:08 84 20 96 Nasal Cannula 07/22/25 03:55 36.3 C L 82 20 137/74 96 Room Air O2 Flow Rate 07/22/25 13:13 2 07/22/25 11:56 07/22/25 08:25 07/22/25 07:08 2 07/22/25 03:55
[2025-07-23 06:55] LABS: Hematocrit (blood only) 46.5 % (37.0-47.0); Hemoglobin 15.4 g/dL (12.0-16.0); Mean Corpuscular Hemoglobin 30.4 pg (25.0-34.0); Mean Corpuscular Volume 91.7 fL (80.0-100.0); Platelet Count 214 K/uL (130-400); RDW Standard Deviation 44.8 fL (36.4-46.3); Red Blood Count 5.07 M/uL (4.20-5.40); White Blood Count 13.60 K/ul (4.8-10.8)
[2025-07-23 07:16] LABS: Anion Gap 7.0 (3-11); Blood Urea Nitrogen 33.0 mg/dl (6-23); Calcium 9.5 mg/dl (8.6-10.3); Carbon Dioxide 32.0 mmol/L (21-32); Chloride 99.0 mmol/L (98-107); Creatinine Clr Calc Pharmacy 38.0 ml/min; Glucose 128.0 mg/dl (70-99(Fasting)); Potassium 4.4 mmol/L (3.5-5.1); Sodium 138.0 mmol/L (136-145)
--- NOTE | 2025-07-23 11:44 | Electrocardiogram Report ---
Test Reason : Blood Pressure : */* mmHG Vent. Rate : 94 BPM Atrial Rate : 94 BPM P-R Int : 114 ms QRS Dur : 108 ms QT Int : 354 ms P-R-T Axes : 70 -18 179 degrees QTcB Int : 442 ms Sinus rhythm with sinus arrhythmia with occasional Premature ventricular complexes Minimal voltage criteria for LVH, may be normal variant Septal infarct , age undetermined Abnormal ECG When compared with ECG of 19-Jul-2025 08:24, Premature ventricular complexes are now Present Aberrant conduction is no longer Present ST no longer depressed in Lateral leads Nonspecific T wave abnormality, improved in Inferior leads T wave inversion less evident in Lateral leads Confirmed by Evelio Garcia ([id number]) on 07/23/2025 11:43:52 AM Referred By: REFERRED SELF Confirmed By: Evelio Garcia
--- NOTE | 2025-07-23 12:17 | Hospitalist Progress Note ---
Date of Service July 23, 2025 Assessment & Plan (1) COPD with exacerbation: Plan: Acute COPD Exacerbation Prior tobacco abuse H/O End Stage COPD Prior tobacco use disorder --Chest CTA:No definite sign of pulmonary embolism. Emphysema - BioFire negative - Procalcitonin normal Continue IV Solu-Medrol>> transition to prednisone Continue nebs Xopenex as needed Continue supplemental oxygen Appreciate pulmonology input Nocturnal oximetry study, ABG reviewed. Patient does not qualify for BiPAP per pulmonology Needs follow-up with pulmonology on discharge Slowly improving Plan to be discharged home today after PT OT evaluation (2) Elevated troponin: Plan: NSTEMI type II [place] PACs --Palpitations likely due to above --ECHO: Moderate concentric LVH. EF 45 to 50%. Mild hypokinesis of anterolateral wall from mid ventricle to apex. Right ventricle systolic pressure elevated at 30 to 40 mmHg. --Lipid Panel: Within normal limits Troponin trended down Appreciate cardiology input: Discussed with Dr. Frank on 07/21/2025: Recommends no further intervention Monitor and replete electrolytes as needed Advised to follow-up with cardiology as outpatient (3) Anxiety: Plan: Not been taking any medications for anxiety Will try hydroxyzine and try to avoid benzodiazepines Monitor Symptomatic PACs/PVCs Started on metoprolol succinate 12.5 mg twice a day Anxiety contributing as well Monitor (4) HTN (hypertension): Plan: Continue lisinopril Also started on metoprolol as above Increased lisinopril to 10 mg daily for better control of blood pressure Monitor and adjust medications as needed Prediabetes Hyperglycemia likely due to steroids HbA1C:5.9 (5) Severe malnutrition: Plan: Nutritional assessment (6) HLD (hyperlipidemia): Plan: Continue statin DVT Px: SQ Heparin CODE STATUS Full Code Disposition Home with home health Admission and Anticipated Discharge Date Admission Date: July 18, 2025 Subjective Patient is seen and examined at bedside States feeling a lot better today Sitting in chair during my encounter Family at bedside Dyspnea continues to improve Denies any chest pain Still has some intermittent palpitations Denies any dizziness, nausea, vomiting, abdominal pain Saturating well on 2 L nasal cannula Review of Systems Review of Systems: All systems reviewed & are unremarkable except as noted in Subjective Physical Exam Physical Exam: Physical Exam: Vitals signs as noted above General Appearance:Thin, frail, Elderly, no apparent distress Head: normocephalic, Atraumatic Eyes: normal inspection, EOMI Neck: supple, Trachea midline Respiratory/Chest: Diminished breath sounds, CTA Cardiovascular: S1, S2, No murmur Abdomen/GI:Soft, Non tender, Bowel sounds present Extremities/Musculoskeletal:normal inspection, no edema Neurologic/Psych:AAOX3, grossly no focal neurological deficits Skin: normal color, warm Results & Data Results & Data Vital Signs (Past 12 Hours) Vital Signs Temp Pulse Resp BP Pulse Ox O2 Del Method O2 Flow Rate 07/23/25 08:09 36.8 C 98 H 20 174/76 H 94 Nasal Cannula 07/23/25 07:15 78 18 96 Nasal Cannula 2 07/23/25 04:15 36.4 C L 84 20 130/66 97 Nasal Cannula 3 07/23/25 00:19 80 18 96 Nasal Cannula 2 Laboratory Results Short CBC 07/23/25 Range/Units 06:08 WBC 13.60 H (4.8-10.8) K/ul Hgb 15.4 (12.0-16.0) g/dL Hct 46.5 (37.0-47.0) % Plt Count 214 (130-400) K/uL BMP 07/23/25 06:08 Sodium 138 Potassium 4.4 Chloride 99 Carbon Dioxide 32 BUN 33 H Creatinine 0.68 Glucose 128 H Calcium 9.5
--- NOTE | 2025-07-23 17:05 | Discharge Summary ---
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 She denies any chest pain or palpitation or any swelling of the legs. denies any fever and/or chills, does not have any abdominal pain nausea or vomiting. She was noted to have acute exacerbation of COPD and needed to rule out pulmonary embolism. She received intravenous Solu-Medrol and nebuli zed bronchodilator and was admitted to medical telemetry unit for continuation of care. She also received oral dose of lorazepam for anxiety. She also complained that she has been losing weight along for a long time. She was explained that this is more likely her chronic respiratory failure and COPD. Admission Exam Per Admitting Provider Physical Exam: Lying in bed with moderate shortness of breath at rest Constitutional: + ill appearing and + thin Eyes: PERRL, conjunctivae normal, anicteric sclerae Neck: trachea midline, no thyromegaly Respiratory: + respiratory distress, + labored breath ing and + retractions Auscultation: lungs clear to auscultation bilaterally and + wheezes (Minimal wheezing bilaterally) Cardiovascular: Rate/Rhythm: regular rate and regular rhythm; not tachycardic Heart Sounds: normal S1 and normal S2; no murmur Extremities: no edema Gastrointestinal (Abdomen): Inspection/Auscultation: normal bowel sounds; abdomen not distended Percussion/Palpation: abdomen soft; abdomen nontender Musculoskeletal: Osteoarthritic changes but no acute arthritis involving any of the joint Skin: Scattered bruising generalized Neurologic: normal touch/pain/proprioception and moves all extremities; no focal motor deficits Lymphatic: no cervical or axillary lymphadenopathy Principal Diagnosis Acute COPD exacerbation Premature atrial and ventricular contractions Chronic respiratory failure with hypoxia Anxiety disorder Hypertension Discharge Data Allergies Allergy/AdvReac Type Severity Reaction Status Date / Time bee venom protein (honey bee) Allergy Intermediate EXTRA Verified 07/18/25 16:33 SWELLING AT SITES Consultations 07/18/25 17:10 ED Decision to Admit Stat 07/18/25 18:35 Consult Cardiology Routine 07/19/25 12:50 Consult Pulmonology Routine Procedures Performed Laboratory Results WBC 13.60 K/ul (4.8-10.8) H 07/23/25 06:08 RBC 5.07 M/uL (4.20-5.40) 07/23/25 06:08 Hgb 15.4 g/dL (12.0-16.0) 07/23/25 06:08 Hct 46.5 % (37.0-47.0) 07/23/25 06:08 MCV 91.7 fL (80.0-100.0) 07/23/25 06:08 MCH 30.4 pg (25.0-34.0) 07/23/25 06:08 MCHC 33.1 g/dL (32.0-36.0) 07/23/25 06:08 RDW Std Deviation 44.8 fL (36.4-46.3) 07/23/25 06:08 RDW Coeff of Aries 13.1 % (11.5-14.5) 07/23/25 06:08 Plt Count 214 K/uL (130-400) 07/23/25 06:08 MPV 10.8 fL (9.4-12.4) 07/23/25 06:08 Immature Gran % (Auto) 0.3 % 07/19/25 07:19 Neut % (Auto) 90.6 % 07/19/25 07:19 Lymph % (Auto) 7.3 % 07/19/25 07:19 [place] % (Auto) 1.7 % 07/19/25 07:19 Eos % (Auto) 0.0 % 07/19/25 07:19 Baso % (Auto) 0.1 % 07/19/25 07:19 Neut # (Auto) 8.76 K/uL (1.40-6.50) H 07/19/25 07:19 Lymph # (Auto) 0.71 K/uL (1.20-3.40) L 07/19/25 07:19 [place] # (Auto) 0.16 K/uL (0.11-0.59) 07/19/25 07:19 Eos # (Auto) 0.00 K/uL (0.00-0.50) 07/19/25 07:19 Baso # (Auto) 0.01 K/uL (0.00-0.20) 07/19/25 07:19 Immature Gran # (Auto) 0.03 K/uL (0.01-0.20) 07/19/25 07:19 ABG pH 7.46 (7.35-7.45) H 07/21/25 05:34 ABG pCO2 43 mmHg (35-46) 07/21/25 05:34 ABG pO2 80 mmHg (80-95) 07/21/25 05:34 ABG HCO3 31 mmol/L (19-24) H 07/21/25 05:34 ABG O2 Saturation 97.2 % (90-95) H 07/21/25 05:34 ABG Base Excess 6.0 mEq/L (-9-1.8) H 07/21/25 05:34 Yair Test Pos (Pos) 07/21/25 05:34 VBG pH 7.33 (7.36-7.41) L 07/18/25 14:04 VBG pCO2 63 mmHg (38-50) H 07/18/25 14:04 VBG pO2 51 mmHg 07/18/25 14:04 VBG HCO3 33 mmol/L 07/18/25 14:04 VBG O2 Saturation 77.8 % 07/18/25 14:04 VBG Base Excess 5.3 mEq/L 07/18/25 14:04 Oxygen Given 2L 07/21/25 05:34 Sodium 138 mmol/L (136-145) 07/23/25 06:08 Potassium 4.4 mmol/L (3.5-5.1) 07/23/25 06:08 Chloride 99 mmol/L (98-107) 07/23/25 06:08 Carbon Dioxide 32 mmol/L (21-32) 07/23/25 06:08 Anion Gap 7 (3-11) 07/23/25 06:08 BUN 33 mg/dl (6-23) H 07/23/25 06:08 Creatinine 0.68 mg/dl (0.6-1.2) 07/23/25 06:08 Est Cr Clr Drug Dosing 38.0 ml/min 07/23/25 06:08 eGFR 85.29 07/23/25 06:08 BUN/Creatinine Ratio 48.5 (10-20) H 07/23/25 06:08 Glucose 128 mg/dl (70-99(Fasting)) H 07/23/25 06:08 Estimat Average Glucose 123 mg/dl 07/21/25 06:58 Hemoglobin A1c 5.9 % (4.5-5.6) H 07/21/25 06:58 Calcium 9.5 mg/dl (8.6-10.3) 07/23/25 06:08 Phosphorus 3.1 mg/dl (2.5-4.9) 07/19/25 07:19 Magnesium 2.4 mg/dl (1.7-2.4) 07/21/25 06:58 Total Bilirubin 0.7 mg/dl (0.2-1.0) 07/18/25 14:04 AST 21 U/L (13-39) 07/18/25 14:04 ALT 12 U/L (7-52) 07/18/25 14:04 Alkaline Phosphatase 70 U/L (34-104) 07/18/25 14:04 Troponin I High Sens 29.0 pg/ml (0-14) H D 07/19/25 07:19 B-Natriuretic Peptide 86 pg/ml (0-100) 07/18/25 14:04 Total Protein 6.6 gm/dl (6.0-8.3) 07/18/25 14:04 Albumin 4.1 gm/dl (3.4-5.0) 07/18/25 14:04 Globulin 2.5 gm/dl (2.5-4.0) 07/18/25 14:04 Albumin/Globulin Ratio 1.6 (0.9-2) 07/18/25 14:04 Triglycerides 87 mg/dl (0-150) 07/20/25 07:29 Cholesterol 158 mg/dl (0-200) 07/20/25 07:29 LDL Cholesterol, Calc 66 mg/dl 07/20/25 07:29 VLDL Cholesterol, Calc 17 mg/dl (0-30) 07/20/25 07:29 HDL Cholesterol 75 mg/dl 07/20/25 07:29 Cholesterol/HDL Ratio 2.1 (0-5) 07/20/25 07:29 Procalcitonin 0.05 ng/ml (0-0.5) 07/20/25 07:29 Urine Color Yellow 07/19/25 05:49 Urine Appearance Clear (Clear) 07/19/25 05:49 Urine pH 6.0 (4.5-7.5) 07/19/25 05:49 Ur Specific [place] 1.042 (1.000-1.030) H 07/19/25 05:49 Urine Protein Negative (Negative) 07/19/25 05:49 Urine Glucose (UA) Negative (Negative) 07/19/25 05:49 Urine Ketones Negative (Negative) 07/19/25 05:49 Urine Blood Negative (Negative) 07/19/25 05:49 Urine Nitrite Negative (Negative) 07/19/25 05:49 Urine Bilirubin Negative (Negative) 07/19/25 05:49 Urine Urobilinogen Negative (Negative) 07/19/25 05:49 Ur Leukocyte Esterase Negative (Negative) 07/19/25 05:49 Urine Comment 07/19/25 05:49 Adenovirus (PCR) Not Detected (NotDetected) 07/19/25 Unknown B. pertussis DNA (PCR) Not Detected (NotDetected) 07/19/25 Unknown B.parapertussis DNA PCR Not Detected (NotDetected) 07/19/25 Unknown C. pneumoniae DNA (PCR) Not Detected (NotDetected) 07/19/25 Unknown Coronavirus OC43 (PCR) Not Detected (NotDetected) 07/19/25 Unknown Coronavirus HKU1 (PCR) Not Detected (NotDetected) 07/19/25 Unknown Coronavirus 229E (PCR) Not Detected (NotDetected) 07/19/25 Unknown SARS-CoV-2 (PCR) Not Detected (NotDetected) 07/19/25 Unknown Coronavirus NL63 (PCR) Not Detected (NotDetected) 07/19/25 Unknown Human Metapneumovir PCR Not Detected (NotDetected) 07/19/25 Unknown Influenza Type A (PCR) Not Detected (NotDetected) 07/19/25 Unknown Influenza Type B (PCR) Not Detected (NotDetected) 07/19/25 Unknown M. pneumoniae (PCR) Not Detected (NotDetected) 07/19/25 Unknown Parainfluenza 1 (PCR) Not Detected (NotDetected) 07/19/25 Unknown Parainfluenza 2 (PCR) Not Detected (NotDetected) 07/19/25 Unknown Parainfluenza 3 (PCR) Not Detected (NotDetected) 07/19/25 Unknown Parainfluenza 4 (PCR) Not Detected (NotDetected) 07/19/25 Unknown RSV (PCR) Not Detected (NotDetected) 07/19/25 Unknown Entero/Rhino (PCR) Not Detected (NotDetected) 07/19/25 Unknown Impressions Chest X-Ray 07/18/25 14:08 XR chest 1V portable CLINICAL HISTORY: Dyspnea COMPARISON STUDY: 05/01/2024 FINDINGS: Heart size and pulmonary vasculature are normal. Stable hyperexpanded lungs. No consolidation or pleural effusion. No pneumothorax. IMPRESSION: Emphysema without evidence of acute pneumonia. ACT 112: Negative or not required by law. Electronically signed by: Florentino Carvajal M.D. 07/18/2025 2:23 PM Chest CTA 07/18/25 16:50 Clinical history: Rule out pulmonary embolism Technique: Axial computed tomography images were obtained of the chest after the administration of intravenous contrast according to the CT angiogram protocol Comparison is made to the prior CT dated 05/02/2024 Findings: There is no definite sign of pulmonary embolism. There is severe emphysema. There is mild atelectasis or scar in the lingula and left lower lobe. There is a small calcified granuloma in the right upper lobe anterior segment. There is no pleural effusion or pneumothorax. There is no sign of pulmonary fibrosis or other diffuse interstitial process. No endobronchial lesion is seen There is no mediastinal, hilar, or axillary adenopathy. The thoracic aorta appears unremarkable with no sign of aneurysm or dissection. 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 There is no pericardial effusion. There is coronary atherosclerosis The visualized upper abdomen appears unremarkable. No fracture is seen. No focal osseous lesion is evident Impression: 1. No definite sign of pulmonary embolism 2. Emphysema Electronically signed by Eh Cason 07-18-2025 6:58 PM Ordered Studies 07/18/25 16:50 CT angio chest PE protocol Stat Hospital Course (1) COPD with exacerbation: Acute COPD Exacerbation Prior tobacco abuse H/O End Stage COPD Prior tobacco use disorder --Chest CTA:No definite sign of pulmonary embolism. Emphysema - BioFire negative - Procalcitonin normal Continue IV Solu-Medrol>> transition to prednisone Continue nebs Xopenex as needed Continue supplemental oxygen Appreciate pulmonology input Nocturnal oximetry study, ABG reviewed. Patient does not qualify for BiPAP per pulmonology Needs follow-up with pulmonology on discharge Plan to discharge home with (2) Elevated troponin: NSTEMI type II [place] PACs --Palpitations likely due to above --ECHO: Moderate concentric LVH. EF 45 to 50%. Mild hypokinesis of anterolateral wall from mid ventricle to apex. Right ventricle systolic pressure elevated at 30 to 40 mmHg. --Lipid Panel: Within normal limits Troponin trended down Appreciate cardiology input: Discussed with Dr. Frank on 07/21/2025: Recommends no further intervention Monitor and replete electrolytes as needed Advised to follow-up with cardiology as outpatient (3) Anxiety: Not been taking any medications for anxiety Will try hydroxyzine and try to avoid benzodiazepines Monitor Symptomatic PACs/PVCs Started on metoprolol succinate 12.5 mg twice a day Anxiety contributing as well Monitor (4) HTN (hypertension): Continue lisinopril Also started on metoprolol as above Increased lisinopril to 10 mg daily for better control of blood pressure Monitor and adjust medications as needed Prediabetes Hyperglycemia likely due to steroids HbA1C:5.9 (5) Severe malnutrition: Nutritional assessment (6) HLD (hyperlipidemia): Continue statin DVT Px: SQ Heparin CODE STATUS Full Code Disposition Home with home health Total Time Total Time Spent Total Time Spent (In Minutes): 52 minutes Discharge Plan Discharge Items Patient Disposition: Home - Home Health Services Reason For Visit: COPD EXC Discharge Diagnosis: Acute COPD exacerbation Premature atrial and ventricular contractions Chronic respiratory failure with hypoxia Anxiety disorder Hypertension Condition on Discharge: Serious Activity: Per Instructions section Exercise/Sports: Wait until after follow-up appointment Non-emergency contact: Primary Care Provider and Doorkeeper Call non-emergency contact if: you have any medication questions, your symptoms worsen, your pain is concerning for you and you have a fever Follow-up/Referrals: Elvia Kidd MD [Primary Care Provider] - (The office will call you with a follow up appointment.) Diet: Heart Healthy Addtl Attending Provider Instructions: -- Follow-up with your primary care physician in 1 week -- Follow-up with your inspector set up and lay out in 1 to 2 weeks as recommended --Complete the prednisone tapering course as recommended Prednisone tapering course Start taking prednisone 30 mg daily for 2 days, then take 20 mg daily for 2 days, then take 10 mg daily for 2 days. -- Your lisinopril dose is increased to 10 mg daily for better control of your blood pressure. Monitor your blood pressure regularly as advised and discussed with your primary care physician for further adjustment of medications as needed. Seek immediate medical attention if your symptoms reoccur or worsen Please review medication list provided on discharge for any medication changes as instructed. Please call if you have any questions or problems. You can reach a [facility] hospitalist on duty at [facility] 24 hours a day by calling [phone] Pending Studies at Discharge: No Stand-Alone Forms: My [facility], Smoking Cessation Medications and DC Order Prescriptions: New metoprolol succinate 25 mg Tablet Extended Release 24 Hr 12.5 mg PO BID Qty: 30 1RF hydroxyzine HCl 10 mg Tablet 10 mg PO Q8H PRN (Reason: anxiety) Qty: 30 0RF prednisone 10 mg tablet 10 mg PO DIRECTED Qty: 12 0RF Rx Instructions: Start taking prednisone 30 mg daily for 2 days, then take 200 mg daily for 2 days, then take 10 mg daily for 2 days. Continued rosuvastatin 20 mg tablet 20 mg PO HS levalbuterol tartrate 45 mcg/actuation HFA aerosol inhaler 1 puff INHALATION DAILY PRN (Reason: Shortness Of Breath Or Wheezing) Trelegy Ellipta 100-62.5-25 mcg blister with device 1 inh INHALATION DAILY Rx Instructions: PER PT "USING THE 100-62.5-25 UNTIL ALL, THEN WILL START THE 200-62.5-25 DOSE". ipratropium-albuterol 0.5 mg-3 mg(2.5 mg base)/3 mL solution for nebulization 3 ml INHALATION DIRECTED PRN (Reason: Shortness Of Breath Or Wheezing) nitroglycerin 0.4 mg tablet, sublingual 0.4 mg sublingual DIRECTED PRN (Reason: Chest Pain) Rx Instructions: PER PT "USE A CHEWABLE ASA 81MG, PLACE UNDER TONGUE, WORKS JUST FINE". "SAVE NITRO FOR " aspirin 81 mg Tablet,Chewable 81 mg PO DAILY PRN (Reason: CHEST PAIN/PALPATATIONS) Rx Instructions: PER PT "PLACE UNDER TONGUE WHEN I GET THESE PAINS. SEEMS TO WORK JUST FINE". montelukast 10 mg tablet 10 mg PO DAILY PRN (Reason: Congestion) cholecalciferol (vitamin D3) [Vitamin D3] 25 mcg (1,000 unit) Capsule 25 mcg PO DAILY Changed lisinopril 5 mg tablet 10 mg PO DAILY Qty: 0 0RF Discharge Orders: Discharge Order (Routine); Ordered 07/23/25 Ordered By: Dameon Davalos Admission Data Admit Date/Time: 07/18/25 18:32 Attending Provider: Dameon Davalos Admit Provider: Kenney Gould Primary Care Provider: Elvia Kidd Other Providers: Simone Paredes; Cole Carter; Evelio Garcia; Balbir Erwin; Aaron Frank; Marshall Jane Jr; Lobito Beavers; Tamiko Cortez; Teodora Humphrey; Jason Pelletier; Jason Adams; Patricia Valladares; Jose Starr; Rosalee Martinez; Jose Lopez; Sonido Uriarte; Stepan Muir; Hong Piña; Earl Dorado; Vidya Baez; Azul Rosa; Jonathan Cassidy; Ameya Paiz; Giuseppe Sawyer; Lamar Tyler; Brett Henderson; Mane Moya; Lisa Raines; Jose Pereira; [facility]
[2025-07-24] MEDS: MONTELUKAST SODIUM 10 MG TABLET PO PRN (08:34)
--- NOTE | 2025-07-24 10:34 | Hospitalist Progress Note ---
Date of Service July 24, 2025 Assessment & Plan (1) COPD with exacerbation: Plan: Acute COPD Exacerbation Prior tobacco abuse H/O End Stage COPD Prior tobacco use disorder --Chest CTA:No definite sign of pulmonary embolism. Emphysema - BioFire negative - Procalcitonin normal Continue IV Solu-Medrol>> transition to prednisone Continue nebs Xopenex as needed Continue supplemental oxygen Appreciate pulmonology input Nocturnal oximetry study, ABG reviewed. Patient does not qualify for BiPAP per pulmonology Needs follow-up with pulmonology on discharge Plan to discharge home with today (2) Elevated troponin: Plan: NSTEMI type II [place] PACs --ECHO: Moderate concentric LVH. EF 45 to 50%. Mild hypokinesis of anterolateral wall from mid ventricle to apex. Right ventricle systolic pressure elevated at 30 to 40 mmHg. --Lipid Panel: Within normal limits Troponin trended down Appreciate cardiology input: Discussed with Dr. Frank on 07/21/2025: Recommen ds no further intervention Monitor and replete electrolytes as needed Advised to follow-up with cardiology as outpatient (3) Anxiety: Plan: Not been taking any medications for anxiety Will try hydroxyzine and try to avoid benzodiazepines Monitor Symptomatic PACs/PVCs Started on metoprolol Anxiety contributing as well Monitor (4) HTN (hypertension): Plan: Continue lisinopril Also started on metoprolol as above Increased lisinopril to 10 mg daily for better control of blood pressure Monitor and adjust medications as needed Prediabetes Hyperglycemia likely due to steroids HbA1C:5.9 (5) Severe malnutrition: Plan: Nutritional assessment (6) HLD (hyperlipidemia): Plan: Continue statin DVT Px: SQ Heparin CODE STATUS Full Code Disposition Home with home health Admission and Anticipated Discharge Date Admission Date: July 18, 2025 Subjective Patient is seen and examined at bedside No new complaints States feeling better after having BM today Palpitations resolved Family at bedside Dyspnea continues to improve Denies any recurrence of chest pain Denies any dyspneea, dizziness, nausea, vomiting, abdominal pain Saturating well on 2 L nasal cannula Review of Systems Review of Systems: All systems reviewed & are unremarkable except as noted in Subjective Physical Exam Physical Exam: Physical Exam: Vitals signs as noted above General Appearance:Thin, frail, Elderly, no apparent distress Head: normocephalic, Atraumatic Eyes: normal inspection, EOMI Neck: supple, Trachea midline Respiratory/Chest: Diminished breath sounds, CTA Cardiovascular: S1, S2, No murmur Abdomen/GI:Soft, Non tender, Bowel sounds present Extremities/Musculoskeletal:normal inspection, no edema Neurologic/Psych:AAOX3, grossly no focal neurological deficits Skin: normal color, warm Results & Data Results & Data Vital Signs (Past 12 Hours) Vital Signs Temp Pulse Pulse Resp BP BP Pulse Ox 07/24/25 08:30 07/24/25 08:21 36.5 C 62 20 106/65 97 07/24/25 08:00 63 07/24/25 07:16 41 L 17 96 07/24/25 02:33 36.3 C L 77 18 134/75 96 07/24/25 01:17 76 18 98 07/23/25 22:57 36.5 C 62 18 128/75 94 O2 Del Method O2 Flow Rate 07/24/25 08:30 Nasal Cannula 2 07/24/25 08:21 Nasal Cannula 2 07/24/25 08:00 07/24/25 07:16 Nasal Cannula 2 07/24/25 02:33 Nasal Cannula 2 07/24/25 01:17 Nasal Cannula 2 07/23/25 22:57 Nasal Cannula 2
--- NOTE | 2025-07-24 10:39 | Discharge Summary ---
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 She denies any chest pain or palpitation or any swelling of the legs. denies any fever and/or chills, does not have any abdominal pain nausea or vomiting. She was noted to have acute exacerbation of COPD and needed to rule out pulmonary embolism. She received intravenous Solu-Medrol and nebulized bronchodilator and was admitted to medical telemetry unit for continuation of care. She also received oral dose of lorazepam for anxiety. She also complained that she has been losing weight along for a long time. She was explained that this is more likely her chronic respiratory failure and COPD. Admission Exam Per Admitting Provider Physical Exam: Lying in bed with moderate shortness of breath at rest Constitutional: + ill appearing and + thin Eyes: PERRL, conjunctivae normal, anicteric sclerae Neck: trachea midline, no thyromegaly Respiratory: + respiratory distress, + labored breath ing and + retractions Auscultation: lungs clear to auscultation bilaterally and + wheezes (Minimal wheezing bilaterally) Cardiovascular: Rate/Rhythm: regular rate and regular rhythm; not tachycardic Heart Sounds: normal S1 and normal S2; no murmur Extremities: no edema Gastrointestinal (Abdomen): Inspection/Auscultation: normal bowel sounds; abdomen not distended Percussion/Palpation: abdomen soft; abdomen nontender Musculoskeletal: Osteoarthritic changes but no acute arthritis involving any of the joint Skin: Scattered bruising generalized Neurologic: normal touch/pain/proprioception and moves all extremities; no focal motor deficits Lymphatic: no cervical or axillary lymphadenopathy Principal Diagnosis Acute COPD exacerbation Premature atrial and ventricular contractions Chronic respiratory failure with hypoxia Anxiety disorder Hypertension Discharge Data Allergies Allergy/AdvReac Type Severity Reaction Status Date / Time bee venom protein (honey bee) Allergy Intermediate EXTRA Verified 07/18/25 16:33 SWELLING AT SITES Consultations 07/18/25 17:10 ED Decision to Admit Stat 07/18/25 18:35 Consult Cardiology Routine 07/19/25 12:50 Consult Pulmonology Routine Procedures Performed Laboratory Results WBC 13.60 K/ul (4.8-10.8) H 07/23/25 06:08 RBC 5.07 M/uL (4.20-5.40) 07/23/25 06:08 Hgb 15.4 g/dL (12.0-16.0) 07/23/25 06:08 Hct 46.5 % (37.0-47.0) 07/23/25 06:08 MCV 91.7 fL (80.0-100.0) 07/23/25 06:08 MCH 30.4 pg (25.0-34.0) 07/23/25 06:08 MCHC 33.1 g/dL (32.0-36.0) 07/23/25 06:08 RDW Std Deviation 44.8 fL (36.4-46.3) 07/23/25 06:08 RDW Coeff of Aries 13.1 % (11.5-14.5) 07/23/25 06:08 Plt Count 214 K/uL (130-400) 07/23/25 06:08 MPV 10.8 fL (9.4-12.4) 07/23/25 06:08 Immature Gran % (Auto) 0.3 % 07/19/25 07:19 Neut % (Auto) 90.6 % 07/19/25 07:19 Lymph % (Auto) 7.3 % 07/19/25 07:19 [place] % (Auto) 1.7 % 07/19/25 07:19 Eos % (Auto) 0.0 % 07/19/25 07:19 Baso % (Auto) 0.1 % 07/19/25 07:19 Neut # (Auto) 8.76 K/uL (1.40-6.50) H 07/19/25 07:19 Lymph # (Auto) 0.71 K/uL (1.20-3.40) L 07/19/25 07:19 [place] # (Auto) 0.16 K/uL (0.11-0.59) 07/19/25 07:19 Eos # (Auto) 0.00 K/uL (0.00-0.50) 07/19/25 07:19 Baso # (Auto) 0.01 K/uL (0.00-0.20) 07/19/25 07:19 Immature Gran # (Auto) 0.03 K/uL (0.01-0.20) 07/19/25 07:19 ABG pH 7.46 (7.35-7.45) H 07/21/25 05:34 ABG pCO2 43 mmHg (35-46) 07/21/25 05:34 ABG pO2 80 mmHg (80-95) 07/21/25 05:34 ABG HCO3 31 mmol/L (19-24) H 07/21/25 05:34 ABG O2 Saturation 97.2 % (90-95) H 07/21/25 05:34 ABG Base Excess 6.0 mEq/L (-9-1.8) H 07/21/25 05:34 Yair Test Pos (Pos) 07/21/25 05:34 VBG pH 7.33 (7.36-7.41) L 07/18/25 14:04 VBG pCO2 63 mmHg (38-50) H 07/18/25 14:04 VBG pO2 51 mmHg 07/18/25 14:04 VBG HCO3 33 mmol/L 07/18/25 14:04 VBG O2 Saturation 77.8 % 07/18/25 14:04 VBG Base Excess 5.3 mEq/L 07/18/25 14:04 Oxygen Given 2L 07/21/25 05:34 Sodium 138 mmol/L (136-145) 07/23/25 06:08 Potassium 4.4 mmol/L (3.5-5.1) 07/23/25 06:08 Chloride 99 mmol/L (98-107) 07/23/25 06:08 Carbon Dioxide 32 mmol/L (21-32) 07/23/25 06:08 Anion Gap 7 (3-11) 07/23/25 06:08 BUN 33 mg/dl (6-23) H 07/23/25 06:08 Creatinine 0.68 mg/dl (0.6-1.2) 07/23/25 06:08 Est Cr Clr Drug Dosing 38.0 ml/min 07/23/25 06:08 eGFR 85.29 07/23/25 06:08 BUN/Creatinine Ratio 48.5 (10-20) H 07/23/25 06:08 Glucose 128 mg/dl (70-99(Fasting)) H 07/23/25 06:08 Estimat Average Glucose 123 mg/dl 07/21/25 06:58 Hemoglobin A1c 5.9 % (4.5-5.6) H 07/21/25 06:58 Calcium 9.5 mg/dl (8.6-10.3) 07/23/25 06:08 Phosphorus 3.1 mg/dl (2.5-4.9) 07/19/25 07:19 Magnesium 2.4 mg/dl (1.7-2.4) 07/21/25 06:58 Total Bilirubin 0.7 mg/dl (0.2-1.0) 07/18/25 14:04 AST 21 U/L (13-39) 07/18/25 14:04 ALT 12 U/L (7-52) 07/18/25 14:04 Alkaline Phosphatase 70 U/L (34-104) 07/18/25 14:04 Troponin I High Sens 29.0 pg/ml (0-14) H D 07/19/25 07:19 B-Natriuretic Peptide 86 pg/ml (0-100) 07/18/25 14:04 Total Protein 6.6 gm/dl (6.0-8.3) 07/18/25 14:04 Albumin 4.1 gm/dl (3.4-5.0) 07/18/25 14:04 Globulin 2.5 gm/dl (2.5-4.0) 07/18/25 14:04 Albumin/Globulin Ratio 1.6 (0.9-2) 07/18/25 14:04 Triglycerides 87 mg/dl (0-150) 07/20/25 07:29 Cholesterol 158 mg/dl (0-200) 07/20/25 07:29 LDL Cholesterol, Calc 66 mg/dl 07/20/25 07:29 VLDL Cholesterol, Calc 17 mg/dl (0-30) 07/20/25 07:29 HDL Cholesterol 75 mg/dl 07/20/25 07:29 Cholesterol/HDL Ratio 2.1 (0-5) 07/20/25 07:29 Procalcitonin 0.05 ng/ml (0-0.5) 07/20/25 07:29 Urine Color Yellow 07/19/25 05:49 Urine Appearance Clear (Clear) 07/19/25 05:49 Urine pH 6.0 (4.5-7.5) 07/19/25 05:49 Ur Specific [place] 1.042 (1.000-1.030) H 07/19/25 05:49 Urine Protein Negative (Negative) 07/19/25 05:49 Urine Glucose (UA) Negative (Negative) 07/19/25 05:49 Urine Ketones Negative (Negative) 07/19/25 05:49 Urine Blood Negative (Negative) 07/19/25 05:49 Urine Nitrite Negative (Negative) 07/19/25 05:49 Urine Bilirubin Negative (Negative) 07/19/25 05:49 Urine Urobilinogen Negative (Negative) 07/19/25 05:49 Ur Leukocyte Esterase Negative (Negative) 07/19/25 05:49 Urine Comment 07/19/25 05:49 Adenovirus (PCR) Not Detected (NotDetected) 07/19/25 Unknown B. pertussis DNA (PCR) Not Detected (NotDetected) 07/19/25 Unknown B.parapertussis DNA PCR Not Detected (NotDetected) 07/19/25 Unknown C. pneumoniae DNA (PCR) Not Detected (NotDetected) 07/19/25 Unknown Coronavirus OC43 (PCR) Not Detected (NotDetected) 07/19/25 Unknown Coronavirus HKU1 (PCR) Not Detected (NotDetected) 07/19/25 Unknown Coronavirus 229E (PCR) Not Detected (NotDetected) 07/19/25 Unknown SARS-CoV-2 (PCR) Not Detected (NotDetected) 07/19/25 Unknown Coronavirus NL63 (PCR) Not Detected (NotDetected) 07/19/25 Unknown Human Metapneumovir PCR Not Detected (NotDetected) 07/19/25 Unknown Influenza Type A (PCR) Not Detected (NotDetected) 07/19/25 Unknown Influenza Type B (PCR) Not Detected (NotDetected) 07/19/25 Unknown M. pneumoniae (PCR) Not Detected (NotDetected) 07/19/25 Unknown Parainfluenza 1 (PCR) Not Detected (NotDetected) 07/19/25 Unknown Parainfluenza 2 (PCR) Not Detected (NotDetected) 07/19/25 Unknown Parainfluenza 3 (PCR) Not Detected (NotDetected) 07/19/25 Unknown Parainfluenza 4 (PCR) Not Detected (NotDetected) 07/19/25 Unknown RSV (PCR) Not Detected (NotDetected) 07/19/25 Unknown Entero/Rhino (PCR) Not Detected (NotDetected) 07/19/25 Unknown Impressions Chest X-Ray 07/18/25 14:08 XR chest 1V portable CLINICAL HISTORY: Dyspnea COMPARISON STUDY: 05/01/2024 FINDINGS: Heart size and pulmonary vasculature are normal. Stable hyperexpanded lungs. No consolidation or pleural effusion. No pneumothorax. IMPRESSION: Emphysema without evidence of acute pneumonia. ACT 112: Negative or not required by law. Electronically signed by: Florentino Carvajal M.D. 07/18/2025 2:23 PM Chest CTA 07/18/25 16:50 Clinical history: Rule out pulmonary embolism Technique: Axial computed tomography images were obtained of the chest after the administration of intravenous contrast according to the CT angiogram protocol Comparison is made to the prior CT dated 05/02/2024 Findings: There is no definite sign of pulmonary embolism. There is severe emphysema. There is mild atelectasis or scar in the lingula and left lower lobe. There is a small calcified granuloma in the right upper lobe anterior segment. There is no pleural effusion or pneumothorax. There is no sign of pulmonary fibrosis or other diffuse interstitial process. No endobronchial lesion is seen There is no mediastinal, hilar, or axillary adenopathy. The thoracic aorta appears unremarkable with no sign of aneurysm or dissection. 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 There is no pericardial effusion. There is coronary atherosclerosis The visualized upper abdomen appears unremarkable. No fracture is seen. No focal osseous lesion is evident Impression: 1. No definite sign of pulmonary embolism 2. Emphysema Electronically signed by Eh Cason 07-18-2025 6:58 PM Ordered Studies 07/18/25 16:50 CT angio chest PE protocol Stat Hospital Course (1) COPD with exacerbation: Acute COPD Exacerbation Prior tobacco abuse H/O End Stage COPD Prior tobacco use disorder --Chest CTA:No definite sign of pulmonary embolism. Emphysema - BioFire negative - Procalcitonin normal Continue IV Solu-Medrol>> transition to prednisone Continue nebs Xopenex as needed Continue supplemental oxygen Appreciate pulmonology input Nocturnal oximetry study, ABG reviewed. Patient does not qualify for BiPAP per pulmonology Needs follow-up with pulmonology on discharge Plan to discharge home with today (2) Elevated troponin: NSTEMI type II AR PACs --ECHO: Moderate concentric LVH. EF 45 to 50%. Mild hypokinesis of anterolateral wall from mid ventricle to apex. Right ventricle systolic p ressure elevated at 30 to 40 mmHg. --Lipid Panel: Within normal limits Troponin trended down Appreciate cardiology input: Discussed with Dr. Frank on 07/21/2025: Recommends no further intervention Monitor and replete electrolytes as needed Advised to follow-up with cardiology as outpatient (3) Anxiety: Not been taking any medications for anxiety Will try hydroxyzine and try to avoid benzodiazepines Monitor Symptomatic PACs/PVCs Started on metoprolol Anxiety contributing as well Monitor (4) HTN (hypertension): Continue lisinopril Also started on metoprolol as above Increased lisinopril to 10 mg daily for better control of blood pressure Monitor and adjust medications as needed Prediabetes Hyperglycemia likely due to steroids HbA1C:5.9 (5) Severe malnutrition: Nutritional assessment (6) HLD (hyperlipidemia): Continue statin DVT Px: SQ Heparin CODE STATUS Full Code Disposition Home with home health Total Time Total Time Spent Total Time Spent (In Minutes): 52 minutes Discharge Plan Discharge Items Patient Disposition: Home - Home Health Services Reason For Visit: COPD EXC Discharge Diagnosis: Acute COPD exacerbation Premature atrial and ventricular contractions Chronic respiratory failure with hypoxia Anxiety disorder Hypertension Condition on Discharge: Serious Activity: Per Instructions section Exercise/Sports: Wait until after follow-up appointment Non-emergency contact: Primary Care Provider and Maintenance Foreman Call non-emergency contact if: you have any medication questions, your symptoms worsen, your pain is concerning for you and you have a fever Follow-up/Referrals: Elvia Kidd MD [Primary Care Provider] - (The office will call you with a follow up appointment.) Diet: Heart Healthy Addtl Attending Provider Instructions: -- Follow-up with your primary care physician in 1 week -- Follow-up with your infrastructure technician in 1 to 2 weeks as recommended -- Follow-up with your substation wireman in 1-2 weeks for further evaluation of palpitations as recommended --Complete the prednisone tapering course as recommended Prednisone tapering course Start taking prednisone 30 mg daily for 2 days, then take 20 mg daily for 2 days, then take 10 mg daily for 2 days. -- Your lisinopril dose is increased to 10 mg daily for better control of your blood pressure. Monitor your blood pressure regularly as advised and discussed with your primary care physician for further adjustment of medications as needed. Seek immediate medical attention if your symptoms reoccur or worsen Please review medication list provided on discharge for any medication changes as instructed. Please call if you have any questions or problems. You can reach a [facility] hospitalist on duty at [facility] 24 hours a day by calling [phone] Pending Studies at Discharge: No Stand-Alone Forms: My [facility], Smoking Cessation Medications and DC Order Prescriptions: New hydroxyzine HCl 10 mg Tablet 10 mg PO Q8H PRN (Reason: anxiety) Qty: 30 0RF prednisone 10 mg tablet 10 mg PO DIRECTED Qty: 12 0RF Rx Instructions: Start taking prednisone 30 mg daily for 2 days, then take 200 mg daily for 2 days, then take 10 mg daily for 2 days. metoprolol tartrate 25 mg tablet 25 mg PO BID Qty: 60 0RF Continued rosuvastatin 20 mg tablet 20 mg PO HS levalbuterol tartrate 45 mcg/actuation HFA aerosol inhaler 1 puff INHALATION DAILY PRN (Reason: Shortness Of Breath Or Wheezing) Trelegy Ellipta 100-62.5-25 mcg blister with device 1 inh INHALATION DAILY Rx Instructions: PER PT "USING THE 100-62.5-25 UNTIL ALL, THEN WILL START THE 200-62.5-25 DOSE". ipratropium-albuterol 0.5 mg-3 mg(2.5 mg base)/3 mL solution for nebulization 3 ml INHALATION DIRECTED PRN (Reason: Shortness Of Breath Or Wheezing) nitroglycerin 0.4 mg tablet, sublingual 0.4 mg sublingual DIRECTED PRN (Reason: Chest Pain) Rx Instructions: PER PT "USE A CHEWABLE ASA 81MG, PLACE UNDER TONGUE, WORKS JUST FINE". "SAVE NITRO FOR " aspirin 81 mg Tablet,Chewable 81 mg PO DAILY PRN (Reason: CHEST PAIN/PALPATATIONS) Rx Instructions: PER PT "PLACE UNDER TONGUE WHEN I GET THESE PAINS. SEEMS TO WORK JUST FINE". montelukast 10 mg tablet 10 mg PO DAILY PRN (Reason: Congestion) cholecalciferol (vitamin D3) [Vitamin D3] 25 mcg (1,000 unit) Capsule 25 mcg PO DAILY Changed lisinopril 5 mg tablet 10 mg PO DAILY Qty: 0 0RF Discharge Orders: Discharge Order (Routine); Ordered 07/24/25 Ordered By: Dameon Davalos Admission Data Admit Date/Time: 07/18/25 18:32 Attending Provider: Dameon Davalos Admit Provider: Kenney Gould Primary Care Provider: Elvia Kidd Other Providers: Simone Paredes; Cole Carter; Evelio Garcia; Balbir Erwin; Aaron Frank; Marshall Jane Jr; Lobito Beavers; Tamiko Cortez; Teodora Humphrey; Jason Pelletier; Jason Adams; Patricia Valladares; Jose Starr; Rosalee Martinez; Jose Lopez; Sonido Uriarte; Stepan Muir; Hong Piña; Earl Dorado; Vidya Baez; Azul Rosa; Jonathan Cassidy; Ameya Paiz; Giuseppe Sawyer; Lamar Tyler; Brett Henderson; Mane Moya; Lisa Raines; Jose Pereira; [facility]
[2025-07-24 12:25] VITALS: BP 146/78; TEMP 97.3
[2025-07-24 12:31] VITALS: RESP 21; O2SAT 95
[2025-07-24 15:21] VITALS: PULSE 92
== END 2025-07-24 14:29 | disposition home health service (06) | DRG 190 ==
LOC: ED 13:47 → SUATTDRO 18:32 → 2N 18:32